=== PATIENT | female | born 1955 ===

== ENCOUNTER 2023-09-23 11:41 | Inpatient (IN) | payer MEDICARE, MEDICAID, SELFPAY ==
--- NOTE | ~2023-09-23 | XR_ITS ---
EXAMINATION: XR LUMBOSACRAL SPINE CLINICAL INFORMATION: Left back pain status post fall. COMPARISON: CT dated 01/25/2019 and 08/12/2018 TECHNIQUE: Three views of the lumbosacral spine. FINDINGS: Superior endplate compression deformity at L1 is new as compared to prior studies with 50 percent loss of vertebral body height, possibly acute. Bones are osteopenic. Moderate right convex lumbar scoliosis is centered at L2. Moderate multilevel degenerative disc disease is characterized by loss of intervertebral disc height with endplate osteophytes. Facet arthropathy is present in the lower lumbar spine. Moderate osteoarthritis in the SI joints. No acute soft tissue findings. Atherosclerotic calcifications are present in the abdominal aorta. XR/XR lumbar spine 2-3V IMPRESSION: 1. Superior endplate compression deformity at L1 with 50 percent loss of vertebral body height is new as compared to 2019 and possibly acute. 2. Moderate multilevel degenerative spondylosis. 3. Moderate right convex lumbar scoliosis. 4. Osteopenia.
--- NOTE | ~2023-09-23 | CT_ITS ---
EXAMINATION: CT ABDOMEN AND PELVIS WITH CONTRAST CLINICAL INFORMATION: Fall. Low back pain, and abdominal tenderness. New G-tube with pus. COMPARISON: Previous ultrasound and CT of the abdomen and pelvis from 2019 TECHNIQUE: Multidetector volumetric images were obtained from the superior aspect of the liver through the pubic symphysis following administration 85 mL of Omnipaque 350 intravenous contrast. Sagittal and coronal reformatted images were obtained on the technologist's workstation. Oral contrast: Yes This CT examination was performed using dose optimization techniques as appropriate, variously including the following: *Automated exposure control *Adjustment of mA and/or kV according to patient size (this includes techniques or standardized protocols for targeted exams where dose is matched to indication/reason for exam; i.e. extremities or head) *Use of iterative reconstruction technique DLP: 347 mGy-cm FINDINGS: LIVER, GALLBLADDER, AND BILIARY TREE: The liver is normal in size, shape, and attenuation. No focal hepatic lesion or biliary ductal dilatation is present. The gallbladder is unremarkable with no evidence of radiopaque gallstones, gallbladder wall thickening, or obvious pericholecystic inflammatory changes. PANCREAS: Unremarkable. SPLEEN: Unremarkable. ADRENAL GLANDS: Unremarkable. KIDNEYS AND URETERS: The kidneys are normal in size, shape, and attenuation. [place] bilateral hydronephrosis and dilatation of the bilateral ureters. This may be secondary to bladder distention. No stone. Right renal cyst. No imaging follow-up recommended. No perinephric stranding. BLADDER: Well-distended. GASTROINTESTINAL TRACT: The small and large bowel are unremarkable. The appendix is unremarkable. G-tube in the stomach satisfactory position. No fluid collection adjacent to the G-tube. There is question of mild circumferential wall thickening of the distal stomach/antrum.. ABDOMINAL WALL: Small left inguinal hernia containing fat. LYMPH NODES: Normal. VASCULAR: Severe atherosclerotic disease. No aneurysm. PELVIC VISCERA: Unremarkable. OSSEOUS STRUCTURES: Acute appearing moderate compression fracture of the L1 vertebral body. Degenerative changes of the thoracic spine and mild scoliosis. Mild degenerative changes at the hip joints. CT/CT abdomen pelvis w IV con IMPRESSION: Moderate recent appearing L1 vertebral body compression fracture. Mild bilateral hydronephrosis and ureteral dilatation. The bladder is well-distended and this may be secondary to bladder distention. Differential would include reflux. G-tube in the stomach in satisfactory position. Question wall thickening of the distal stomach/antrum. Fleischner guidelines were followed.
--- NOTE | ~2023-09-23 | CT_ITS ---
EXAMINATION: CT SOFT TISSUE NECK WITH CONTRAST CLINICAL INFORMATION: Throat cancer. Mass. COMPARISON: None available. TECHNIQUE: Following intravenous administration of 85 mL of Omnipaque 350 contrast, helical imaging was performed in the axial plane with generation of coronal and sagittal reformatted images. This CT examination was performed using dose optimization techniques as appropriate, variously including the following: *Automated exposure control *Adjustment of mA and/or kV according to patient size (this includes techniques or standardized protocols for targeted exams where dose is matched to indication/reason for exam; i.e. extremities or head) *Use of iterative reconstruction technique DLP: 856 mGy-cm FINDINGS: There is a large soft tissue mass with cystic/necrotic components involving multiple fascial spaces. Within the mucosal spaces, tumor is present throughout the left oropharyngeal wall, the left glossotonsillar sulcus, the floor of the mouth extending across the midline to the right side, and along the left lateral tongue. Tumor also infiltrates into the left lateral aspect of the soft palate, the left retromolar trigone, and the left pterygomandibular raphe. Tumor is visible in the left gingivobuccal soft tissues as well. Between the symphyseal portion of the mandible and the angle of the mandible on the left side, there is complete tumoral erosion of the left hemimandible. Within the extra-mucosal soft tissues, tumor infiltrates into the left parapharyngeal fat space, the left parotid space, the left carotid space, the left buccal space, and most significantly fills the left deep submergence vehicle operator space. Multinodular tumor extends to the skin surface in the submental space and the left anterior cervical space. Tumor is present throughout the left submandibular triangle extending to the skin surface as well. Tumor infiltrates into and around the left sternocleidomastoid muscle as well. A large 3 cm area of ulceration is visible along the skin surface at the site of tumor at the level of the left submandibular triangle. There is potential spread of tumor into the left prevertebral soft tissues at the level of the uvula. There is partial thrombosis due to compression versus tumoral infiltration of the left internal jugular vein. The left carotid arterial vasculature is patent, though displaced by tumor. The left styloid process is engulfed by tumor. The left parotid gland is also completely enveloped by tumor. Left-sided cervical adenopathy visible along the internal jugular chain. The laryngeal structures are otherwise normal. Small nodules visible within the thyroid gland. The imaged mediastinum appears normal. Emphysematous changes visible within the lungs. There is linear scarring in the right upper lobe. A 0.5 cm spiculated subpleural nodule anteriorly in the right upper lobe is nonspecific, though further assessed on the patient's dedicated chest CT acquired contemporaneously on the same day. Multilevel cervical spondylosis noted with hypertrophic facet arthropathy and a reversal of the normal cervical lordosis. The paranasal sinuses and mastoid air cells are clear. The imaged portions of the brain demonstrate no acute abnormality. 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 CT/CT soft tissue neck w IV con IMPRESSION: Large soft tissue mass as described involving mucosal surfaces throughout the head and neck and multiple extra-mucosal soft tissue compartments with adenopathy and involvement of the overlying skin surface. Spiculated 0.5 cm subpleural nodule in the right upper lobe with adjacent scarring. Emphysematous changes. Thoracic findings further described on the patient's dedicated chest CT exam acquired contemporaneously on the same day. 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
--- NOTE | ~2023-09-23 | CT_ITS ---
EXAMINATION: CT CHEST WITHOUT CONTRAST CLINICAL INFORMATION: Fall. Back and rib pain. COMPARISON: Previous chest CT from 2019 TECHNIQUE: Multidetector volumetric CT imaging of the chest was done. Axial MIP volume rendering provided. Sagittal and coronal reformatted images were obtained. This CT examination was performed using dose optimization techniques as appropriate, variously including the following: *Automated exposure control *Adjustment of mA and/or kV according to patient size (this includes techniques or standardized protocols for targeted exams where dose is matched to indication/reason for exam; i.e. extremities or head) *Use of iterative reconstruction technique DLP: 181 mGy-cm FINDINGS: LUNGS: There is linear scarring and mild traction bronchiectasis seen in the right upper lobe that is stable. There is mild biapical pleural and parenchymal scarring. There is mild emphysema. Lungs are otherwise clear. MEDIASTINUM: Normal heart size. Severe coronary artery calcification. Aortic valve calcification. Normal caliber thoracic aorta. No pericardial effusion. No enlarged lymph nodes. CORONARY ARTERY CALCIFICATION: Severe PLEURA: There is no pleural effusion. Mild pleural thickening adjacent to the rib fractures. No pneumothorax. AXILLA: No lymphadenopathy. UPPER ABDOMEN: Unremarkable. OSSEOUS STRUCTURES: There are fractures of the right 11th and 12th posterior ribs that appear acute There is a fracture of the left posterior 10th rib that appears old and ununited. There is a nondisplaced fracture of the right L1 transverse process. Compression fracture of the L1 vertebral body. CT/CT chest wo IV con IMPRESSION: Right posterior 11th and 12th and left posterior 10th rib fractures that appear acute. Old ununited left posterior 10th rib fracture. Stable scarring and bronchiectasis in the right upper lobe. Nondisplaced fracture of the right L1 transverse process and L1 compression fracture, acute, described in abdominal and pelvic CT report. Fleischner guidelines were followed.
[2023-09-23 12:04] VITALS: BP 100/60; PULSE 114; RESP 18; TEMP 37.7; O2SAT 97; BMI 20.2
--- NOTE | 2023-09-23 12:05 | ED_ITS ---
HPI - General Adult General Chief complaint: General Medical Stated complaint: Cancer PT, multiple complaints Time Seen by Provider: 09/23/23 13:38 Source: patient, family, RN notes reviewed and old records reviewed Mode of arrival: ambulatory History of Present Illness ED Provider: Sonal Flores PA-C HPI narrative: 68-year-old female with a past medical history of hypercalcemia, throat cancer, HTN, HLD, diabetes, dysphagia, HIV (noncompliant on meds x weeks), presenting to the ED due to anorexia, low back/rib pain s/p mechanical fall a few weeks ago, infected G-tube, and worsening jaw cancer from [place]. Patient states she was recently admitted to hospital in [place] due to inability to tolerate p.o., had G-tube placed at that time, and also sustained mechanical fall during visit onto back. Reports since fall has been having worsening low back pain with movement and urinary incontinence. Daughter states she brought patient from [place] the [place] for [place] care. Patient has not yet started chemotherapy or radiation. Patient has been noncompliant on her HIV medications due to inability to tolerate p.o./since recent ED admission in [place]. Denies known fever, chills, CP/SOB, nausea/vomiting, urinary retention, focal weakness. Related Data Allergies Allergy/AdvReac Type Severity Reaction Status Date / Time No Known Allergies Allergy Verified 09/23/23 12:09 [No Known Allergies*] Review of Systems 2 Review of Systems: Constitutional: + Weight loss, No Fever, No Chills, + Fatigue, No Malaise, + anorexia ENT/Mouth: + worsening jaw cancer, No Ear Pain, No Nasal Congestion,No Hoarseness, No sore throat, No Rhinorrhea, No Swallowing Difficulty Eyes: No Eye Pain, No Swelling, No Redness, No Vision Changes Cardiovascular: No Chest Pain, No SOB, No Edema, No Palpitations Respiratory: No Cough, No Sputum, No Dyspnea Gastrointestinal: No Nausea, No Vomiting, No Diarrhea, No Constipation, + Abdominal pain Genitourinary: No Dysuria, No Urinary Frequency, No Hematuria, + Urinary Incontinence, No retention, No Flank Pain Musculoskeletal: + joint pain, + Myalgias, No Joint Swelling Skin: No Skin Lesions, No rash Neuro: +Generalized Weakness, No Numbness, No Paresthesias, No Loss of Consciousness, No Dizziness\ Yes all other systems are reviewed and are negative Constitutional: Constitutional: Reports as per [facility] Past Medical History Attestation statement: The following information was validated with the patient. Source: old records reviewed Social History Social History Advance Directives: No Advance Directives Information Provided: Yes Do you have a plan to hurt others: No Plan Physical Exam ED Vital Signs: Vital Signs - 24 hr 09/23/23 12:04 09/23/23 16:03 Temperature 99.8 F 98.6 F Pulse Rate 114 H 99 Respiratory Rate 18 18 Blood Pressure 100/60 122/57 L Pulse Oximetry 97 97 Oxygen Delivery Method Room Air Room Air BMI result Body Mass Index 20.2 Const General: no acute distress Nutritional Appearance: malnourished Orientation/consciousness: patient oriented x3 Limitations: no limitations HENMT Other: Please refer to images above. Open wound as depicted with surrounding masses. Mild overlying erythema/warmth. No pus Head: Yes atraumatic Ears: hearing grossly normal bilaterally General nose exam: Normal external nose present Eyes General: appearance normal, both eyes and all related structures EOM: EOMs intact bilaterally Neck Neck: Yes no meningeal signs Chest Other: + bilateral lower posterior rib tenderness to palpation. No flail chest. No crepitus. Chest palpation & inspection: normal inspection of the chest and no crepitus Resp Effort & Inspection: normal respiratory effort and no respiratory distress Auscultation: clear to auscultation bilaterally Cardio Rate: regular rate Heart sounds: S1 normal heart sound present and S2 normal heart sound present GI Other: Please refer to images above. G-tube intact with surrounding pus and erythema. Potter intact to midline area. Inspection: Yes normal to inspection Palpation (GI): Soft to palpation, Tenderness to palpation present (GI) (Diffusely), no guarding and not rigid General: Yes no CVA tenderness Back/Spine/Pelvis Other: No midline cervical/thoracic/lumbar spinous tenderness/step-off or deformity Back: no CVA tenderness Skin Rashes: no rashes Wounds: no wounds Neuro Other: Strength intact throughout. No saddle anesthesia. Sensation intact to light touch. Neurovascular intact distally General: patient oriented x3, tone normal, moves all extremities, no meningeal signs and no focal motor deficits Cranial nerves: Yes CN's II-XII intact bilaterally Cognition (Neuro): normal cognition Gait exam (Neuro): Normal gait present Motor exam (neuro): 5/5 motor strength present throughout Extrem General: Yes normal to inspection Course Course Course Narrative: This is a Rapid Medical Examination (RME) performed by Bob Cueva PA-C in triage. Full HPI, ROS, assessment and treatment plan per primary provider in the Main ED. 68 yo female hx of HIV, jaw cancer s/p resection with g tube placed, here w/ daughter for eval of multiple complaints. she has history of jaw cancer, s/p resection approx 6 months ago. was admitted 2 mo later for FTT. while admitted, fell and hurt her low back. states she is supposed to be having chemo however has not yet started. she was d/c from hospital in [place] 3 days ago and has not eaten since this time as they did not discharge her with instructions on how to use the G-tube. admits to left lumbar pain at present. thin appearing female. NAD. G-tube noted to left abdomen. The area is dressed. Unable to examine in deptch in triage. No midline spinous tenderness or step off deformity. No paraspinal muscle tenderness. Plan: labs, UA, xr ordered -leukocytosis of 34.4. Thrombocytopenia. Hyperglycemia with glucose of 515 without anion gap, beta hydroxybutyrate mildly elevated, sodium 128 > corrected sodium for hyperglycemia is 135 -BUN 21 -lactic acid WNL XR lumbar spine 2-3V IMPRESSION: 1. Superior endplate compression deformity at L1 with 50 percent loss of vertebral body height is new as compared to 2019 and possibly acute. 2. Moderate multilevel degenerative spondylosis. 3. Moderate right convex lumbar scoliosis. 4. Osteopenia. -ESR/CRP elevated. Repeat POC 332 -1630--ED care transferred to [facility] pending remaining labs/viral testing, UA, and imaging. Anticipate admission vs transfer Reevaluation(s) Reevaluation #1: Patient received in sign-out at change of shift pending CT imaging and disposition. I reviewed the patient's case including the patient's imaging. She has extremely extensive tumor infiltration to the left side of the face, jaw, throat, neck. I did discuss this with Oncology, Dr Alejandro. She agrees with admission for IV antibiotics and pain control. She states that there is absolutely no role for surgical intervention at this time. There is no airway involvement, therefore there is no indication for transfer to tertiary facility at this time. Will discuss with the hospitalist. The patient will be seen by Oncology tomorrow Time: 19:01 Medications Administered Discontinued Medications Generic Name Dose Route Start Last Admin Trade Name Freq PRN Reason Stop Dose Admin Lactated Ringer's 1,000 mls @ 999 mls/hr 09/23/23 14:30 09/23/23 16:10 Lr IV 09/23/23 15:30 Infused .Q1H1M CHAYA Infusion Vancomycin HCl 1,000 mg/ 270 mls @ 270 mls/hr 09/23/23 14:26 09/23/23 16:08 Sodium Chloride IV 09/23/23 15:25 Infused ONCE ONE Infusion Piperacillin Sod/Tazobactam 100 mls @ 200 mls/hr 09/23/23 14:26 09/23/23 15:36 Sod 4.5 gm/ Sodium Chloride IV 09/23/23 14:55 Infused ONCE ONE Infusion Sodium Chloride 1,000 mls @ 999 mls/hr 09/23/23 14:30 09/23/23 16:09 Ns IV 09/23/23 15:30 Infused .Q1H1M CHAYA Infusion Iohexol 100 ml 09/23/23 15:48 09/23/23 15:49 Iohexol 350 Mg/Ml 100 Ml Infus..Btl IV 09/23/23 15:49 85 ml ONCE ONE Administration Morphine Sulfate 4 mg 09/23/23 17:26 09/23/23 17:39 Morphine Sulfate 4 Mg/Ml Cartridge IVPUSH 09/23/23 17:27 4 mg ONCE ONE Administration Protocol Ondansetron HCl 4 mg 09/23/23 17:26 09/23/23 17:39 Ondansetron Hcl 4 Mg/2 Ml Vial IVPUSH 09/23/23 17:27 4 mg ONCE ONE Administration Medical Decision Making Medical Decision Making MDM Narrative: 68-year-old female with a past medical history of hypercalcemia, throat cancer, HTN, HLD, diabetes, dysphagia, HIV (noncompliant on meds x weeks), presenting to the ED due to anorexia, low back/rib pain s/p mechanical fall a few weeks ago, infected G-tube, and worsening jaw cancer from [place]. On exam tachycardic, NAD, physical exam as noted above. Please refer to images. Concern for worsening undifferentiated cancer vs metastasis vs metabolic/infectious etiology including infected G-tube site. Concern for fractured ribs/vertebrae. Low suspicion for cauda equina without saddle anesthesia or focal deficits. Plan: EKG, labs, imaging, UA, lactic/blood cultures Low suspicion for severe sepsis at this time Case d/w ED Attending Dr. Thakkar also evaluated patient and is in agreement with plan Please refer to course for remaining clinical decision making, interpretation of labs/imaging results, and discussions with consultants and/or family members. Differential Diagnosis Differential Diagnoses: The differential diagnosis associated with the presentation includes As above Admission/Observation Consideration of admission/observation: Escalation of care including admission/observation considered Lab Data MDM Lab Attestation statement: I reviewed the patient's lab results. 09/23/23 12:18 09/23/23 12:18 Labs: Lab Results 09/23/23 09/23/23 09/23/23 Range/Units 12:18 14:28 14:48 WBC 34.4 H* (4.8-10.8) X10*3/uL RBC 3.59 L (4.20-5.50) X10*6/uL Hgb 11.1 L (12.0-16.0) g/dl Hct 32.2 L (37.0-47.0) % MCV 89.7 (80.0-98.0) fL MCH 30.9 (27.0-33.0) pg MCHC 34.5 (31.0-35.0) g/dl RDW 13.6 (11.0-16.0) % Plt Count 559 H (160-400) X10*3/uL MPV 10.7 (9.4-12.3) fL Immature Gran % (Auto) 1.1 H (0.0-0.4) % Neut % (Auto) 93.1 H (45-73) % Lymph % (Auto) 1.7 L (20-40) % Mcdowell % (Auto) 3.8 (2-11) % Eos % (Auto) 0.1 (0-4) % Baso % (Auto) 0.2 (0-2) % Lymph # (Auto) 0.6 L (1.2-4.9) X10*3/uL Mcdowell # (Auto) 1.3 H (0.1-1.2) X10*3/uL Eos # (Auto) 0.0 (0.0-0.4) X10*3/uL Baso # (Auto) 0.1 (0.0-0.2) X10*3/uL Abs Immat Gran (auto) 0.38 H (0.00-0.03) X10*3/uL Absolute Neuts (auto) 32.1 H (2.0-8.3) x10*3/uL Absolute Nucleated RBC 0.000 (0.0-0.012) X10*3/uL Nucleated RBC % (auto) 0.0 (0.0-0.2) /100WBC Smear Tech's Comments VERIFIED ESR 92 H (0-20) MM/HR VBG pH (7.32-7.43) VBG pCO2 mmHg VBG pO2 mmHg VBG HCO3 (22-26) mmol/L VBG O2 Saturation % VBG Base Excess mmol/L Sodium 128 L (135-145) mmol/L Potassium 3.5 (3.3-5.1) mmol/L Chloride 94 L (96-108) mmol/L Carbon Dioxide 24 (22-29) mmol/L Anion Gap 14 (12-20) BUN 21 H (9-16) mg/dL Creatinine 1.27 (0.5-1.4) mg/dL Estim Creat Clear Calc 24.6 Estimated GFR 42 POC Glucose (60-115) mg/dL Random Glucose 515 H* (60-115) mg/dL Lactic Acid 1.6 (0.5-2.0) mmol/L Calcium 12.1 H (8.4-10.2) mg/dL Magnesium 2.0 (1.6-2.6) mg/dL Total Bilirubin 0.5 (0.0-1.0) mg/dL AST 24 (5-31) U/L ALT 8 (0-31) U/L Alkaline Phosphatase 127 H (39-117) U/L C-Reactive Protein 7.64 H (< or = 0.50) mg/dL Total Protein 8.6 H (6.5-8.0) g/dL Albumin 3.5 (3.5-5.0) g/dL Lipase 65 (8-78) U/L Beta-Hydroxybutyrate 0.68 H (0.02-0.27) mmol/L Influenza Type A (PCR) (Negative) Influenza Type B (PCR) (Negative) RSV RNA Qual (PCR) (Negative) SARS-CoV-2 RNA (RT-PCR) (Negative) 09/23/23 09/23/23 09/23/23 Range/Units 14:49 15:58 17:19 WBC (4.8-10.8) X10*3/uL RBC (4.20-5.50) X10*6/uL Hgb (12.0-16.0) g/dl Hct (37.0-47.0) % MCV (80.0-98.0) fL MCH (27.0-33.0) pg MCHC (31.0-35.0) g/dl RDW (11.0-16.0) % Plt Count (160-400) X10*3/uL MPV (9.4-12.3) fL Immature Gran % (Auto) (0.0-0.4) % Neut % (Auto) (45-73) % Lymph % (Auto) (20-40) % Mcdowell % (Auto) (2-11) % Eos % (Auto) (0-4) % Baso % (Auto) (0-2) % Lymph # (Auto) (1.2-4.9) X10*3/uL Mcdowell # (Auto) (0.1-1.2) X10*3/uL Eos # (Auto) (0.0-0.4) X10*3/uL Baso # (Auto) (0.0-0.2) X10*3/uL Abs Immat Gran (auto) (0.00-0.03) X10*3/uL Absolute Neuts (auto) (2.0-8.3) x10*3/uL Absolute Nucleated RBC (0.0-0.012) X10*3/uL Nucleated RBC % (auto) (0.0-0.2) /100WBC Smear Tech's Comments ESR (0-20) MM/HR VBG pH 7.44 H (7.32-7.43) VBG pCO2 38 mmHg VBG pO2 43 mmHg VBG HCO3 26 (22-26) mmol/L VBG O2 Saturation 74.0 % VBG Base Excess 2.6 mmol/L Sodium (135-145) mmol/L Potassium (3.3-5.1) mmol/L Chloride (96-108) mmol/L Carbon Dioxide (22-29) mmol/L Anion Gap (12-20) BUN (9-16) mg/dL Creatinine (0.5-1.4) mg/dL Estim Creat Clear Calc Estimated GFR POC Glucose 332 H (60-115) mg/dL Random Glucose (60-115) mg/dL Lactic Acid (0.5-2.0) mmol/L Calcium (8.4-10.2) mg/dL Magnesium (1.6-2.6) mg/dL Total Bilirubin (0.0-1.0) mg/dL AST (5-31) U/L ALT (0-31) U/L Alkaline Phosphatase (39-117) U/L C-Reactive Protein (< or = 0.50) mg/dL Total Protein (6.5-8.0) g/dL Albumin (3.5-5.0) g/dL Lipase (8-78) U/L Beta-Hydroxybutyrate (0.02-0.27) mmol/L Influenza Type A (PCR) NEGATIVE (Negative) Influenza Type B (PCR) NEGATIVE (Negative) RSV RNA Qual (PCR) NEGATIVE (Negative) SARS-CoV-2 RNA (RT-PCR) NEGATIVE (Negative) Independent Interpretation I performed an independent interpretation of an: EKG, Plain X-Ray and CT Scan Radiology Impression Discussion of test interpretation with radiology: I have reviewed the radiologist's reading. Independent Historian Clinical information obtained from an independent historian. History obtained from or confirmed by: Other (Daughter) External Record Review External record reviewed: Inpatient record, Office record, Outpatient record, Prior outpatient labs, Prior outpatient radiology, Primary care record and Outside ED record Tests considered The following testing was considered but not selected: As above Prescription Management I considered prescription management with: Pain Medication and Antibiotic Chronic Conditions Patient?s care impacted by: Diabetes and Cancer Social Determinants Patient?s care significantly limited by Social Determinants of Health including: Low income, Problems related to primary support group and Other Social Determinant of Health Critical Care Time Critical Care Time Critical Care Time: Yes Total Critical Care Time: 75 Attestation: I have personally provided critical care time exclusive of time spent on separately billable procedures. Time includes review of lab data, radiology results, discussion with consultants, and monitoring for potential decompensation. Intervention performed as documented. Discharge Plan Discharge Clinical Impression: Facial mass, Closed compression fracture of L1 vertebra, Acute hyperglycemia, Closed rib fracture Patient Disposition: Admitted As Inpatient Print Language: Kyrgyz
[2023-09-23 12:44] LABS: Basophils Absolute Auto 0.1 X10*3/uL (0.0-0.2); Basophils Percent Auto 0.2 % (0-2); Eosinophils Percent Auto 0.1 % (0-4); Hematocrit 32.2 % (37.0-47.0); Hemoglobin 11.1 g/dl (12.0-16.0); Imm Gran Abs Auto 0.38 X10*3/uL (0.00-0.03); Imm Gran Pct Auto 1.1 % (0.0-0.4); Lymphocytes Absolute Auto 0.6 X10*3/uL (1.2-4.9); Lymphocytes Percent Auto 1.7 % (20-40); MANUAL DIFF FLAG SCAN; Mean Corpuscular HGB Conc 34.5 g/dl (31.0-35.0); Mean Corpuscular Hemoglobin 30.9 pg (27.0-33.0); Mean Corpuscular Volume 89.7 fL (80.0-98.0); Mean Platelet Volume 10.7 fL (9.4-12.3); Monocytes Absolute Auto 1.3 X10*3/uL (0.1-1.2); Monocytes Percent Auto 3.8 % (2-11); Neutrophils Absolute Auto 32.1 x10*3/uL (2.0-8.3); Neutrophils Percent Auto 93.1 % (45-73); Platelet Count 559 X10*3/uL (160-400); Red Blood Count 3.59 X10*6/uL (4.20-5.50); Red Cell Distribution Width 13.6 % (11.0-16.0); SCAN SMEAR FLAG 1
[2023-09-23 12:51] LABS: White Blood Count 34.4 X10*3/uL (4.8-10.8)
[2023-09-23 13:04] LABS: Alanine Aminotransferase 8 U/L (0-31); Albumin Level 3.5 g/dL (3.5-5.0); Alkaline Phosphatase 127 U/L (39-117); Anion Gap 14 (12-20); Aspartate Amino Transferase 24 U/L (5-31); Bilirubin Total 0.5 mg/dL (0.0-1.0); Blood Urea Nitrogen 21 mg/dL (9-16); Calcium 12.1 mg/dL (8.4-10.2); Carbon Dioxide 24 mmol/L (22-29); Chloride 94 mmol/L (96-108); Creatinine Clr Calc Pharmacy 24.6; Estimated Glomerular Filt Rate 42; Glucose Random 515 mg/dL (60-115); Lipase 65 U/L (8-78); Potassium 3.5 mmol/L (3.3-5.1); Sodium 128 mmol/L (135-145); Total Protein 8.6 g/dL (6.5-8.0)
[2023-09-23 13:13] LABS: SLIDE REVIEW VERIFIED
[2023-09-23 14:20] LABS: Beta-Hydroxybutyrate 0.68 mmol/L (0.02-0.27)
[2023-09-23 14:49] LABS: Lactic Acid 1.6 mmol/L (0.5-2.0)
--- NOTE | 2023-09-23 14:54 | ECG_ITS ---
Test Reason : tachycardia Blood Pressure : / mmHG Vent. Rate : 092 BPM Atrial Rate : 092 BPM P-R Int : 146 ms QRS Dur : 074 ms QT Int : 350 ms P-R-T Axes : 053 009 023 degrees QTc Int : 432 ms Normal sinus rhythm Nonspecific ST abnormality Abnormal ECG When compared to the previous EKG of No significant changes seen Referred By: Sonal Flores Electronically Signed By:JOHNSNO LOMELI MD
[2023-09-23 14:56] LABS: Venous Blood Gas Refer to POC result
[2023-09-23 14:56] LABS: VBG Base Excess 2.6 mmol/L; VBG HCO3 26 mmol/L (22-26); VBG pCO2 38 mmHg; VBG pH 7.44 (7.32-7.43); VBG pO2 43 mmHg
[2023-09-23 15:06] LABS: C Reactive Protein 7.64 mg/dL (< or = 0.50)
[2023-09-23] MEDS: Piperacillin Sodium/Tazobactam 4.5 GM in 0.9 % Sodium Chloride 100 ML IV (15:06)
[2023-09-23] MEDS: vancomycin HCL 1,000 MG in 0.9 % Sodium Chloride 250 ML 270 MG IV (15:08)
[2023-09-23] MEDS: 0.9 % Sodium Chloride 1,000 ML 999 ML IV (15:08)
[2023-09-23] MEDS: Lactated Ringers 1,000 ML 999 ML IV (15:09)
--- NOTE | 2023-09-23 15:17 | PC.NURSE ---
20gIV placed in the right as well as in the left forearm. patent/intact. labs obtained/sent to lab. IVF/abx administered per provider order. pt waiting to go to CT at this time. plan of care ongoing.
--- NOTE | 2023-09-23 15:25 | PC.NURSE ---
pt to CT at this time.
[2023-09-23 15:42] LABS: Erythrocyte Sedimentation Rate 92 MM/HR (0-20)
[2023-09-23] MEDS: iohexoL 350 MG/ML 100 ML INFUS..BTL IV (15:49)
[2023-09-23 16:02] LABS: Glucose, Whole Blood 332 mg/dL (60-115)
[2023-09-23 16:03] VITALS: BP 122/57; PULSE 99; RESP 18; TEMP 37; O2SAT 97
[2023-09-23] MEDS: Morphine Sulfate 4 MG/ML CARTRIDGE IVPUSH (17:39)
[2023-09-23] MEDS: ondansetron HCL 4 MG/2 ML VIAL IVPUSH (17:39)
--- NOTE | 2023-09-23 17:44 | PC.NURSE ---
pt c/o 1010 pain in left side of face as well as lower back. provider notified/aware. medication administered per provider order. effectiveness pending.
[2023-09-23 18:23] LABS: Influenza A PCR NEGATIVE (Negative); Influenza B PCR NEGATIVE (Negative); Resp Syncy Virus RNA Qual PCR NEGATIVE (Negative); SARS COV2 PCR INHOUSE NEGATIVE (Negative)
--- NOTE | 2023-09-23 19:16 | P.HPHOSP_ITS ---
History of Present Illness Date of Service: 09/23/23 Attending physician on admission: Rudi Arambula Chief Complaint: anorexia, back pain 68-year-old female with a past medical history of hypercalcemia, throat cancer, HTN, HLD, diabetes, dysphagia, HIV (noncompliant on meds x weeks), presenting to the ED due to anorexia, low back/rib pain s/p mechanical fall a few weeks ago, infected G-tube, and worsening jaw cancer from [place]. Patient states she was recently admitted to hospital in [place] due to inability to tolerate p.o., had G-tube placed at that time, and also sustained mechanical fall during visit onto back. Reports since fall has been having worsening low back pain with movement and urinary incontinence. Daughter states she brought patient [place]. THe patient and her daughter report she underwent resection of the gums and left jaw in November 2022 and was seen by oncology. Reports biopsy in january was negative for malignancy. She then developed lesions on the left cheek and again underwent excision. She was then told she has cancer of the ?jaw and that there was no chemo or radiation treatment available for her. She has developed progressive dysphagia and anorexia and was recently hospitalized in [facility] in the last few weeks and had g tube placed. Daughter states she was on glucerna but does not have any additional information about her tube feeds. She has been tolerating pureed diet and thin liquids but still does not take in much PO. She has also noted some purulent drainage from the site of the g tube insertion. She denies fevers, chills, abd pain, nausea, vomiting, ongoing dysphagia, cough, dizziness, sob, chest pain. She is complaining of back pain. Of note, while in the hospital it is reported the patient was put in charge of managing her home meds and due to the size of her HIV meds has not taken these in days vs weeks but is unsure. She did live in [place] 3 years ago and had been following with [facility] for infectious disease. On arrival, tachycardic to 114, vitals otherwise stable. She has a significant leukocytosis of 34.4 with left shift. She has a mild normocytic anemia with h/h 11.1/32.2%, plt 559. Creat 1.27, bun 21, sodium 128, chloride 94, calcium 12.1. Initial glucose 515, improved to 332 on admission. CRP 7.64, ESR 92. VBG ph 7.44, pco2 38, bicarb 26. Lumbar spine x-ray shows superior endplate compression deformity at L1 with 50% loss of vertebral body height as well as multilevel degenerative changes and complex lumbar scoliosis as well as osteopenia. Shows right posterior 11th and 12th and left posterior 10th rib fractures, possibly acute versus subacute with stable scarring and bronchiectasis in the right upper lobe. CT abdomen/pelvis shows again the L1 vertebral body compression fracture as well as mild bilateral hydronephrosis and ureteral dilatation possibly related to bladder distention. G-tube in the stomach is in satisfactory position. CT soft tissue neck shows large soft tissue mass involving mucosal surfaces throughout the head and neck and multiple extra mucosal soft tissue compartments with adenopathy and involvement of the overlying skin surface. 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 In the ED, treated with IV LR, 4 mg morphine, IV NS, Zosyn, ondansetron, and vancomycin. Review of Systems 2 Review of Systems: Yes all other systems are reviewed and are negative [facility] Medical History Hypercalcemia Dysphagia HLD (hyperlipidemia) HTN (hypertension) HIV (human immunodeficiency virus infection) Type 2 diabetes mellitus Cancer of head and neck Social History Patient Tobacco Use Status: Former Tobacco user Smoked in Last 30 Days: No Use of substances other than those prescribed or required for medical reasons: No Advance Directives: No Advance Directives Information Provided: Yes Do you have a plan to hurt others: No Plan Nutrition Risks: Difficulty chewing and Difficulty swallowing Meds Allergies Allergy/AdvReac Type Severity Reaction Status Date / Time No Known Allergies Allergy Verified 09/23/23 12:09 [No Known Allergies*] Home Medications ?Medication ?Instructions ?Recorded ?Confirmed ?Last Taken ?Type No Known Home Meds 09/23/23 09/23/23 Unknown History Physical Exam 2 Vital Signs and Narrative: Vital Signs: Last Vital Signs Temp 98.6 F 09/23/23 16:03 Pulse 99 09/23/23 16:03 Resp 18 09/23/23 16:03 BP 122/57 L 09/23/23 16:03 Pulse Ox 97 09/23/23 16:03 O2 Del Method Room Air 09/23/23 16:03 BMI result Body Mass Index 20.2 Constitutional - Awake and Alert, No apparent distress Eyes - PERRLA, EOMI Cardiovascular - S1S2, RRR, No edema Respiratory - Normal lung expansion, Normal respiratory effort, No respiratory distress, CTA bilaterally Gastrointestinal - NT / ND; +BS; No rebound or guarding. G tube in place with surrounding purulent/black drainage and erythema. [place] intact to midline Extremities - no calf tenderness bilaterally, no swelling Musculoskeletal - Normal inspection, normal ROM Skin - Warm/Dry. Extensive invasive tumor involving the left face/neck with ulceration and overlying erythema/slough Neurological - Alert & oriented x3 Psychological - Appropriate affect Results Labs 09/23/23 12:18 09/23/23 12:18 Labs: Laboratory Results - last 24 hr 09/23/23 09/23/23 09/23/23 12:18 14:28 14:48 MCV 89.7 MCH 30.9 MCHC 34.5 RDW 13.6 Plt Count 559 H MPV 10.7 Immature Gran % (Auto) 1.1 H Neut % (Auto) 93.1 H Lymph % (Auto) 1.7 L [place] % (Auto) 3.8 Eos % (Auto) 0.1 Baso % (Auto) 0.2 Lymph # (Auto) 0.6 L [place] # (Auto) 1.3 H Eos # (Auto) 0.0 Baso # (Auto) 0.1 Abs Immat Gran (auto) 0.38 H Absolute Neuts (auto) 32.1 H Absolute Nucleated RBC 0.000 Nucleated RBC % (auto) 0.0 Smear Tech's Comments VERIFIED ESR 92 H VBG pH VBG pCO2 VBG pO2 VBG HCO3 VBG O2 Saturation VBG Base Excess Anion Gap 14 Estim Creat Clear Calc 24.6 Estimated GFR 42 POC Glucose Random Glucose 515 H* Lactic Acid 1.6 Calcium 12.1 H Magnesium 2.0 Total Bilirubin 0.5 AST 24 ALT 8 Alkaline Phosphatase 127 H C-Reactive Protein 7.64 H Total Protein 8.6 H Albumin 3.5 Lipase 65 Beta-Hydroxybutyrate 0.68 H Influenza Type A (PCR) Influenza Type B (PCR) RSV RNA Qual (PCR) SARS-CoV-2 RNA (RT-PCR) 09/23/23 09/23/23 09/23/23 14:49 15:58 17:19 MCV MCH MCHC RDW Plt Count MPV Immature Gran % (Auto) Neut % (Auto) Lymph % (Auto) [place] % (Auto) Eos % (Auto) Baso % (Auto) Lymph # (Auto) [place] # (Auto) Eos # (Auto) Baso # (Auto) Abs Immat Gran (auto) Absolute Neuts (auto) Absolute Nucleated RBC Nucleated RBC % (auto) Smear Tech's Comments ESR VBG pH 7.44 H VBG pCO2 38 VBG pO2 43 VBG HCO3 26 VBG O2 Saturation 74.0 VBG Base Excess 2.6 Anion Gap Estim Creat Clear Calc Estimated GFR POC Glucose 332 H Random Glucose Lactic Acid Calcium Magnesium Total Bilirubin AST ALT Alkaline Phosphatase C-Reactive Protein Total Protein Albumin Lipase Beta-Hydroxybutyrate Influenza Type A (PCR) NEGATIVE Influenza Type B (PCR) NEGATIVE RSV RNA Qual (PCR) NEGATIVE SARS-CoV-2 RNA (RT-PCR) NEGATIVE Imaging Radiologist's Impressions: Impressions Lumbar Spine X-Ray 09/23/23 13:18 IMPRESSION: 1. Superior endplate compression deformity at L1 with 50 percent loss of vertebral body height is new as compared to 2019 and possibly acute. 2. Moderate multilevel degenerative spondylosis. 3. Moderate right convex lumbar scoliosis. 4. Osteopenia. Chest CT 09/23/23 16:03 IMPRESSION: Right posterior 11th and 12th and left posterior 10th rib fractures that appear acute. Old ununited left posterior 10th rib fracture. Stable scarring and bronchiectasis in the right upper lobe. Nondisplaced fracture of the right L1 transverse process and L1 compression fracture, acute, described in abdominal and pelvic CT report. Fleischner guidelines were followed. Soft Tissue Neck CT 09/23/23 16:05 IMPRESSION: Large soft tissue mass as described involving mucosal surfaces throughout the head and neck and multiple extra-mucosal soft tissue compartments with adenopathy and involvement of the overlying skin surface. Spiculated 0.5 cm subpleural nodule in the right upper lobe with adjacent scarring. Emphysematous changes. Thoracic findings further described on the patient's dedicated chest CT exam acquired contemporaneously on the same day. 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 Abdomen/Pelvis CT 09/23/23 16:13 IMPRESSION: Moderate recent appearing L1 vertebral body compression fracture. Mild bilateral hydronephrosis and ureteral dilatation. The bladder is well-distended and this may be secondary to bladder distention. Differential would include reflux. G-tube in the stomach in satisfactory position. Question wall thickening of the distal stomach/antrum. Fleischner guidelines were followed. Assessment and Plan (1) Closed rib fracture: Status: Acute (2) Facial mass: Status: Acute (3) Closed compression fracture of L1 vertebra: Status: Acute (4) Acute hyperglycemia: Status: Acute Plan 68-year-old female with a past medical history of hypercalcemia, throat cancer, HTN, HLD, diabetes, dysphagia, HIV (noncompliant on meds x weeks) admitted for futher management of extensive invasive facial/neck tumor with infection and infected g tube site with cellulitis and sepsis. #Infected g tube site with cellulitis and sepsis -leukocytosis 34.4, tachycardic. No lactic acidosis or end-organ damage. No severe sepsis -IV vancomycin and Zosyn (initiated 09/22) -G-tube in correct place per CT abdomen/pelvis -general surgery consult -nutrition consult for tube feeds. Does tolerate. Diet with thin liquids but has poor appetite -follow CBC, cultures # extensive invasive facial/neck tumor with infection r/t unspecified cancer -CT soft tissue neck shows large soft tissue masses involving mucosal surfaces throughout the head and neck and multiple extra mucosal soft tissue compartments with adenopathy and involvement of the overlying skin surface -IV vancomycin and Zosyn as above -oncology consult -not amenable to surgical resection -follow CBC, cultures -did discuss with patient and her daughter that this is likely not curative and are considering hospice options and palliative care. To be discussed further with Oncology # HIV -has been noncompliant with anti-retroviral therapy for unspecified period of time-days versus weeks -infectious disease consult -CD4 count and viral load pending -resume antiviral therapy pending med rec # chronic hypercalcemia -likely related to dehydration as well as malignancy -given IVF in the ED -oncology consult -follow electrolyte levels # acute/subacute rib fractures/L1 compression fracture s/p mechanical fall -pain management p.r.n. -PT eval # insulin-dependent type 2 diabetes with hyperglycemia -glucose on arrival 515, improved to 332 -initiate 8 units of Lantus nightly -POC glucose, diabetic diet -Humalog on sliding scale #HTN -does not appear to be on home medications at this time, monitor bp #HLD -statin dvt prophylaxis- heparin full code per patient Patient requires inpatient stay at least 2 midnights for management of cellulitis of G-tube site and infected invasive tumor of head/neck requiring broad-spectrum IV antibiotics and expert consultation and in patient with HIV who has been noncompliant with anti-retroviral therapy and is immunocompromised Quality Stroke Does the patient have a stroke diagnosis?: No VTE Prior VTE?: No VTE Risk Level:: Medical - moderate - high VTE Device Contraindication: Treatment Not Indicated VTE Drug Contraindication: N/A - Med Ordered
[2023-09-23 19:37] VITALS: BP 150/69; PULSE 94; RESP 16; TEMP 37.1; O2SAT 99
--- NOTE | 2023-09-23 20:13 | MHC.EDTECH ---
patient cleaned dry and repositioned.
[2023-09-23 20:24] VITALS: BP 140/77; PULSE 109; RESP 15; TEMP 37.1; O2SAT 96
--- NOTE | 2023-09-23 20:30 | PHA.MEDREC ---
Addendum entered by Sivan Brown 09/23/23 21:11: Called and talked to daughter on the phone to confirm medications. Daughter could not remember the medications her mom took due to her mom having old bottles from [place] and non of the up to date meds. She states as of January of 2023 herteraunt who her mom was staying within [place] told the daughter that her mom stopped started taking her medication correctly due to the difficulties of swallow pills after. The daughter states she is suppose to be on Biktarvy but her mom has not taken that correctly in a whole and does not remember the last time time she took it. The daughter also states her mom was suppose to be on insulin but does not know which insulin she is taking since that was not brought over when her mom moved here. Original Note: Pharmacy Consult ? Medication Reconciliation Pharmacy has completed the medication reconciliation. Patient states they are not taking any at home medications at the moment.
[2023-09-23] MEDS: Piperacillin Sodium/Tazobactam 2.25 GM in 0.9 % Sodium Chloride 50 ML IV (21:02)
[2023-09-23] MEDS: Heparin Sodium,Porcine 5,000 UNIT/ML VIAL 5000 UNIT SUBCUT (21:02)
--- NOTE | 2023-09-23 21:02 | PM.CNGS ---
History of Present Illness Consult details Consult date: 09/23/23 Narrative: [address] [address] Internal Med History&Physical Signed Patient: Sharlene Rviera MR#: [id number] : 1955 Acct:[id number] Age/Sex: 68 / F History of Present Illness 68-year-old female with a past medical history of hypercalcemia, throat cancer, HTN, HLD, diabetes, dysphagia, HIV (noncompliant on meds x weeks), presenting to the ED due to anorexia, low back/rib pain s/p mechanical fall a few weeks ago, infected G-tube, and worsening jaw cancer from [place]. Patient states she was recently admitted to hospital in [place] due to inability to tolerate p.o., had G-tube placed at that time, and also sustained mechanical fall during visit onto back. 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 Here to try to get further cancer care - says she is supposed to see someone to get radiation. Has been using gauze over the facial/jaw open wound PMFSH Past Medical History Medical History Hypercalcemia Dysphagia HLD (hyperlipidemia) HTN (hypertension) HIV (human immunodeficiency virus infection) Type 2 diabetes mellitus Cancer of head and neck Social History Social History Patient Tobacco Use Status: Former Tobacco user Smoked in Last 30 Days: No Use of substances other than those prescribed or required for medical reasons: No Advance Directives: No Advance Directives Information Provided: Yes Do you have a plan to hurt others: No Plan Nutrition Risks: Difficulty chewing and Difficulty swallowing Meds Allergies Allergy/AdvReac Type Severity Reaction Status Date / Time No Known Allergies Allergy Verified 09/23/23 12:09 [No Known Allergies*] Active Medications: Current Medications Acetaminophen (Acetaminophen 325 Mg Tablet) 650 mg G-TUBE Q6H PRN PRN Reason: Pain, Mild (Pain Scale 1-3) Glucose (Glucose Gel 15 Gm Gel..Gram.) 15 gm PO Q15M PRN; Protocol PRN Reason: per Hypoglycemia Standing Ord. Heparin Sodium (Porcine) (Heparin Sodium,Porcine 5,000 Unit/Ml Vial) 5,000 unit SUBCUT Q12H [facility] Piperacillin Sod/Tazobactam (Sod 2.25 gm/ Sodium Chloride) 50 mls @ 100 mls/hr IV Q6H [facility] Dextrose (D10) 250 mls @ 750 mls/hr IV Q15M PRN; Protocol PRN Reason: per Hypoglycemia Standing Ord. Vancomycin HCl 750 mg/ Sodium (Chloride) 265 mls @ 265 mls/hr IV Q24H [facility] Insulin Glargine (Insulin Glargine,Hum.Rec.Anlog 100 Unit/Ml 10 Ml Vial) 8 unit SUBCUT BEDTIME [place]AYA Insulin Human Lispro (Insulin Lispro 100 Unit/Ml 3 Ml Vial) 0 unit SUBCUT QIDACHS [facility]; Protocol Magnesium Hydroxide (Milk Of Magnesia 30 Ml Oral.Susp) 30 ml G-TUBE DAILY PRN PRN Reason: Constipation Morphine Sulfate (Morphine Sulfate 2 Mg/Ml Cartridge) 2 mg IVPUSH Q4H PRN; Protocol PRN Reason: Pain, Severe (Pain Scale 7-10) Ondansetron HCl (Ondansetron Hcl 4 Mg/2 Ml Vial) 4 mg IVPUSH Q8H PRN PRN Reason: Nausea and Vomiting Oxycodone HCl (Oxycodone Hcl Immed Release 5 Mg Tablet) 5 mg PO Q6H PRN PRN Reason: Pain, Moderate(Pain Scale 4-6) Pharmacy Consult (Consult Rx Vancomycin Dosing) 1 each MISCELLANE DAILY PRN PRN Reason: Consult order Sodium Chloride (0.9 % Sodium Chloride Flush 3 Ml Syringe) 3 ml IVFLUSH QSHIFT [facility] Sodium Hypochlorite (Sodium Hypochlorite 0.125% 473 Ml Solution) 1 appl TOPICAL DAILY [facility] Home Medications ?Medication ?Instructions ?Recorded ?Confirmed ?Last Taken ?Type atorvastatin 40 mg tablet 40 mg PO DAILY 09/23/23 09/23/23 Unknown History bictegravir 50 mg-emtricitabine 1 tab PO DAILY 09/23/23 09/23/23 Unknown History 200 mg-tenofovir alafenam 25 mg tablet (Biktarvy) empagliflozin 25 mg-linagliptin 5 1 tab PO QAM 09/23/23 09/23/23 Unknown History mg tablet (Glyxambi) fenofibrate 160 mg tablet 160 mg PO DAILY 09/23/23 09/23/23 Unknown History losartan 100 mg tablet 100 mg PO DAILY 09/23/23 09/23/23 Unknown History omeprazole 40 mg capsule,delayed 40 mg PO DAILY 09/23/23 09/23/23 Unknown History release Physical Exam Vital Signs: Vital Signs: Last Vital Signs Temp 98.8 F 09/23/23 20:24 Pulse 109 H 09/23/23 20:24 Resp 15 09/23/23 20:24 BP 140/77 H 09/23/23 20:24 Pulse Ox 96 09/23/23 20:24 O2 Del Method Room Air 09/23/23 20:24 BMI result Body Mass Index 20.2 Const: General: cooperative HEENT: Other: large fungating and ulcerative mass on left jaw and side of face open area with raw tissue see pic GI: Other: abdomen soft nontender - gtube site once cleaned up looks fine Results Labs 09/23/23 12:18 09/23/23 12:18 Labs: Abnormal lab results 09/23/23 09/23/23 09/23/23 Range/Units 12:18 14:48 14:49 WBC 34.4 H* (4.8-10.8) X10*3/uL RBC 3.59 L (4.20-5.50) X10*6/uL Hgb 11.1 L (12.0-16.0) g/dl Hct 32.2 L (37.0-47.0) % Plt Count 559 H (160-400) X10*3/uL Immature Gran % (Auto) 1.1 H (0.0-0.4) % Neut % (Auto) 93.1 H (45-73) % Lymph % (Auto) 1.7 L (20-40) % Lymph # (Auto) 0.6 L (1.2-4.9) X10*3/uL [place] # (Auto) 1.3 H (0.1-1.2) X10*3/uL Abs Immat Gran (auto) 0.38 H (0.00-0.03) X10*3/uL Absolute Neuts (auto) 32.1 H (2.0-8.3) x10*3/uL ESR 92 H (0-20) MM/HR VBG pH 7.44 H (7.32-7.43) Sodium 128 L (135-145) mmol/L Chloride 94 L (96-108) mmol/L BUN 21 H (9-16) mg/dL POC Glucose (60-115) mg/dL Random Glucose 515 H* (60-115) mg/dL Calcium 12.1 H (8.4-10.2) mg/dL Alkaline Phosphatase 127 H (39-117) U/L C-Reactive Protein 7.64 H (< or = 0.50) mg/dL Total Protein 8.6 H (6.5-8.0) g/dL Beta-Hydroxybutyrate 0.68 H (0.02-0.27) mmol/L 09/23/23 Range/Units 15:58 WBC (4.8-10.8) X10*3/uL RBC (4.20-5.50) X10*6/uL Hgb (12.0-16.0) g/dl Hct (37.0-47.0) % Plt Count (160-400) X10*3/uL Immature Gran % (Auto) (0.0-0.4) % Neut % (Auto) (45-73) % Lymph % (Auto) (20-40) % Lymph # (Auto) (1.2-4.9) X10*3/uL [place] # (Auto) (0.1-1.2) X10*3/uL Abs Immat Gran (auto) (0.00-0.03) X10*3/uL Absolute Neuts (auto) (2.0-8.3) x10*3/uL ESR (0-20) MM/HR VBG pH (7.32-7.43) Sodium (135-145) mmol/L Chloride (96-108) mmol/L BUN (9-16) mg/dL POC Glucose 332 H (60-115) mg/dL Random Glucose (60-115) mg/dL Calcium (8.4-10.2) mg/dL Alkaline Phosphatase (39-117) U/L C-Reactive Protein (< or = 0.50) mg/dL Total Protein (6.5-8.0) g/dL Beta-Hydroxybutyrate (0.02-0.27) mmol/L Short CBC 09/23/23 Range/Units 12:18 WBC 34.4 H* (4.8-10.8) X10*3/uL Hgb 11.1 L (12.0-16.0) g/dl Hct 32.2 L (37.0-47.0) % Plt Count 559 H (160-400) X10*3/uL BMP 09/23/23 12:18 Sodium 128 L Potassium 3.5 Chloride 94 L Carbon Dioxide 24 BUN 21 H Creatinine 1.27 Calcium 12.1 H Liver Function 09/23/23 Range/Units 12:18 Total Bilirubin 0.5 (0.0-1.0) mg/dL AST 24 (5-31) U/L ALT 8 (0-31) U/L Alkaline Phosphatase 127 H (39-117) U/L Albumin 3.5 (3.5-5.0) g/dL All other labs normal. Imaging Abdomen CT scan report/results: report reviewed and image reviewed Assessment and Plan (1) Facial mass: Status: Acute Plan very unfortunate 68 yo female with head and neck cancer with metastatic disease and large fungating/ulcerative mass. increasing dysphagia so now iwht gtube about 2-3 weeks placed in ID to allow for supplemental feeds. Pt s/p fall and back pain and just poor nutrition gtube not infected- normal drainage noted - clean daily and gtube feeds as per nutrition facial mass - clean with dakins solution and wet to dry dressings in ulcerated crater to be changed daily. pt needs radiation for palliative care of wound if swallowing ok then po as tolerated with supplemental gtube feeds Procedures Date of Service Date of Service: 09/23/23
[2023-09-23 21:11] LABS: Creatinine Urine 7.63 mg/dL
[2023-09-23 21:13] LABS: Glucose, Whole Blood 258 mg/dL (60-115)
[2023-09-23] MEDS: Morphine Sulfate 2 MG/ML CARTRIDGE IVPUSH (21:13)
[2023-09-23 21:14] LABS: Osmolality Urine 192 mosm/kg (373-1093)
[2023-09-23] MEDS: Insulin Glargine,Hum.rec.anlog 100 UNIT/ML 10 ML VIAL 8 UNIT SUBCUT (21:14)
[2023-09-23] MEDS: Insulin Lispro 100 UNIT/ML 3 ML VIAL SUBCUT (21:14)
--- NOTE | 2023-09-23 21:40 | PHA.PROG ---
Admission Date/Time: September 23, 2023 20:33 Indication: Skin Weight in k.823 kg Serum Creatinine - Last 168 Hours 09/23/23 12:18 Creatinine 1.27 Estimated CrCl and GFR - Last 168 Hours 09/23/23 12:18 Estim Creat Clear Calc 24.6 Estimated GFR 42 Vancomycin Loading Dose: 1,000 mg Current Vancomycin Dosing Regimen: 750 mg Q24H Vancomycin Monitoring using AUC goal of 400 - 600 range with trough as surrogate marker: 503 mg/L, & predicted trough: 15.8 mg/L Date and Time for next Vancomycin Level to be drawn: 09/24 @ 1300 Pharmacist Comments on Vancomycin Plan: Vancomycin dosing will take advantage of [employer] as a clinical decision support tool that uses Bayesian modeling to calculate individual patient's pharmacokinetic parameters and forecast the patient's drug concentration time course with the target goal AUC 24 range of 400 - 600 mg/L/hr.
[2023-09-23 23:47] VITALS: BP 132/58; PULSE 107; RESP 16; TEMP 36.4; O2SAT 94
[2023-09-24] MEDS: 0.9 % Sodium Chloride Flush 3 ML SYRINGE IVFLUSH ×2 (00:10→07:43)
[2023-09-24] MEDS: Piperacillin Sodium/Tazobactam 2.25 GM in 0.9 % Sodium Chloride 50 ML IV ×3 (02:09→14:40)
[2023-09-24] MEDS: oxyCODONE HCl Immed Release 5 MG TABLET PO (05:03)
[2023-09-24] MEDS: Omeprazole 40 MG CAPSULE.DR PO (06:05)
[2023-09-24] MEDS: Morphine Sulfate 2 MG/ML CARTRIDGE IVPUSH (06:06)
[2023-09-24 06:30] LABS: Basophils Absolute Auto 0.1 X10*3/uL (0.0-0.2); Basophils Percent Auto 0.2 % (0-2); Eosinophils Absolute Auto 0.1 X10*3/uL (0.0-0.4); Eosinophils Percent Auto 0.2 % (0-4); Hematocrit 29.8 % (37.0-47.0); Hemoglobin 10.3 g/dl (12.0-16.0); Imm Gran Abs Auto 0.52 X10*3/uL (0.00-0.03); Imm Gran Pct Auto 1.5 % (0.0-0.4); Lymphocytes Absolute Auto 0.6 X10*3/uL (1.2-4.9); Lymphocytes Percent Auto 1.6 % (20-40); MANUAL DIFF FLAG SCAN; Mean Corpuscular HGB Conc 34.6 g/dl (31.0-35.0); Mean Corpuscular Hemoglobin 31.7 pg (27.0-33.0); Mean Corpuscular Volume 91.7 fL (80.0-98.0); Mean Platelet Volume 10.9 fL (9.4-12.3); Monocytes Absolute Auto 1.7 X10*3/uL (0.1-1.2); Monocytes Percent Auto 4.9 % (2-11); Neutrophils Absolute Auto 31.6 x10*3/uL (2.0-8.3); Neutrophils Percent Auto 91.6 % (45-73); Platelet Count 456 X10*3/uL (160-400); Red Blood Count 3.25 X10*6/uL (4.20-5.50); Red Cell Distribution Width 13.9 % (11.0-16.0); SCAN SMEAR FLAG 1
[2023-09-24 06:35] LABS: White Blood Count 34.5 X10*3/uL (4.8-10.8)
[2023-09-24 07:18] VITALS: BP 109/56; PULSE 83; RESP 18; TEMP 36; O2SAT 93
[2023-09-24 07:25] LABS: Glucose, Whole Blood 161 mg/dL (60-115)
[2023-09-24 07:37] LABS: Anion Gap 14 (12-20); Blood Urea Nitrogen 12 mg/dL (9-16); Carbon Dioxide 25 mmol/L (22-29); Chloride 105 mmol/L (96-108); Estimated Glomerular Filt Rate > 60; Glucose Random 111 mg/dL (60-115); Potassium 2.9 mmol/L (3.3-5.1); Sodium 141 mmol/L (135-145)
[2023-09-24] MEDS: Fenofibrate 160 MG TABLET PO (07:42)
[2023-09-24] MEDS: Losartan Potassium 50 MG TABLET 100 MG PO (07:42)
[2023-09-24] MEDS: Atorvastatin Calcium 40 MG TABLET PO (07:42)
[2023-09-24] MEDS: Bictegrav/Emtricit/Tenofov Ala TABLET 1 TAB PO (07:42)
[2023-09-24] MEDS: Heparin Sodium,Porcine 5,000 UNIT/ML VIAL 5000 UNIT SUBCUT ×2 (07:42→19:38)
[2023-09-24 07:48] LABS: SLIDE REVIEW VERIFIED
[2023-09-24] MEDS: Insulin Lispro 100 UNIT/ML 3 ML VIAL SUBCUT ×4 (07:56→19:42)
[2023-09-24] MEDS: Potassium Chloride/H20 10 MEQ/100 ML PIGGYBACK 100 MEQ IV ×2 (08:29→09:35)
--- NOTE | 2023-09-24 08:57 | HO.PM.IMPN ---
Subjective Subjective Date of Service: 09/24/23 Review of Systems Follow up Sepsis, Gtube infection, facial/jaw carcinoma having generalized body pain Physical Exam Vital Signs: Vital Signs: Last Vital Signs Temp 96.8 F 09/24/23 07:18 Pulse 83 09/24/23 07:18 Resp 18 09/24/23 07:18 BP 109/56 L 09/24/23 07:18 Pulse Ox 93 09/24/23 07:18 O2 Del Method Room Air 09/24/23 07:18 BMI result Body Mass Index 20.2 Appearing in no acute distress lung sounds are clear to auscultation heart regular rate rhythm, clear S1, S2 positive bowel sounds, abdomen is soft, nontender neuro patient is alert x3, no focal deficits Objective Data Active Medications Acetaminophen (Acetaminophen 325 Mg Tablet) 650 mg G-TUBE Q6H PRN PRN Reason: Pain, Mild (Pain Scale 1-3) Atorvastatin Calcium (Atorvastatin Calcium 40 Mg Tablet) 40 mg PO DAILY [facility] Last Admin: 09/24/23 07:42 Dose: 40 mg Documented By: ANDREI Bictegravir/Emtricitabine/Tenofovir (Bictegrav/Emtricit/Tenofov Ala Tablet) 1 tab PO DAILY [facility] Last Admin: 09/24/23 07:42 Dose: 1 tab Documented By: ANDREI Fenofibrate (Fenofibrate 160 Mg Tablet) 160 mg PO DAILY [facility] Last Admin: 09/24/23 07:42 Dose: 160 mg Documented By: ANDREI Glucose (Glucose Gel 15 Gm Gel..Gram.) 15 gm PO Q15M PRN; Protocol PRN Reason: per Hypoglycemia Standing Ord. Heparin Sodium (Porcine) (Heparin Sodium,Porcine 5,000 Unit/Ml Vial) 5,000 unit SUBCUT Q12H [facility] Last Admin: 09/24/23 07:42 Dose: 5,000 unit Documented By: ANDREI Piperacillin Sod/Tazobactam (Sod 2.25 gm/ Sodium Chloride) 50 mls @ 100 mls/hr IV Q6H [facility] Last Infusion: 09/24/23 08:38 Dose: Infused Documented By: ANDREI Dextrose (D10) 250 mls @ 750 mls/hr IV Q15M PRN; Protocol PRN Reason: per Hypoglycemia Standing Ord. Vancomycin HCl 750 mg/ Sodium (Chloride) 265 mls @ 265 mls/hr IV Q24H [facility] Potassium Chloride (Potassium Chloride/H20) 10 meq in 100 mls @ 100 mls/hr IV Q1H [facility] Stop: 09/24/23 09:59 Last Admin: 09/24/23 08:29 Dose: 100 mls/hr Documented By: ANDREI Potassium Chloride/Sodium Chloride (Kcl 20 Meq In 0.9 % Sodium Chl) 20 meq in 1,000 mls @ 100 mls/hr IVCONT .Q10H [facility] Insulin Glargine (Insulin Glargine,Hum.Rec.Anlog 100 Unit/Ml 10 Ml Vial) 8 unit SUBCUT BEDTIME [facility] Last Admin: 09/23/23 21:14 Dose: 8 unit Documented By: GENIA Insulin Human Lispro (Insulin Lispro 100 Unit/Ml 3 Ml Vial) 0 unit SUBCUT QIDACHS [facility]; Protocol Last Admin: 09/24/23 07:56 Dose: 2 unit Documented By: ANDREI Losartan Potassium (Losartan Potassium 50 Mg Tablet) 100 mg PO DAILY [facility]; Protocol Last Admin: 09/24/23 07:42 Dose: 100 mg Documented By: ANDREI Magnesium Hydroxide (Milk Of Magnesia 30 Ml Oral.Susp) 30 ml G-TUBE DAILY PRN PRN Reason: Constipation Morphine Sulfate (Morphine Sulfate 2 Mg/Ml Cartridge) 2 mg IVPUSH Q4H PRN; Protocol PRN Reason: Pain, Severe (Pain Scale 7-10) Last Admin: 09/24/23 06:06 Dose: 2 mg Documented By: FLORENCE Omeprazole (Omeprazole 40 Mg Capsule.Dr) 40 mg PO DAILY@0630 [facility] Last Admin: 09/24/23 06:05 Dose: 40 mg Documented By: FLORENCE Ondansetron HCl (Ondansetron Hcl 4 Mg/2 Ml Vial) 4 mg IVPUSH Q8H PRN PRN Reason: Nausea and Vomiting Oxycodone HCl (Oxycodone Hcl Immed Release 5 Mg Tablet) 5 mg PO Q6H PRN PRN Reason: Pain, Moderate(Pain Scale 4-6) Last Admin: 09/24/23 05:03 Dose: 5 mg Documented By: FLORENCE Pharmacy Consult (Consult Rx Vancomycin Dosing) 1 each MISCELLANE DAILY PRN PRN Reason: Consult order Sodium Chloride (0.9 % Sodium Chloride Flush 3 Ml Syringe) 3 ml IVFLUSH QSHIFT [facility] Last Admin: 09/24/23 07:43 Dose: 3 ml Documented By: ANDREI Sodium Hypochlorite (Sodium Hypochlorite 0.125% 473 Ml Solution) 1 appl TOPICAL DAILY [facility] Labs 09/24/23 05:26 09/24/23 05:26 Labs: Laboratory Results - last 24 hr 09/23/23 09/23/23 09/23/23 12:18 14:28 14:48 MCV 89.7 MCH 30.9 MCHC 34.5 RDW 13.6 Plt Count 559 H MPV 10.7 Immature Gran % (Auto) 1.1 H Neut % (Auto) 93.1 H Lymph % (Auto) 1.7 L [place] % (Auto) 3.8 Eos % (Auto) 0.1 Baso % (Auto) 0.2 Lymph # (Auto) 0.6 L [place] # (Auto) 1.3 H Eos # (Auto) 0.0 Baso # (Auto) 0.1 Abs Immat Gran (auto) 0.38 H Absolute Neuts (auto) 32.1 H Absolute Nucleated RBC 0.000 Nucleated RBC % (auto) 0.0 Smear Tech's Comments VERIFIED ESR 92 H VBG pH VBG pCO2 VBG pO2 VBG HCO3 VBG O2 Saturation VBG Base Excess Anion Gap 14 Estim Creat Clear Calc 24.6 Estimated GFR 42 POC Glucose Random Glucose 515 H* Lactic Acid 1.6 Calcium 12.1 H Magnesium 2.0 Total Bilirubin 0.5 AST 24 ALT 8 Alkaline Phosphatase 127 H C-Reactive Protein 7.64 H Total Protein 8.6 H Albumin 3.5 Lipase 65 Beta-Hydroxybutyrate 0.68 H Urine Osmolality Ur Random Sodium Urine Creatinine Influenza Type A (PCR) Influenza Type B (PCR) RSV RNA Qual (PCR) SARS-CoV-2 RNA (RT-PCR) 09/23/23 09/23/23 09/23/23 14:49 15:58 17:19 MCV MCH MCHC RDW Plt Count MPV Immature Gran % (Auto) Neut % (Auto) Lymph % (Auto) [place] % (Auto) Eos % (Auto) Baso % (Auto) Lymph # (Auto) [place] # (Auto) Eos # (Auto) Baso # (Auto) Abs Immat Gran (auto) Absolute Neuts (auto) Absolute Nucleated RBC Nucleated RBC % (auto) Smear Tech's Comments ESR VBG pH 7.44 H VBG pCO2 38 VBG pO2 43 VBG HCO3 26 VBG O2 Saturation 74.0 VBG Base Excess 2.6 Anion Gap Estim Creat Clear Calc Estimated GFR POC Glucose 332 H Random Glucose Lactic Acid Calcium Magnesium Total Bilirubin AST ALT Alkaline Phosphatase C-Reactive Protein Total Protein Albumin Lipase Beta-Hydroxybutyrate Urine Osmolality Ur Random Sodium Urine Creatinine Influenza Type A (PCR) NEGATIVE Influenza Type B (PCR) NEGATIVE RSV RNA Qual (PCR) NEGATIVE SARS-CoV-2 RNA (RT-PCR) NEGATIVE 09/23/23 09/23/23 09/24/23 20:43 21:09 05:26 MCV 91.7 MCH 31.7 MCHC 34.6 RDW 13.9 Plt Count 456 H MPV 10.9 Immature Gran % (Auto) 1.5 H Neut % (Auto) 91.6 H Lymph % (Auto) 1.6 L [place] % (Auto) 4.9 Eos % (Auto) 0.2 Baso % (Auto) 0.2 Lymph # (Auto) 0.6 L [place] # (Auto) 1.7 H Eos # (Auto) 0.1 Baso # (Auto) 0.1 Abs Immat Gran (auto) 0.52 H Absolute Neuts (auto) 31.6 H Absolute Nucleated RBC 0.000 Nucleated RBC % (auto) 0.0 Smear Tech's Comments VERIFIED ESR VBG pH VBG pCO2 VBG pO2 VBG HCO3 VBG O2 Saturation VBG Base Excess Anion Gap 14 Estim Creat Clear Calc 34.0 Estimated GFR > 60 POC Glucose 258 H Random Glucose 111 Lactic Acid Calcium 11.0 H D Magnesium Total Bilirubin AST ALT Alkaline Phosphatase C-Reactive Protein Total Protein Albumin Lipase Beta-Hydroxybutyrate Urine Osmolality 192 L Ur Random Sodium 46.0 Urine Creatinine 7.63 Influenza Type A (PCR) Influenza Type B (PCR) RSV RNA Qual (PCR) SARS-CoV-2 RNA (RT-PCR) 09/24/23 07:21 MCV MCH MCHC RDW Plt Count MPV Immature Gran % (Auto) Neut % (Auto) Lymph % (Auto) [place] % (Auto) Eos % (Auto) Baso % (Auto) Lymph # (Auto) [place] # (Auto) Eos # (Auto) Baso # (Auto) Abs Immat Gran (auto) Absolute Neuts (auto) Absolute Nucleated RBC Nucleated RBC % (auto) Smear Tech's Comments ESR VBG pH VBG pCO2 VBG pO2 VBG HCO3 VBG O2 Saturation VBG Base Excess Anion Gap Estim Creat Clear Calc Estimated GFR POC Glucose 161 H Random Glucose Lactic Acid Calcium Magnesium Total Bilirubin AST ALT Alkaline Phosphatase C-Reactive Protein Total Protein Albumin Lipase Beta-Hydroxybutyrate Urine Osmolality Ur Random Sodium Urine Creatinine Influenza Type A (PCR) Influenza Type B (PCR) RSV RNA Qual (PCR) SARS-CoV-2 RNA (RT-PCR) Assessment and Plan (1) Complication of feeding tube: Status: Acute Plan 68-year-old female with a past medical history of hypercalcemia, throat cancer, HTN, HLD, diabetes, dysphagia, HIV (noncompliant on meds x weeks) admitted for futher management of extensive invasive facial/neck tumor with infection and infected g tube site with cellulitis and sepsis. Infected g tube site with cellulitis and sepsis leukocytosis 34.4, tachycardia. No lactic acidosis or end-organ damage. No severe sepsis IV vancomycin and Zosyn (initiated 09/22) G-tube in correct place per CT abdomen/pelvis general surgery consult for gtube replacement nutrition consult for tube feeds> glucerna 55ml/hr, free water 120Q8h , able to take some po pureed. 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 To be discussed further with Oncology HIV has not taken anti-retroviral therapy for unspecified period of time-days versus weeks infectious disease consult for alternate HIV medication (IV, liquid) CD4 count and viral load pending resume antiviral therapy chronic hypercalcemia likely related to dehydration as well as malignancy acute/subacute rib fractures/L1 compression fracture s/p mechanical fall pain management p.r.n. PT eval DM2 with hyperglycemia Lantus at bedtime ss HTN stable BP not on home bp meds HLD statin Moderate malnutrition. BMI 20.2 Gtube feeds and pureed diet dvt prophylaxis- heparin Attending Dr. Mlapah full code per patient Patient requires inpatient stay at least 2 midnights for management of cellulitis of G-tube site and infected invasive tumor of head/neck requiring broad-spectrum IV antibiotics and expert consultation and in patient with HIV who has been noncompliant with anti-retroviral therapy and is immunocompromised Quality Stroke Does the patient have a stroke diagnosis?: No VTE Prior VTE?: No VTE Risk Level:: Medical - moderate - high VTE Device Contraindication: Treatment Not Indicated VTE Drug Contraindication: N/A - Med Ordered
--- NOTE | 2023-09-24 09:33 | PM.PNGS ---
Subjective Subjective Date of Service: 09/24/23 Interval history: Status post open gastric feeding tube placement and [place] proximally 2 weeks ago. Advanced head and neck cancer Physical Exam Vital Signs: Vital Signs: Last Vital Signs Temp 96.8 F 09/24/23 07:18 Pulse 83 09/24/23 07:18 Resp 18 09/24/23 07:18 BP 109/56 L 09/24/23 07:18 Pulse Ox 93 09/24/23 07:18 O2 Del Method Room Air 09/24/23 07:18 BMI result Body Mass Index 20.2 GI: Other: Abdomen is soft. Midline incision well healed peeled johnna uneventfully removed. G-tube site demonstrates some mild erythema but no evidence of any fluctuance or abscess or gross purulence. Objective Data Active Medications Acetaminophen (Acetaminophen 325 Mg Tablet) 650 mg G-TUBE Q6H PRN PRN Reason: Pain, Mild (Pain Scale 1-3) Atorvastatin Calcium (Atorvastatin Calcium 40 Mg Tablet) 40 mg PO DAILY [facility] Last Admin: 09/24/23 07:42 Dose: 40 mg Documented By: ANDREI Bictegravir/Emtricitabine/Tenofovir (Bictegrav/Emtricit/Tenofov Ala Tablet) 1 tab PO DAILY [facility] Last Admin: 09/24/23 07:42 Dose: 1 tab Documented By: ANDREI Fenofibrate (Fenofibrate 160 Mg Tablet) 160 mg PO DAILY [facility] Last Admin: 09/24/23 07:42 Dose: 160 mg Documented By: ANDREI Glucose (Glucose Gel 15 Gm Gel..Gram.) 15 gm PO Q15M PRN; Protocol PRN Reason: per Hypoglycemia Standing Ord. Heparin Sodium (Porcine) (Heparin Sodium,Porcine 5,000 Unit/Ml Vial) 5,000 unit SUBCUT Q12H [facility] Last Admin: 09/24/23 07:42 Dose: 5,000 unit Documented By: ANDREI Hydromorphone HCl (Hydromorphone Hcl 0.5 Mg/0.5 Ml Syringe) 0.5 mg IVPUSH Q3H PRN; Protocol PRN Reason: Pain, Severe (Pain Scale 7-10) Piperacillin Sod/Tazobactam (Sod 2.25 gm/ Sodium Chloride) 50 mls @ 100 mls/hr IV Q6H [facility] Last Infusion: 09/24/23 08:38 Dose: Infused Documented By: ANDREI Dextrose (D10) 250 mls @ 750 mls/hr IV Q15M PRN; Protocol PRN Reason: per Hypoglycemia Standing Ord. Vancomycin HCl 750 mg/ Sodium (Chloride) 265 mls @ 265 mls/hr IV Q24H [facility] Potassium Chloride (Potassium Chloride/H20) 10 meq in 100 mls @ 100 mls/hr IV Q1H [facility] Stop: 09/24/23 09:59 Last Infusion: 09/24/23 09:33 Dose: Infused Documented By: ANDREI Potassium Chloride/Sodium Chloride (Kcl 20 Meq In 0.9 % Sodium Chl) 20 meq in 1,000 mls @ 100 mls/hr IVCONT .Q10H [facility] Insulin Glargine (Insulin Glargine,Hum.Rec.Anlog 100 Unit/Ml 10 Ml Vial) 8 unit SUBCUT BEDTIME [facility] Last Admin: 09/23/23 21:14 Dose: 8 unit Documented By: GENIA Insulin Human Lispro (Insulin Lispro 100 Unit/Ml 3 Ml Vial) 0 unit SUBCUT QIDACHS [facility]; Protocol Last Admin: 09/24/23 07:56 Dose: 2 unit Documented By: ANDREI Losartan Potassium (Losartan Potassium 50 Mg Tablet) 100 mg PO DAILY [facility]; Protocol Last Admin: 09/24/23 07:42 Dose: 100 mg Documented By: ANDREI Magnesium Hydroxide (Milk Of Magnesia 30 Ml Oral.Susp) 30 ml G-TUBE DAILY PRN PRN Reason: Constipation Omeprazole (Omeprazole 40 Mg Capsule.Dr) 40 mg PO DAILY@0630 [facility] Last Admin: 09/24/23 06:05 Dose: 40 mg Documented By: FLORENCE Ondansetron HCl (Ondansetron Hcl 4 Mg/2 Ml Vial) 4 mg IVPUSH Q8H PRN PRN Reason: Nausea and Vomiting Oxycodone HCl (Oxycodone Hcl Immed Release 5 Mg Tablet) 5 mg PO Q6H PRN PRN Reason: Pain, Moderate(Pain Scale 4-6) Last Admin: 09/24/23 05:03 Dose: 5 mg Documented By: FLORENCE Pharmacy Consult (Consult Rx Vancomycin Dosing) 1 each MISCELLANE DAILY PRN PRN Reason: Consult order Sodium Chloride (0.9 % Sodium Chloride Flush 3 Ml Syringe) 3 ml IVFLUSH QSHIFT [facility] Last Admin: 09/24/23 07:43 Dose: 3 ml Documented By: ANDREI Sodium Hypochlorite (Sodium Hypochlorite 0.125% 473 Ml Solution) 1 appl TOPICAL DAILY [facility] Labs 09/24/23 05:26 09/24/23 05:26 Labs: Laboratory Results - last 24 hr 09/23/23 09/23/23 09/23/23 12:18 14:28 14:48 MCV 89.7 MCH 30.9 MCHC 34.5 RDW 13.6 Plt Count 559 H MPV 10.7 Immature Gran % (Auto) 1.1 H Neut % (Auto) 93.1 H Lymph % (Auto) 1.7 L [place] % (Auto) 3.8 Eos % (Auto) 0.1 Baso % (Auto) 0.2 Lymph # (Auto) 0.6 L [place] # (Auto) 1.3 H Eos # (Auto) 0.0 Baso # (Auto) 0.1 Abs Immat Gran (auto) 0.38 H Absolute Neuts (auto) 32.1 H Absolute Nucleated RBC 0.000 Nucleated RBC % (auto) 0.0 Smear Tech's Comments VERIFIED ESR 92 H VBG pH VBG pCO2 VBG pO2 VBG HCO3 VBG O2 Saturation VBG Base Excess Anion Gap 14 Estim Creat Clear Calc 24.6 Estimated GFR 42 POC Glucose Random Glucose 515 H* Lactic Acid 1.6 Calcium 12.1 H Magnesium 2.0 Total Bilirubin 0.5 AST 24 ALT 8 Alkaline Phosphatase 127 H C-Reactive Protein 7.64 H Total Protein 8.6 H Albumin 3.5 Lipase 65 Beta-Hydroxybutyrate 0.68 H Urine Osmolality Ur Random Sodium Urine Creatinine Influenza Type A (PCR) Influenza Type B (PCR) RSV RNA Qual (PCR) SARS-CoV-2 RNA (RT-PCR) 09/23/23 09/23/23 09/23/23 14:49 15:58 17:19 MCV MCH MCHC RDW Plt Count MPV Immature Gran % (Auto) Neut % (Auto) Lymph % (Auto) [place] % (Auto) Eos % (Auto) Baso % (Auto) Lymph # (Auto) [place] # (Auto) Eos # (Auto) Baso # (Auto) Abs Immat Gran (auto) Absolute Neuts (auto) Absolute Nucleated RBC Nucleated RBC % (auto) Smear Tech's Comments ESR VBG pH 7.44 H VBG pCO2 38 VBG pO2 43 VBG HCO3 26 VBG O2 Saturation 74.0 VBG Base Excess 2.6 Anion Gap Estim Creat Clear Calc Estimated GFR POC Glucose 332 H Random Glucose Lactic Acid Calcium Magnesium Total Bilirubin AST ALT Alkaline Phosphatase C-Reactive Protein Total Protein Albumin Lipase Beta-Hydroxybutyrate Urine Osmolality Ur Random Sodium Urine Creatinine Influenza Type A (PCR) NEGATIVE Influenza Type B (PCR) NEGATIVE RSV RNA Qual (PCR) NEGATIVE SARS-CoV-2 RNA (RT-PCR) NEGATIVE 09/23/23 09/23/23 09/24/23 20:43 21:09 05:26 MCV 91.7 MCH 31.7 MCHC 34.6 RDW 13.9 Plt Count 456 H MPV 10.9 Immature Gran % (Auto) 1.5 H Neut % (Auto) 91.6 H Lymph % (Auto) 1.6 L [place] % (Auto) 4.9 Eos % (Auto) 0.2 Baso % (Auto) 0.2 Lymph # (Auto) 0.6 L [place] # (Auto) 1.7 H Eos # (Auto) 0.1 Baso # (Auto) 0.1 Abs Immat Gran (auto) 0.52 H Absolute Neuts (auto) 31.6 H Absolute Nucleated RBC 0.000 Nucleated RBC % (auto) 0.0 Smear Tech's Comments VERIFIED ESR VBG pH VBG pCO2 VBG pO2 VBG HCO3 VBG O2 Saturation VBG Base Excess Anion Gap 14 Estim Creat Clear Calc 34.0 Estimated GFR > 60 POC Glucose 258 H Random Glucose 111 Lactic Acid Calcium 11.0 H D Magnesium Total Bilirubin AST ALT Alkaline Phosphatase C-Reactive Protein Total Protein Albumin Lipase Beta-Hydroxybutyrate Urine Osmolality 192 L Ur Random Sodium 46.0 Urine Creatinine 7.63 Influenza Type A (PCR) Influenza Type B (PCR) RSV RNA Qual (PCR) SARS-CoV-2 RNA (RT-PCR) 09/24/23 07:21 MCV MCH MCHC RDW Plt Count MPV Immature Gran % (Auto) Neut % (Auto) Lymph % (Auto) [place] % (Auto) Eos % (Auto) Baso % (Auto) Lymph # (Auto) [place] # (Auto) Eos # (Auto) Baso # (Auto) Abs Immat Gran (auto) Absolute Neuts (auto) Absolute Nucleated RBC Nucleated RBC % (auto) Smear Tech's Comments ESR VBG pH VBG pCO2 VBG pO2 VBG HCO3 VBG O2 Saturation VBG Base Excess Anion Gap Estim Creat Clear Calc Estimated GFR POC Glucose 161 H Random Glucose Lactic Acid Calcium Magnesium Total Bilirubin AST ALT Alkaline Phosphatase C-Reactive Protein Total Protein Albumin Lipase Beta-Hydroxybutyrate Urine Osmolality Ur Random Sodium Urine Creatinine Influenza Type A (PCR) Influenza Type B (PCR) RSV RNA Qual (PCR) SARS-CoV-2 RNA (RT-PCR) Procedures Date of Service Date of Service: 09/24/23 Progress Note: A&P Assessment and plan (1) Complication of feeding tube: Status: Acute Plan Conservative therapy at G-tube site for now including local wound care and IV antibiotics. To follow Time Spent With Patient Time: Total time managing care of this patient today ____ minutes. Quality Stroke Does the patient have a stroke diagnosis?: No VTE Prior VTE?: No VTE Risk Level:: Medical - moderate - high VTE Device Contraindication: Treatment Not Indicated VTE Drug Contraindication: N/A - Med Ordered
[2023-09-24 10:41] VITALS: BMI 20.2
[2023-09-24 11:10] LABS: Glucose, Whole Blood 162 mg/dL (60-115)
[2023-09-24] MEDS: KCl 20 mEq in 0.9 % Sodium ChL 20 MEQ/1,000 ML IV.SOLN 100 MEQ IVCONT ×2 (11:23→21:42)
--- NOTE | 2023-09-24 11:36 | P.CNHO_ITS ---
Subjective - Subjective Chief complaint: Enlarging necrotic left mandibular mass Patient: new to practice Consult date: 09/24/23 Primary Care Provider: Unknown Physician HPI - Consult Narrative Reason for consult: Head and neck cancer Narrative: Sharlene Alanis is a 68 year old female who was diagnosed with left mandibular/head and neck cancer in [place] in January 2024. Patient moved to [place] 2 days ago, her daughter brought her to the emergency department yesterday since she noticed pus coming out of G-tube site. Leading to the patient, she 1st noticed ulcer over the gum of her left mandible around November 2023. She saw a dentist, this kept enlarging and finally in January she underwent biopsy. She was told that this was cancer. She had surgery in February. Subsequently she developed mass that continued to grow involve a large part of her left lower face. She says she had another surgery about 2 weeks ago. After the 2nd surgery she had difficulty coming out of anesthesia, she needed 2 units blood transfusion. She states that she never received any chemotherapy or radiation treatment in [place]. She has longstanding HIV, she has been unable to take her anti- retroviral therapy because of difficulty swallowing in the last 2 weeks. Patient has discomfort from the tumor, she reports loss of appetite and weight loss. She had a feeding tube/G-tube placed 2 weeks ago. She is now going to live with her daughter in [place]. She is inquiring about treatment of her cancer. She is an ex-smoker. She does not consume alcohol. Review of Systems - Constitutional Reports as per HPI, Reports lack of energy, Reports malaise, Reports poor appetite, Reports weakness, Reports weight loss - ENT Reports dental pain, Reports dysphagia, Reports dry mouth, Reports otalgia, Reports mouth pain, Reports neck mass Oncology Screenings - ECOG Performance Status ECOG Performance Status: 2 [facility] Medical History: Medical History (Last Updated 09/24/23 @ 16:29 by Luz Covarrubias MD) Cancer of head and neck Dysphagia HIV (human immunodeficiency virus infection) HLD (hyperlipidemia) HTN (hypertension) Hypercalcemia Leukocytosis Type 2 diabetes mellitus Social History: Social History (Last Reviewed 09/24/23 @ 16:25 by Luz Covarrubias MD) Living Situation History: Household Members: None Housing: Apartment Do you presently have visiting nurse or other home services: No Tobacco History: Patient Tobacco Use Status: Former Tobacco user Occupation Assessmet: service: No Home Medications and Allergies Current Medications: Current Medications Acetaminophen (Acetaminophen 325 Mg Tablet) 650 mg G-TUBE Q6H PRN PRN Reason: Pain, Mild (Pain Scale 1-3) Atorvastatin Calcium (Atorvastatin Calcium 40 Mg Tablet) 40 mg PO DAILY [facility] Last Admin: 09/24/23 07:42 Dose: 40 mg Bictegravir/Emtricitabine/Tenofovir (Bictegrav/Emtricit/Tenofov Ala Tablet) 1 tab PO DAILY [facility] Last Admin: 09/24/23 07:42 Dose: 1 tab Fenofibrate (Fenofibrate 160 Mg Tablet) 160 mg PO DAILY [facility] Last Admin: 09/24/23 07:42 Dose: 160 mg Glucose (Glucose Gel 15 Gm Gel..Gram.) 15 gm PO Q15M PRN; Protocol PRN Reason: per Hypoglycemia Standing Ord. Heparin Sodium (Porcine) (Heparin Sodium,Porcine 5,000 Unit/Ml Vial) 5,000 unit SUBCUT Q12H [facility] Last Admin: 09/24/23 07:42 Dose: 5,000 unit Hydromorphone HCl (Hydromorphone Hcl 0.5 Mg/0.5 Ml Syringe) 0.5 mg IVPUSH Q3H PRN; Protocol PRN Reason: Pain, Severe (Pain Scale 7-10) Piperacillin Sod/Tazobactam (Sod 2.25 gm/ Sodium Chloride) 50 mls @ 100 mls/hr IV Q6H [facility] Last Infusion: 09/24/23 08:38 Dose: Infused Dextrose (D10) 250 mls @ 750 mls/hr IV Q15M PRN; Protocol PRN Reason: per Hypoglycemia Standing Ord. Vancomycin HCl 750 mg/ Sodium (Chloride) 265 mls @ 265 mls/hr IV Q24H [facility] Potassium Chloride/Sodium Chloride (Kcl 20 Meq In 0.9 % Sodium Chl) 20 meq in 1,000 mls @ 100 mls/hr IVCONT .Q10H [facility] Last Admin: 09/24/23 11:23 Dose: 100 mls/hr Insulin Glargine (Insulin Glargine,Hum.Rec.Anlog 100 Unit/Ml 10 Ml Vial) 8 unit SUBCUT BEDTIME [facility] Last Admin: 09/23/23 21:14 Dose: 8 unit Insulin Human Lispro (Insulin Lispro 100 Unit/Ml 3 Ml Vial) 0 unit SUBCUT QIDACHS [facility]; Protocol Last Admin: 09/24/23 07:56 Dose: 2 unit Losartan Potassium (Losartan Potassium 50 Mg Tablet) 100 mg PO DAILY [facility]; Protocol Last Admin: 09/24/23 07:42 Dose: 100 mg Magnesium Hydroxide (Milk Of Magnesia 30 Ml Oral.Susp) 30 ml G-TUBE DAILY PRN PRN Reason: Constipation Omeprazole (Omeprazole 40 Mg Capsule.Dr) 40 mg PO DAILY@0630 [facility] Last Admin: 09/24/23 06:05 Dose: 40 mg Ondansetron HCl (Ondansetron Hcl 4 Mg/2 Ml Vial) 4 mg IVPUSH Q8H PRN PRN Reason: Nausea and Vomiting Oxycodone HCl (Oxycodone Hcl Immed Release 5 Mg Tablet) 5 mg PO Q6H PRN PRN Reason: Pain, Moderate(Pain Scale 4-6) Last Admin: 09/24/23 05:03 Dose: 5 mg Pharmacy Consult (Consult Rx Vancomycin Dosing) 1 each MISCELLANE DAILY PRN PRN Reason: Consult order Sodium Chloride (0.9 % Sodium Chloride Flush 3 Ml Syringe) 3 ml IVFLUSH QSHIFT [facility] Last Admin: 09/24/23 07:43 Dose: 3 ml Sodium Hypochlorite (Sodium Hypochlorite 0.125% 473 Ml Solution) 1 appl TOPICAL DAILY [facility] Home Medications ?Medication ?Instructions ?Recorded ?Confirmed ?Type atorvastatin 40 mg tablet 40 mg PO DAILY 09/23/23 09/23/23 History bictegravir 50 mg-emtricitabine 1 tab PO DAILY 09/23/23 09/23/23 History 200 mg-tenofovir alafenam 25 mg tablet (Biktarvy) empagliflozin 25 mg-linagliptin 5 1 tab PO QAM 09/23/23 09/23/23 History mg tablet (Glyxambi) fenofibrate 160 mg tablet 160 mg PO DAILY 09/23/23 09/23/23 History insulin glargine 100 unit/mL 8 unit subcut BEDTIME 09/23/23 09/23/23 History subcutaneous solution (Lantus U-100 Insulin) losartan 100 mg tablet 100 mg PO DAILY 09/23/23 09/23/23 History omeprazole 40 mg capsule,delayed 40 mg PO DAILY 09/23/23 09/23/23 History release Allergies Allergy/AdvReac Type Severity Reaction Status Date / Time No Known Allergies Allergy Verified 09/23/23 12:09 [No Known Allergies*] Physical Exam Vital signs: Vital Signs Temp 96.8 F 09/24/23 07:18 Pulse 83 09/24/23 07:18 Resp 18 09/24/23 07:18 BP 109/56 L 09/24/23 07:18 Pulse Ox 93 09/24/23 07:18 O2 Del Method Room Air 09/24/23 07:18 Intake & Output 09/23/23 09/24/23 09/24/23 18:59 06:59 18:59 Intake Total 2370 / 2470 100 / 2470 250 / 250 Output Total 0 / 0 Balance 2370 / 2470 100 / 2470 250 / 250 Urine Output (Average ml/kg/hr) 0.00 0.00 Intake: Intake, IV Amount 2370 / 2470 100 / 2470 250 / 250 0.9 % Sodium Chloride 1,000 ml 1000 / 1000 @ 999 mls/hr IV .Q1H1M [facility] Rx#: [id number] Lactated Ringers 1,000 ml @ 999 1000 / 1000 mls/hr IV .Q1H1M [facility] Rx#: [id number] Piperacillin Sodium/Tazobactam 100 / 100 50 / 50 2.25 gm In 0.9 % Sodium Chloride 50 ml @ 100 mls/hr IV Q6H [facility] Rx#:[id number] Piperacillin Sodium/Tazobactam 100 / 100 4.5 gm In 0.9 % Sodium Chloride 100 ml @ 200 mls/hr IV ONCE ONE Rx#:[id number] Potassium Chloride/H20 10 meq 200 / 200 In 100 ml @ 100 mls/hr IV Q1H [facility] Rx#:[id number] vancomycin HCL 1,000 mg In 0.9 270 / 270 % Sodium Chloride 250 ml @ 270 mls/hr IV ONCE ONE Rx#: [id number] Output: Output, Urine Amount 0 / 0 Other: NPO Yes Number of Bowel Movements 0 Last Bowel Movement 09/20/23 Weight 40.823 kg 40.823 kg Weight 40.823 kg - Constitutional Present: mild distress, thin - Routine HEENT Exam Head: Present: facial swelling Eye: Present: EOMI Comments: She has large tumor involving most of the lower part of her left face extending into the neck area - Routine Neck Exam Present: swelling - Routine Respiratory Exam Present: CTAB - Routine Cardiovascular Exam Cardiovascular: Present: S1, S2 Hem/Onc Consult Result - Labs CBC & Chem 7: 09/24/23 05:26 09/26/23 05:50 Labs: Short CBC 09/23/23 09/24/23 Range/Units 12:18 05:26 WBC 34.4 H* 34.5 H* (4.8-10.8) X10*3/uL Hgb 11.1 L 10.3 L (12.0-16.0) g/dl Hct 32.2 L 29.8 L (37.0-47.0) % Plt Count 559 H 456 H (160-400) X10*3/uL BMP 09/23/23 09/24/23 12:18 05:26 Sodium 128 L 141 Potassium 3.5 2.9 L* Chloride 94 L 105 Carbon Dioxide 24 25 BUN 21 H 12 Creatinine 1.27 0.92 Calcium 12.1 H 11.0 H D Liver Function 09/23/23 Range/Units 12:18 Total Bilirubin 0.5 (0.0-1.0) mg/dL AST 24 (5-31) U/L ALT 8 (0-31) U/L Alkaline Phosphatase 127 H (39-117) U/L Albumin 3.5 (3.5-5.0) g/dL Assessment and Plan Patient Active problem list reviewed?: Yes (1) Squamous cell carcinoma of mouth Status: Acute Assessment and plan: 1. 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 Review of few records from [place] revealed that she had a biopsy on 02/11/2023 of left mandible bone segment with superior gum tumor biopsy: Squamous cell carcinoma, moderately differentiated invading into the skeletal muscle with the tumor lytic thickness of at least 6 mm, measuring 3 cm in greatest dimension. Bone invasion not identified. She was staged as AJCC pT2 pNX. According to patient and her daughter, she underwent local resection but no radiation or systemic therapy. She had regrowth of the tumor, CT neck performed 06/03/2023 at [facility] revealed postsurgical changes in the left mandible. There was evidence of surgical removal of left side of mandible from left anterior mandible into the mandibular angle which still remains and the coronoid process is still present. Large enhancing multilobulated mass measuring 3.4 x 1.8 x 4.8 cm suspicious for malignancy in the left mandibular area. Contains multiple areas of necrosis involving the left masseter muscle. Mass is abutting left mandibular gland and invading left submandibular gland. Apparently she had a reexcision a few weeks ago in [place]. She has had a feeding tube placed she is having difficulty eating food although she is still able to swallow pills. Imaging with CT neck, chest, abdomen and pelvis at [facility] 09/23/2023 reveals large soft tissue mass with cystic/necrotic components involving multiple facial complaints. Tumor is present throughout the left oropharyngeal wall, left glossotonsillar sulcus, floor of mouth extending across midline, involvement of left lateral tongue. Tumor infiltrates into left lateral aspect of soft palate, left retromolar trigone and pterygomandibular raphe. Multinodular tumor extends into skin surface in the submental space and left anterior cervical space. Tumor infiltrates into and around the left sternocleidomastoid muscle as well. Potential spread of tumor into left prevertebral soft tissue at the level of the Uvula. Partial thrombosis due to compression versus tumoral infiltration of left internal jugular vein. The left styloid process is engulfed by tumor as his left parotid gland. Imaged mediastinum appears normal. CT chest/abdomen and pelvis showed evidence of metastatic disease. Patient is now here, living with her daughter. Patient and daughter are now seeking oncology care here. Typically, for such advanced oropharyngeal cancers, current chemoradiation therapy or induction chemotherapy is administered in- patient setting. This is outside scope of [facility]. Patient will need referral to [facility], she will need Radiation Oncology consultation as well. This was explained to patient and her daughter. I thank you for this referral. - Time Spent With Patient Time Spent with Patient (in minutes): 45
[2023-09-24] MEDS: Sodium Hypochlorite 0.125% 473 ML SOLUTION 1 APPL TOPICAL (11:50)
[2023-09-24 12:44] VITALS: O2SAT 96
[2023-09-24] MEDS: HYDROmorphone HCl 0.5 MG/0.5 ML SYRINGE IVPUSH ×2 (12:45→19:46)
--- NOTE | 2023-09-24 12:54 | MHC.CLN ---
NUTRITION DIET=REGULAR, PUREE CONSISTENCY. LIBERALIZED FROM DIABETIC DIET TO PROMOTE PO INTAKE. RECEIVED G-TUBE APPROX 2 WEEKS AGO. WHEN ABLE, RECOMMEND G-TUBE FEEDING MAX GOAL RATE GLUCERNA AT 55 ML PER HOUR, FREE WATER FLUSHES 120 ML Q 8 HOURS. PROVIDES 1320 KCALS (32.4 KCALS/KG), 55 G PROTEIN (1.35 G/KG), 1469 ML FREE WATER FROM FORMULA AND FLUSH (36 ML/KG). START RATE 20 ML PER HOUR, INCREASE 10 ML EVERY 4 HOURS TO MAX RATE OF 55 ML PER HOUR. CHECK RESIDUALS EVERY 4 HOURS, HOLD FOR 2 HOURS IF >250 ML. QUALIFIES MODERATELY MALNOURISHED IN THE CONTEXT OF CHRONIC ILLNESS. FOLLOW FOR PO INTAKE, TUBE FEED TOLERANCE, AND LABS. SEE CLINICAL NUTRITION ASSESSMENT 09/24/23.
[2023-09-24 14:52] VITALS: BP 120/57; PULSE 86; RESP 16; TEMP 36.3; O2SAT 95
--- NOTE | 2023-09-24 14:59 | MHC.CM.PN ---
IMM 09/24/23, EMR REVIEWED PT W/EXTENSIVE THROAT CA, RIB FX/COMPRESSION FX, PER PT SHE ARRIVED FROM [place] A FEW DAYS AGO, PT HAS BEEN IN [place] FOR 3-4 YRS, AND RECEIVED FX'S AFTER FALLING AT HOSPITAL IN [place] WHO TOLD PT THERE WAS NOTHING MORE THEY COULD DO FOR HER CA, PT HAS A CANE/WALKER AT [facility], NO SERVICES AND NO PCP, PT WAS A PT OF MADELIN VARNER AT [facility] BEFORE SHE MOVED BACK TO [place]. PT EDUCATED ON AND COMPLETED A HCP NAMING HER STR [facility] A BRASWELLENDEZ [phone] HER H[facility] W/NO ALTERNATE CHOSEN, COPY UPLOADED TO [facility] AND PLACED IN CHART, LUIS A AT BEDSIDE AND WAS GIVEN PT'S COPIES. PT'S DTR LU[facility] A REPORTS CONCERN ABOUT BEING ABLE TO CARE FOR PT AND HAVE PT LIVE W/HER SHE IS ON HOUSING, HOWEVER PT DOES NOT HAVE MH FOR [facility] CARE AND PT WILL NOT BE ABLE TO GO TO STR IF RECEIVING CA TX EVEN IF PALLIATIVE RADIATION. REFERRAL TO FS TO DETERMINE IF PT'S MH CAN BE REINSTATED.
[2023-09-24] MEDS: vancomycin HCL 750 MG in 0.9 % Sodium Chloride 250 ML 265 MG IV (15:20)
[2023-09-24 16:10] LABS: Glucose, Whole Blood 176 mg/dL (60-115)
--- NOTE | 2023-09-24 16:11 | W.PM.IDCN ---
History of Present Illness Data of Consult Service Date: 09/24/23 Requesting physician: Kelly Worthington Primary Care Provider: Unknown Physician HPI Reason for consult: leukocytosis,HIV She presents with weakness and inability to take po. There also was concern over Gtube infection ?cellulitis but area looks dark only. She has growing malignancy left jaw and has not received radiation or chemotherapy or cancer care. She has seen [facility] in the past. She has lived in [place] most recently. She has low back pain as well. Review of Systems Review of Systems: Yes all other systems are reviewed and are negative ENT: Reports neck mass PMFSH Past Medical History Medical History (Updated 09/24/23 @ 16:29 by Luz Covarrubias MD) Leukocytosis Hypercalcemia Dysphagia HLD (hyperlipidemia) HTN (hypertension) HIV (human immunodeficiency virus infection) Type 2 diabetes mellitus Cancer of head and neck Family History Family history: reviewed and not pertinent Social History Social History Household Members: None Housing: Apartment Do you presently have visiting nurse or other home services: No Patient Tobacco Use Status: Former Tobacco user service: No Meds Allergies Allergy/AdvReac Type Severity Reaction Status Date / Time No Known Allergies Allergy Verified 09/23/23 12:09 [No Known Allergies*] Active Medications: Current Medications Acetaminophen (Acetaminophen 325 Mg Tablet) 650 mg G-TUBE Q6H PRN PRN Reason: Pain, Mild (Pain Scale 1-3) Atorvastatin Calcium (Atorvastatin Calcium 40 Mg Tablet) 40 mg PO DAILY [facility] Last Admin: 09/24/23 07:42 Dose: 40 mg Bictegravir/Emtricitabine/Tenofovir (Bictegrav/Emtricit/Tenofov Ala Tablet) 1 tab PO DAILY [facility] Last Admin: 09/24/23 07:42 Dose: 1 tab Fenofibrate (Fenofibrate 160 Mg Tablet) 160 mg PO DAILY [facility] Last Admin: 09/24/23 07:42 Dose: 160 mg Glucose (Glucose Gel 15 Gm Gel..Gram.) 15 gm PO Q15M PRN; Protocol PRN Reason: per Hypoglycemia Standing Ord. Heparin Sodium (Porcine) (Heparin Sodium,Porcine 5,000 Unit/Ml Vial) 5,000 unit SUBCUT Q12H [facility] Last Admin: 09/24/23 07:42 Dose: 5,000 unit Hydromorphone HCl (Hydromorphone Hcl 0.5 Mg/0.5 Ml Syringe) 0.5 mg IVPUSH Q3H PRN; Protocol PRN Reason: Pain, Severe (Pain Scale 7-10) Last Admin: 09/24/23 12:45 Dose: 0.5 mg Piperacillin Sod/Tazobactam (Sod 2.25 gm/ Sodium Chloride) 50 mls @ 100 mls/hr IV Q6H [facility] Last Infusion: 09/24/23 15:10 Dose: Infused Dextrose (D10) 250 mls @ 750 mls/hr IV Q15M PRN; Protocol PRN Reason: per Hypoglycemia Standing Ord. Vancomycin HCl 750 mg/ Sodium (Chloride) 265 mls @ 265 mls/hr IV Q24H [facility] Last Admin: 09/24/23 15:20 Dose: 265 mls/hr Potassium Chloride/Sodium Chloride (Kcl 20 Meq In 0.9 % Sodium Chl) 20 meq in 1,000 mls @ 100 mls/hr IVCONT .Q10H [facility] Last Admin: 09/24/23 11:23 Dose: 100 mls/hr Insulin Glargine (Insulin Glargine,Hum.Rec.Anlog 100 Unit/Ml 10 Ml Vial) 8 unit SUBCUT BEDTIME [facility] Last Admin: 09/23/23 21:14 Dose: 8 unit Insulin Human Lispro (Insulin Lispro 100 Unit/Ml 3 Ml Vial) 0 unit SUBCUT QIDACHS [facility]; Protocol Last Admin: 09/24/23 11:49 Dose: 2 unit Losartan Potassium (Losartan Potassium 50 Mg Tablet) 100 mg PO DAILY [facility]; Protocol Last Admin: 09/24/23 07:42 Dose: 100 mg Magnesium Hydroxide (Milk Of Magnesia 30 Ml Oral.Susp) 30 ml G-TUBE DAILY PRN PRN Reason: Constipation Omeprazole (Omeprazole 40 Mg Capsule.Dr) 40 mg PO DAILY@0630 [facility] Last Admin: 09/24/23 06:05 Dose: 40 mg Ondansetron HCl (Ondansetron Hcl 4 Mg/2 Ml Vial) 4 mg IVPUSH Q8H PRN PRN Reason: Nausea and Vomiting Oxycodone HCl (Oxycodone Hcl Immed Release 5 Mg Tablet) 5 mg PO Q6H PRN PRN Reason: Pain, Moderate(Pain Scale 4-6) Last Admin: 09/24/23 05:03 Dose: 5 mg Pharmacy Consult (Consult Rx Vancomycin Dosing) 1 each MISCELLANE DAILY PRN PRN Reason: Consult order Sodium Chloride (0.9 % Sodium Chloride Flush 3 Ml Syringe) 3 ml IVFLUSH QSHIFT [facility] Last Admin: 09/24/23 14:46 Dose: Not Given Sodium Hypochlorite (Sodium Hypochlorite 0.125% 473 Ml Solution) 1 appl TOPICAL DAILY [facility] Last Admin: 09/24/23 11:50 Dose: 1 appl Home Medications ?Medication ?Instructions ?Recorded ?Confirmed ?Last Taken ?Type atorvastatin 40 mg tablet 40 mg PO DAILY 09/23/23 09/23/23 Unknown History bictegravir 50 mg-emtricitabine 1 tab PO DAILY 09/23/23 09/23/23 Unknown History 200 mg-tenofovir alafenam 25 mg tablet (Biktarvy) empagliflozin 25 mg-linagliptin 5 1 tab PO QAM 09/23/23 09/23/23 Unknown History mg tablet (Glyxambi) fenofibrate 160 mg tablet 160 mg PO DAILY 09/23/23 09/23/23 Unknown History insulin glargine 100 unit/mL 8 unit subcut BEDTIME 09/23/23 09/23/23 Unknown History subcutaneous solution (Lantus U-100 Insulin) losartan 100 mg tablet 100 mg PO DAILY 09/23/23 09/23/23 Unknown History omeprazole 40 mg capsule,delayed 40 mg PO DAILY 09/23/23 09/23/23 Unknown History release Physical Exam Vital Signs: Vital Signs: Last Vital Signs Temp 97.4 F 09/24/23 14:52 Pulse 86 09/24/23 14:52 Resp 16 09/24/23 14:52 BP 120/57 L 09/24/23 14:52 Pulse Ox 95 09/24/23 14:52 O2 Del Method Room Air 09/24/23 14:52 BMI result Body Mass Index 20.2 Const: General: cooperative HEENT: Other: swelling and maceration left face area Face and sinus: Yes normal facial exam Teeth and gingiva: other (left mass pulling at corner lip) Eyes: General: appearance normal, both eyes and all related structures Pupils: Equal, round and reactive pupils present Resp: Effort & Inspection: normal respiratory effort Cardio: Rate: regular rate Rhythm: regular rhythm GI: Other: G tube clear no infection Palpation (GI): Soft to palpation and nontender : General: Yes no CVA tenderness Back/Spine/Pelvis: Back: no CVA tenderness Skin: General skin exam: no rashes or lesions noted Neuro: General: moves all extremities Cranial nerves: Yes Equal, round and reactive pupils present Extrem: General: Yes normal to inspection Psych: Appearance: grossly normal Results Labs 09/24/23 05:26 09/24/23 05:26 Labs: Short CBC 09/24/23 Range/Units 05:26 WBC 34.5 H* (4.8-10.8) X10*3/uL Hgb 10.3 L (12.0-16.0) g/dl Hct 29.8 L (37.0-47.0) % Plt Count 456 H (160-400) X10*3/uL BMP 09/24/23 05:26 Sodium 141 Potassium 2.9 L* Chloride 105 Carbon Dioxide 25 BUN 12 Creatinine 0.92 Calcium 11.0 H D Assessment and Plan (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 There is no Gtube infection seen HIV infection ,likely poor control since not on meds and not able to take po Would hold antibiotics as leukemoid reaction seen at this time only. Would consider switch from Biktarvy to Triumeq (abacavir 600 mg/dolutegravir 50 mg/lamivudine 300 mg) crushed if cant take po. Check CD4 count and viral load and if CD4 count less than 200 would give po Bactrim DS daily. I gave information to Marysol Nuñez RN at [facility] and patient will set up care with them on discharge.
[2023-09-24 19:11] VITALS: BP 114/54; PULSE 99; RESP 16; TEMP 36.1; O2SAT 92
[2023-09-24 19:20] LABS: Glucose, Whole Blood 160 mg/dL (60-115)
[2023-09-24] MEDS: Insulin Glargine,Hum.rec.anlog 100 UNIT/ML 10 ML VIAL 8 UNIT SUBCUT (19:41)
[2023-09-24 19:46] VITALS: RESP 16
--- NOTE | 2023-09-24 19:50 | PC.NURSE ---
Addendum entered by Yana Mcnulty RN 09/24/23 23:33: 2330; tube feed glucerna increased to 40 mls/hr, no residual Original Note: 193; tube feeding diet, glucerna increased to 30 mls/hr. residual checked 40 mls
[2023-09-25 00:05] VITALS: BP 123/65; RESP 18
[2023-09-25 00:07] VITALS: RESP 18
[2023-09-25] MEDS: HYDROmorphone HCl 0.5 MG/0.5 ML SYRINGE IVPUSH ×3 (00:07→07:45)
[2023-09-25 03:30] VITALS: BP 121/58; PULSE 108; RESP 16; TEMP 36.3; O2SAT 93
[2023-09-25] MEDS: Omeprazole 40 MG CAPSULE.DR PO (05:54)
[2023-09-25] MEDS: oxyCODONE HCl Immed Release 5 MG TABLET PO ×4 (05:55→22:53)
[2023-09-25 06:48] LABS: Creatinine Clr Calc Pharmacy 36.7; Estimated Glomerular Filt Rate > 60
[2023-09-25 07:23] LABS: Absolute CD3 Count 495 cells/uL (840-3060); Absolute CD4 Count 125 cells/uL (490-1740); Absolute CD8 Count 372 cells/uL (180-1170); Absolute Lymphocytes 710 cells/uL (850-3900); CD4 CD8 Ratio 0.34 (0.86-5.00); Percent CD3 Cells 70 % (57-85); Percent CD4 Cells 18 % (30-61); Percent CD8 Cells 52 % (12-42)
[2023-09-25 07:27] VITALS: BP 124/59; PULSE 101; RESP 18; TEMP 36.1; O2SAT 93
[2023-09-25 07:39] LABS: Glucose, Whole Blood 284 mg/dL (60-115)
[2023-09-25 07:44] LABS: Anion Gap 11 (12-20)
[2023-09-25] MEDS: Bictegrav/Emtricit/Tenofov Ala TABLET 1 TAB PO (07:44)
[2023-09-25] MEDS: Insulin Lispro 100 UNIT/ML 3 ML VIAL SUBCUT ×4 (07:44→20:59)
[2023-09-25] MEDS: Atorvastatin Calcium 40 MG TABLET PO (07:45)
[2023-09-25] MEDS: Losartan Potassium 50 MG TABLET 100 MG PO (07:45)
[2023-09-25] MEDS: Heparin Sodium,Porcine 5,000 UNIT/ML VIAL 5000 UNIT SUBCUT ×2 (07:45→19:01)
[2023-09-25] MEDS: Fenofibrate 160 MG TABLET PO (07:45)
[2023-09-25 07:51] LABS: Blood Urea Nitrogen 6 mg/dL (9-16); Carbon Dioxide 24 mmol/L (22-29); Chloride 107 mmol/L (96-108); Glucose Random 294 mg/dL (60-115); Magnesium 1.5 mg/dL (1.6-2.6); Potassium 3.9 mmol/L (3.3-5.1); Sodium 138 mmol/L (135-145)
[2023-09-25 11:12] LABS: Glucose, Whole Blood 171 mg/dL (60-115)
--- NOTE | 2023-09-25 11:22 | HO.PM.IMPN ---
Subjective Subjective Date of Service: 09/25/23 Interval History: Seen and examined this morning Follow-up for concern over infected G-tube, cancer of the jaw No overnight events Review of Systems Review of Systems: Yes all other systems are reviewed and are negative Constitutional Constitutional: Denies fever(s) Physical Exam Vital Signs: Vital Signs: Last Vital Signs Temp 96.9 F 09/25/23 07:27 Pulse 101 H 09/25/23 07:27 Resp 18 09/25/23 07:27 BP 124/59 L 09/25/23 07:27 Pulse Ox 93 09/25/23 07:27 O2 Del Method Room Air 09/25/23 07:27 BMI result Body Mass Index 20.2 Const: Other: Constitutional-awake, alert, does not appear to be in any acute distress HEENT- large ulcerated mass involving left jaw/neck Cardiovascular-mild tachycardia GI abdomen soft, nondistended-feeding tube in place with no surrounding cellulitis Objective Data Active Medications Acetaminophen (Acetaminophen 325 Mg Tablet) 650 mg G-TUBE Q6H PRN PRN Reason: Pain, Mild (Pain Scale 1-3) Atorvastatin Calcium (Atorvastatin Calcium 40 Mg Tablet) 40 mg PO DAILY [facility] Last Admin: 09/25/23 07:45 Dose: 40 mg Documented By: ANDREI Bictegravir/Emtricitabine/Tenofovir (Bictegrav/Emtricit/Tenofov Ala Tablet) 1 tab PO DAILY [facility] Last Admin: 09/25/23 07:44 Dose: 1 tab Documented By: ANDREI Fenofibrate (Fenofibrate 160 Mg Tablet) 160 mg PO DAILY [facility] Last Admin: 09/25/23 07:45 Dose: 160 mg Documented By: ANDREI Glucose (Glucose Gel 15 Gm Gel..Gram.) 15 gm PO Q15M PRN; Protocol PRN Reason: per Hypoglycemia Standing Ord. Heparin Sodium (Porcine) (Heparin Sodium,Porcine 5,000 Unit/Ml Vial) 5,000 unit SUBCUT Q12H [facility] Last Admin: 09/25/23 07:45 Dose: 5,000 unit Documented By: ANDREI Hydromorphone HCl (Hydromorphone Hcl 0.5 Mg/0.5 Ml Syringe) 0.5 mg IVPUSH Q3H PRN; Protocol PRN Reason: Pain, Severe (Pain Scale 7-10) Last Admin: 09/25/23 07:45 Dose: 0.5 mg Documented By: ANDREI Dextrose (D10) 250 mls @ 750 mls/hr IV Q15M PRN; Protocol PRN Reason: per Hypoglycemia Standing Ord. Potassium Chloride/Sodium Chloride (Kcl 20 Meq In 0.9 % Sodium Chl) 20 meq in 1,000 mls @ 100 mls/hr IVCONT .Q10H [facility] Last Infusion: 09/25/23 07:56 Dose: Infused Documented By: ANDREI Magnesium Sulfate (Magnesium Sulfate/H2o) 2 gm in 50 mls @ 25 mls/hr IV ONCE ONE Stop: 09/25/23 13:21 Insulin Glargine (Insulin Glargine,Hum.Rec.Anlog 100 Unit/Ml 10 Ml Vial) 8 unit SUBCUT BEDTIME [facility] Last Admin: 09/24/23 19:41 Dose: 8 unit Documented By: ELOIESASY Insulin Human Lispro (Insulin Lispro 100 Unit/Ml 3 Ml Vial) 0 unit SUBCUT QIDACHS [facility]; Protocol Last Admin: 09/25/23 07:44 Dose: 6 unit Documented By: ANDREI Losartan Potassium (Losartan Potassium 50 Mg Tablet) 100 mg PO DAILY [facility]; Protocol Last Admin: 09/25/23 07:45 Dose: 100 mg Documented By: ANDREI Magnesium Hydroxide (Milk Of Magnesia 30 Ml Oral.Susp) 30 ml G-TUBE DAILY PRN PRN Reason: Constipation Omeprazole (Omeprazole 40 Mg Capsule.Dr) 40 mg PO DAILY@0630 [facility] Last Admin: 09/25/23 05:54 Dose: 40 mg Documented By: BRIAN Ondansetron HCl (Ondansetron Hcl 4 Mg/2 Ml Vial) 4 mg IVPUSH Q8H PRN PRN Reason: Nausea and Vomiting Oxycodone HCl (Oxycodone Hcl Immed Release 5 Mg Tablet) 5 mg PO Q6H PRN PRN Reason: Pain, Moderate(Pain Scale 4-6) Last Admin: 09/25/23 05:55 Dose: 5 mg Documented By: BRIAN Sodium Chloride (0.9 % Sodium Chloride Flush 3 Ml Syringe) 3 ml IVFLUSH QSHIFT [facility] Last Admin: 09/25/23 06:47 Dose: Not Given Documented By: HO.DABA Non-Admin Reason: IV Running Sodium Hypochlorite (Sodium Hypochlorite 0.125% 473 Ml Solution) 1 appl TOPICAL DAILY [facility] Last Admin: 09/25/23 07:35 Dose: Not Given Documented By: DABDave Non-Admin Reason: wound RN states hold Labs 09/24/23 05:26 09/25/23 05:39 Labs: Laboratory Results - last 24 hr 09/23/23 09/24/23 09/24/23 14:48 16:07 19:09 Hold Purple Top Anion Gap Estim Creat Clear Calc Estimated GFR POC Glucose 176 H 160 H Random Glucose Calcium Magnesium Total Lymphocytes 710 L % CD3 Cells 70 Absolute CD3 Count 495 L % CD4 Cells 18 L Absolute CD4 Count 125 L CD4/CD8 Ratio 0.34 L % CD8 Cells 52 H Absolute CD8 Count 372 09/25/23 09/25/23 09/25/23 05:39 06:06 07:25 Hold Purple Top SEE NOTE Anion Gap 11 L Estim Creat Clear Calc 36.7 Estimated GFR > 60 POC Glucose 284 H Random Glucose 294 H Calcium 10.0 D Magnesium 1.5 L Total Lymphocytes % CD3 Cells Absolute CD3 Count % CD4 Cells Absolute CD4 Count CD4/CD8 Ratio % CD8 Cells Absolute CD8 Count 09/25/23 11:03 Hold Purple Top Anion Gap Estim Creat Clear Calc Estimated GFR POC Glucose 171 H Random Glucose Calcium Magnesium Total Lymphocytes % CD3 Cells Absolute CD3 Count % CD4 Cells Absolute CD4 Count CD4/CD8 Ratio % CD8 Cells Absolute CD8 Count Microbiology Microbiology Results: Microbiology 09/23/23 14:48 Blood Culture - Preliminary Blood - Venous No growth after 24 hours. 09/23/23 14:28 Blood Culture - Preliminary Blood - Venous No growth after 24 hours. 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 Hx of surgical removal of Left side mandible CT soft tissue neck shows large soft tissue masses involving mucosal surfaces throughout the head and neck and multiple extra mucosal soft tissue compartments with adenopathy and involvement of the overlying skin surface IV vancomycin and Zosyn stopped per ID, no infection Seen by Oncology, possibility of outpatient biopsy for PD-L1 status for possible immunotherapy not amenable to surgical resection local wound care Initially thought to have infected G-tube site with cellulitis and sepsis Seen by ID, no infection, white count is leukemoid reaction from cancer stop Antibiotics Blood cultures negative times 24 hours Seen by surgery, G-tube noninfected, normal drainage noted nutrition consult for tube feeds> glucerna 55ml/hr, free water 120Q8h , able to take some po pureed. HIV has not taken anti-retroviral therapy for unspecified period of time-days versus weeks On Biktarvy at baseline, ID recommends changed to Triumeq if formulary CD4 count less than 200, we will start daily Bactrim for prophylaxis Hypomagnesemia We will replace IV chronic hypercalcemia likely related to dehydration as well as malignancy acute/subacute rib fractures/L1 compression fracture s/p mechanical fall pain management p.r.n. PT eval DM2 with hyperglycemia Lantus at bedtime ss HTN stable BP not on home bp meds HLD statin Moderate malnutrition. BMI 20.2 Gtube feeds and pureed diet dvt prophylaxis- heparin Attending Dr. Jama full code per patient Requires ongoing inpatient stay for invasive tumor of head/neck requiring expert consultation and in patient with HIV who has been noncompliant with anti-retroviral therapy and is immunocompromised, safe disposition and electrolyte monitoring Quality Stroke Does the patient have a stroke diagnosis?: No VTE Prior VTE?: No VTE Risk Level:: Medical - moderate - high VTE Device Contraindication: Treatment Not Indicated VTE Drug Contraindication: N/A - Med Ordered
[2023-09-25] MEDS: Magnesium Sulfate/H2O 2 GM/50 ML PIGGYBACK IV (12:01)
--- NOTE | 2023-09-25 13:46 | MHC.CM.PN ---
CM MET W/PT ANDSTR/SON AT BEDSIDE, PT APPEARS TO BE MORE ABLE TO ASSIST FS W/MH TO THEN PT'S DTR, PT AND FAMILY AWARE THAT PT WILL NOT BE ABLE TO GET MH FOR LTC WITHOUT 5YRS OF BANK STATEMENTS/TITLE OF CAR/SOC SEC STATEMENT THEREFORE FS IS STARTING W/MH STANDARD APPLICATION. PT REPORTS WHEN SHE DC'S TO DTRS SHE WILL PRINT OUT DOCUMENTS AND THEY WILL HAVE A FAMILY MEMBER TAKE A PIC OF TITLE AND SEND TO PT OR DTR AND LOOK FOR SS STATEMENT. PT INSTRUCTED TO CONTACT [facility] TO DISENROLL AND TO DETERMINE IF THEY CAN HELP HER CHANGE TO REGULAR MEDICARE, CM INSTRUCTED PT TO CALL TODAY MEDICARE WILL NOT GIVE INFO/SPEAK TO CM. CM CONTACTED [facility] AND SPOKE TO PHARMACIST WHO REPORTS ONCE PT'S MH IS SHOWING PENDING SHE CAN GET MEDICATIONS FILLED, PT WILL NEED TO GO TO [facility] AND MEET W/SOMEONE FROM MANAGED CARE AND THEN CAN DISTRICT SUPERINTENDENT HER MEDICATIONS. FRANSICO DID CONTACT CA AT [facility] WHO REPORTED THEY DO HAVE A FEMALE BED BUT ARE NOT ABLE TO ACCOMMODATE PALLIATIVE/HOSPICE PTS. FRANSICO HAS CONTACTED DIETARY AND THEY WILL TRANSITION PT TO BOLUS FEEDS.
[2023-09-25] MEDS: 0.9 % Sodium Chloride Flush 3 ML SYRINGE IVFLUSH (14:44)
[2023-09-25 15:55] VITALS: BP 145/62; PULSE 99; RESP 13; TEMP 36; O2SAT 94
[2023-09-25 16:14] LABS: Glucose, Whole Blood 258 mg/dL (60-115)
[2023-09-25 19:47] VITALS: BP 143/68; PULSE 99; RESP 13; TEMP 36.4; O2SAT 95
[2023-09-25 20:14] LABS: Glucose, Whole Blood 249 mg/dL (60-115)
[2023-09-25] MEDS: Insulin Glargine,Hum.rec.anlog 100 UNIT/ML 10 ML VIAL 8 UNIT SUBCUT (20:59)
[2023-09-25] MEDS: Docusate Sodium 100 MG CAPSULE PO (20:59)
[2023-09-26] MEDS: 0.9 % Sodium Chloride Flush 3 ML SYRINGE IVFLUSH ×3 (02:41→22:05)
[2023-09-26] MEDS: oxyCODONE HCl Immed Release 5 MG TABLET PO ×2 (02:42→06:34)
[2023-09-26 03:28] VITALS: BP 139/67; PULSE 99; RESP 16; TEMP 36; O2SAT 95
[2023-09-26] MEDS: Omeprazole 40 MG CAPSULE.DR PO (06:34)
[2023-09-26 07:21] LABS: Glucose, Whole Blood 298 mg/dL (60-115)
[2023-09-26 07:30] LABS: Anion Gap 10 (12-20); Blood Urea Nitrogen 5 mg/dL (9-16); Calcium 9.9 mg/dL (8.4-10.2); Carbon Dioxide 28 mmol/L (22-29); Chloride 100 mmol/L (96-108); Creatinine Clr Calc Pharmacy 39.1; Estimated Glomerular Filt Rate > 60; Glucose Random 253 mg/dL (60-115); Magnesium 1.7 mg/dL (1.6-2.6); Sodium 135 mmol/L (135-145)
[2023-09-26 07:36] LABS: Potassium 2.7 mmol/L (3.3-5.1)
[2023-09-26 07:38] VITALS: BP 172/83; PULSE 56; RESP 16; TEMP 36; O2SAT 94
[2023-09-26 07:54] VITALS: BP 147/80
[2023-09-26] MEDS: Potassium Chloride Packet 20 MEQ PACKET 40 MEQ PO ×2 (08:03→21:59)
[2023-09-26] MEDS: Potassium Chloride/H20 10 MEQ/100 ML PIGGYBACK 100 MEQ IV ×2 (08:07→09:14)
[2023-09-26] MEDS: Heparin Sodium,Porcine 5,000 UNIT/ML VIAL 5000 UNIT SUBCUT ×2 (08:32→20:01)
[2023-09-26 08:33] VITALS: BP 147/80
[2023-09-26] MEDS: Fenofibrate 160 MG TABLET PO (08:33)
[2023-09-26] MEDS: Bictegrav/Emtricit/Tenofov Ala TABLET 1 TAB PO (08:33)
[2023-09-26] MEDS: polyethylene glycoL 3350 17 GM POWD.PACK PO (08:33)
[2023-09-26] MEDS: Sulfamethox/Trimeth 800/160 TABLET 1 TAB PO (08:33)
[2023-09-26] MEDS: Atorvastatin Calcium 40 MG TABLET PO (08:33)
[2023-09-26] MEDS: Losartan Potassium 50 MG TABLET 100 MG PO (08:33)
[2023-09-26] MEDS: Insulin Lispro 100 UNIT/ML 3 ML VIAL SUBCUT ×4 (08:33→22:04)
[2023-09-26] MEDS: HYDROmorphone HCl 0.5 MG/0.5 ML SYRINGE IVPUSH ×4 (10:19→22:01)
[2023-09-26 11:20] LABS: Glucose, Whole Blood 249 mg/dL (60-115)
--- NOTE | 2023-09-26 11:43 | MHC.CLN ---
F/U QUALIFIES MODERATELY MALNOURISHED IN THE CONTEXT OF CHRONIC ILLNESS SEE CLINICAL NUTRITION ASSESSMENT 09/24/23 DIET RX:PUREE CONSISTENCY PO INTAKE VARIABLE RECEIVED G-TUBE APPROX 2 WEEKS AGO PT ALSO RECEIVING PEG TUBE FEEDINGS GLUCERNA AT MAX GOAL RATE 55 ML PER HOUR WITH 120 ML FREE WATER FLUSHES Q 8 HOURS PROVIDES 1320 KCALS (32.4 KCALS/KG), 55 G PROTEIN (1.35 G/KG), 1469 ML FREE WATER FROM FORMULA AND FLUSH (36 ML/KG) CM REQUESTED BOLUS FEEDING ORDER FOR POTENTIAL DISCHARGE: RECOMMEND GLUCERNA 1.0 CARTONS (OR EQUIVALENT FORMULA) BOLUS 1 CARTON (237ML) X6 PER DAY TO PROVIDE 1422KCALS (35KCALS/KG), 59G PROTEIN (1.45G/KG), 1213ML FREE WATER FROM FORMULA CONTINUE 120ML FREE WATER FLUSHES TID TO PROVIDE 1573ML TOTAL WATER FROM FORMULA AND FLUSHES (38.5ML/KG) FOLLOW FOR PO INTAKE, TUBE FEED TOLERANCE, AND LABS
[2023-09-26 15:00] VITALS: BP 137/72; PULSE 95; RESP 16; TEMP 36.3; O2SAT 96
--- NOTE | 2023-09-26 15:52 | P.PNGS_ITS ---
Subjective Subjective Date of Service: 09/26/23 Interval history: No new issues or c/o's Physical Exam 2 Vital Signs: Vital Signs: Last Vital Signs Temp 97.3 F 09/26/23 15:00 Pulse 95 09/26/23 15:00 Resp 16 09/26/23 15:00 BP 137/72 09/26/23 15:00 Pulse Ox 96 09/26/23 15:00 O2 Del Method Room Air 09/26/23 15:00 BMI result Body Mass Index 20.2 GI: Other: G-tube site c/d/i with resolved erythema.Feeding tube leakage around tube Incision healing uneventfully Objective Data Active Medications Acetaminophen (Acetaminophen 325 Mg Tablet) 650 mg G-TUBE Q6H PRN PRN Reason: Pain, Mild (Pain Scale 1-3) Atorvastatin Calcium (Atorvastatin Calcium 40 Mg Tablet) 40 mg PO DAILY [facility] Last Admin: 09/26/23 08:33 Dose: 40 mg Documented By: TG Bictegravir/Emtricitabine/Tenofovir (Bictegrav/Emtricit/Tenofov Ala Tablet) 1 tab PO DAILY [facility] Last Admin: 09/26/23 08:33 Dose: 1 tab Documented By: GT Docusate Sodium (Docusate Sodium 100 Mg Capsule) 100 mg PO BEDTIME [facility] Last Admin: 09/25/23 20:59 Dose: 100 mg Documented By: RAFAEL Fenofibrate (Fenofibrate 160 Mg Tablet) 160 mg PO DAILY [facility] Last Admin: 09/26/23 08:33 Dose: 160 mg Documented By: GT Glucose (Glucose Gel 15 Gm Gel..Gram.) 15 gm PO Q15M PRN; Protocol PRN Reason: per Hypoglycemia Standing Ord. Heparin Sodium (Porcine) (Heparin Sodium,Porcine 5,000 Unit/Ml Vial) 5,000 unit SUBCUT Q12H [facility] Last Admin: 09/26/23 08:32 Dose: 5,000 unit Documented By: GT Hydromorphone HCl (Hydromorphone Hcl 0.5 Mg/0.5 Ml Syringe) 0.5 mg IVPUSH Q3H PRN; Protocol PRN Reason: Pain, Severe (Pain Scale 7-10) Last Admin: 09/26/23 14:05 Dose: 0.5 mg Documented By: GT Dextrose (D10) 250 mls @ 750 mls/hr IV Q15M PRN; Protocol PRN Reason: per Hypoglycemia Standing Ord. Insulin Glargine (Insulin Glargine,Hum.Rec.Anlog 100 Unit/Ml 10 Ml Vial) 8 unit SUBCUT BEDTIME [facility] Last Admin: 09/25/23 20:59 Dose: 8 unit Documented By: RAFAEL Insulin Human Lispro (Insulin Lispro 100 Unit/Ml 3 Ml Vial) 0 unit SUBCUT QIDACHS [facility]; Protocol Last Admin: 09/26/23 11:55 Dose: 4 unit Documented By: GT Losartan Potassium (Losartan Potassium 50 Mg Tablet) 100 mg PO DAILY [facility]; Protocol Last Admin: 09/26/23 08:33 Dose: 100 mg Documented By: GT Magnesium Hydroxide (Milk Of Magnesia 30 Ml Oral.Susp) 30 ml G-TUBE DAILY PRN PRN Reason: Constipation Omeprazole (Omeprazole 40 Mg Capsule.Dr) 40 mg PO DAILY@0630 [facility] Last Admin: 09/26/23 06:34 Dose: 40 mg Documented By: RAFAEL Ondansetron HCl (Ondansetron Hcl 4 Mg/2 Ml Vial) 4 mg IVPUSH Q8H PRN PRN Reason: Nausea and Vomiting Oxycodone HCl (Oxycodone Hcl Immed Release 5 Mg Tablet) 5 mg PO Q4H PRN PRN Reason: Pain, Moderate(Pain Scale 4-6) Last Admin: 09/26/23 06:34 Dose: 5 mg Documented By: RAFAEL Polyethylene Glycol (Polyethylene Glycol 3350 17 Gm Powd.Pack) 17 gm PO DAILY [facility] Last Admin: 09/26/23 08:33 Dose: 17 gm Documented By: GT Potassium Chloride (Potassium Chloride Packet 20 Meq Packet) 40 meq PO BID [facility] Stop: 09/26/23 21:01 Last Admin: 09/26/23 08:03 Dose: 40 meq Documented By: GT Sodium Chloride (0.9 % Sodium Chloride Flush 3 Ml Syringe) 3 ml IVFLUSH QSHIFT [facility] Last Admin: 09/26/23 08:42 Dose: Not Given Documented By: GT Non-Admin Reason: IV Running Sodium Hypochlorite (Sodium Hypochlorite 0.125% 473 Ml Solution) 1 appl TOPICAL DAILY [facility] Last Admin: 09/26/23 08:44 Dose: Not Given Documented By: GT Non-Admin Reason: per wound care Trimethoprim/Sulfamethoxazole (Sulfamethox/Trimeth 800/160 Tablet) 1 tab PO DAILY [facility] Last Admin: 09/26/23 08:33 Dose: 1 tab Documented By: GT Labs 09/24/23 05:26 09/26/23 05:50 Labs: Laboratory Results - last 24 hr 09/25/23 09/25/23 09/26/23 16:10 19:51 05:50 Anion Gap 10 L Estim Creat Clear Calc 39.1 Estimated GFR > 60 POC Glucose 258 H 249 H Random Glucose 253 H Calcium 9.9 Magnesium 1.7 09/26/23 09/26/23 07:18 11:09 Anion Gap Estim Creat Clear Calc Estimated GFR POC Glucose 298 H 249 H Random Glucose Calcium Magnesium Microbiology Microbiology Results: Microbiology 09/23/23 14:48 Blood Culture - Preliminary Blood - Venous No growth after 48 hours. 09/23/23 14:28 Blood Culture - Preliminary Blood - Venous No growth after 48 hours. 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 Quality Stroke Does the patient have a stroke diagnosis?: No VTE Prior VTE?: No VTE Risk Level:: Medical - moderate - high VTE Device Contraindication: Treatment Not Indicated VTE Drug Contraindication: N/A - Med Ordered
[2023-09-26 16:19] LABS: Glucose, Whole Blood 298 mg/dL (60-115)
--- NOTE | 2023-09-26 16:25 | HO.PM.IMPN ---
Subjective Subjective Date of Service: 09/26/23 Interval History: Seen and examined this morning Follow-up for cancer of the mouth/jaw Potassium low this morning No overnight events Review of Systems Review of Systems: Yes all other systems are reviewed and are negative Constitutional Constitutional: Denies fever(s) Physical Exam Vital Signs: Vital Signs: Last Vital Signs Temp 97.3 F 09/26/23 15:00 Pulse 95 09/26/23 15:00 Resp 16 09/26/23 15:00 BP 137/72 09/26/23 15:00 Pulse Ox 96 09/26/23 15:00 O2 Del Method Room Air 09/26/23 15:00 BMI result Body Mass Index 20.2 Const: Other: Constitutional-awake, alert, does not appear to be in any acute distress HEENT- large ulcerated mass involving left jaw/neck Cardiovascular-mild tachycardia GI abdomen soft, nondistended-feeding tube in place with no surrounding cellulitis MS - able to move all 4 extremities spontaneously Objective Data Active Medications Acetaminophen (Acetaminophen 325 Mg Tablet) 650 mg G-TUBE Q6H PRN PRN Reason: Pain, Mild (Pain Scale 1-3) Atorvastatin Calcium (Atorvastatin Calcium 40 Mg Tablet) 40 mg PO DAILY [facility] Last Admin: 09/26/23 08:33 Dose: 40 mg Documented By: GT Bictegravir/Emtricitabine/Tenofovir (Bictegrav/Emtricit/Tenofov Ala Tablet) 1 tab PO DAILY [facility] Last Admin: 09/26/23 08:33 Dose: 1 tab Documented By: GT Docusate Sodium (Docusate Sodium 100 Mg Capsule) 100 mg PO BEDTIME [facility] Last Admin: 09/25/23 20:59 Dose: 100 mg Documented By: RAFAEL Fenofibrate (Fenofibrate 160 Mg Tablet) 160 mg PO DAILY [facility] Last Admin: 09/26/23 08:33 Dose: 160 mg Documented By: GT Glucose (Glucose Gel 15 Gm Gel..Gram.) 15 gm PO Q15M PRN; Protocol PRN Reason: per Hypoglycemia Standing Ord. Heparin Sodium (Porcine) (Heparin Sodium,Porcine 5,000 Unit/Ml Vial) 5,000 unit SUBCUT Q12H [facility] Last Admin: 09/26/23 08:32 Dose: 5,000 unit Documented By: GT Hydromorphone HCl (Hydromorphone Hcl 0.5 Mg/0.5 Ml Syringe) 0.5 mg IVPUSH Q3H PRN; Protocol PRN Reason: Pain, Severe (Pain Scale 7-10) Last Admin: 09/26/23 14:05 Dose: 0.5 mg Documented By: GT Dextrose (D10) 250 mls @ 750 mls/hr IV Q15M PRN; Protocol PRN Reason: per Hypoglycemia Standing Ord. Insulin Glargine (Insulin Glargine,Hum.Rec.Anlog 100 Unit/Ml 10 Ml Vial) 8 unit SUBCUT BEDTIME [facility] Last Admin: 09/25/23 20:59 Dose: 8 unit Documented By: RAFAEL Insulin Human Lispro (Insulin Lispro 100 Unit/Ml 3 Ml Vial) 0 unit SUBCUT QIDACHS [facility]; Protocol Last Admin: 09/26/23 11:55 Dose: 4 unit Documented By: GT Losartan Potassium (Losartan Potassium 50 Mg Tablet) 100 mg PO DAILY [facility]; Protocol Last Admin: 09/26/23 08:33 Dose: 100 mg Documented By: GT Magnesium Hydroxide (Milk Of Magnesia 30 Ml Oral.Susp) 30 ml G-TUBE DAILY PRN PRN Reason: Constipation Omeprazole (Omeprazole 40 Mg Capsule.Dr) 40 mg PO DAILY@0630 [facility] Last Admin: 09/26/23 06:34 Dose: 40 mg Documented By: RAFAEL Ondansetron HCl (Ondansetron Hcl 4 Mg/2 Ml Vial) 4 mg IVPUSH Q8H PRN PRN Reason: Nausea and Vomiting Oxycodone HCl (Oxycodone Hcl Immed Release 5 Mg Tablet) 5 mg PO Q4H PRN PRN Reason: Pain, Moderate(Pain Scale 4-6) Last Admin: 09/26/23 06:34 Dose: 5 mg Documented By: RAFAEL Polyethylene Glycol (Polyethylene Glycol 3350 17 Gm Powd.Pack) 17 gm PO DAILY [facility] Last Admin: 09/26/23 08:33 Dose: 17 gm Documented By: GT Potassium Chloride (Potassium Chloride Packet 20 Meq Packet) 40 meq PO BID [facility] Stop: 09/26/23 21:01 Last Admin: 09/26/23 08:03 Dose: 40 meq Documented By: GT Sodium Chloride (0.9 % Sodium Chloride Flush 3 Ml Syringe) 3 ml IVFLUSH QSHIFT [facility] Last Admin: 09/26/23 08:42 Dose: Not Given Documented By: GT Non-Admin Reason: IV Running Sodium Hypochlorite (Sodium Hypochlorite 0.125% 473 Ml Solution) 1 appl TOPICAL DAILY [facility] Last Admin: 09/26/23 08:44 Dose: Not Given Documented By: GT Non-Admin Reason: per wound care Trimethoprim/Sulfamethoxazole (Sulfamethox/Trimeth 800/160 Tablet) 1 tab PO DAILY [facility] Last Admin: 09/26/23 08:33 Dose: 1 tab Documented By: GT Labs 09/24/23 05:26 09/26/23 05:50 Labs: Laboratory Results - last 24 hr 09/25/23 09/26/23 09/26/23 19:51 05:50 07:18 Anion Gap 10 L Estim Creat Clear Calc 39.1 Estimated GFR > 60 POC Glucose 249 H 298 H Random Glucose 253 H Calcium 9.9 Magnesium 1.7 09/26/23 09/26/23 11:09 16:05 Anion Gap Estim Creat Clear Calc Estimated GFR POC Glucose 249 H 298 H Random Glucose Calcium Magnesium Microbiology Microbiology Results: Microbiology 09/23/23 14:48 Blood Culture - Preliminary Blood - Venous No growth after 48 hours. 09/23/23 14:28 Blood Culture - Preliminary Blood - Venous No growth after 48 hours. 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 Hx of surgical removal of Left side mandible CT soft tissue neck shows large soft tissue masses involving mucosal surfaces throughout the head and neck and multiple extra mucosal soft tissue compartments with adenopathy and involvement of the overlying skin surface IV vancomycin and Zosyn stopped per ID, no infection Seen by Oncology, for advanced oropharyngeal cancer, this is outside the scope for agency, patient will need referral to [facility] and radiation oncology consultation upon discharge not amenable to surgical resection local wound care Initially thought to have infected G-tube site with cellulitis and sepsis Seen by ID, no infection, white count is leukemoid reaction from cancer stop Antibiotics Blood cultures negative times 24 hours Seen by surgery, G-tube not infected, normal drainage noted nutrition consult for tube feeds> glucerna 55ml/hr, free water 120Q8h , able to take some po pureed. (Bolus feed recommendations documented by nutrition for discharge, see note for details) HIV has not taken anti-retroviral therapy for unspecified period of time-days versus weeks prior to admission On Biktarvy at baseline, ID recommends changed to Triumeq as patient unable to take pills whole - discussed with pharmacy, they will place order CD4 count less than 200, daily Bactrim for prophylaxis Hypomagnesemia improved with replacement chronic hypercalcemia likely related to dehydration as well as malignancy acute/subacute rib fractures/L1 compression fracture s/p mechanical fall pain management p.r.n. DM2 with hyperglycemia Lantus at bedtime ss HTN stable BP not on home bp meds HLD statin Moderate malnutrition. BMI 20.2 Gtube feeds and pureed diet dvt prophylaxis- heparin Attending Dr. Jama full code per patient dispo - likely home with family as no pcp; CM following Requires ongoing inpatient stay for invasive tumor of head/neck requiring expert consultation and in patient with HIV who has been noncompliant with anti-retroviral therapy and is immunocompromised, safe disposition and electrolyte monitoring Quality Stroke Does the patient have a stroke diagnosis?: No VTE Prior VTE?: No VTE Risk Level:: Medical - moderate - high VTE Device Contraindication: Treatment Not Indicated VTE Drug Contraindication: N/A - Med Ordered
[2023-09-26 17:21] LABS: Potassium 4.4 mmol/L (3.3-5.1)
[2023-09-26 19:20] VITALS: BP 136/74; PULSE 100; RESP 16; TEMP 36.6; O2SAT 96
[2023-09-26 20:25] LABS: Glucose, Whole Blood 325 mg/dL (60-115)
[2023-09-26] MEDS: Docusate Sodium 100 MG CAPSULE PO (21:59)
[2023-09-26] MEDS: Insulin Glargine,Hum.rec.anlog 100 UNIT/ML 10 ML VIAL 8 UNIT SUBCUT (22:05)
--- NOTE | 2023-09-26 22:19 | PC.NURSE ---
NOTED TUBE FEED around the g-tube and when flushed liquid came out around the tube feed
[2023-09-27 02:31] VITALS: BP 133/61; PULSE 97; RESP 18; TEMP 36.4; O2SAT 96
[2023-09-27] MEDS: HYDROmorphone HCl 0.5 MG/0.5 ML SYRINGE IVPUSH ×4 (03:41→21:17)
[2023-09-27 05:51] LABS: Basophils Absolute Auto 0.1 X10*3/uL (0.0-0.2); Basophils Percent Auto 0.2 % (0-2); Eosinophils Absolute Auto 0.3 X10*3/uL (0.0-0.4); Eosinophils Percent Auto 1.3 % (0-4); Hematocrit 30.4 % (37.0-47.0); Hemoglobin 10.2 g/dl (12.0-16.0); Imm Gran Abs Auto 0.28 X10*3/uL (0.00-0.03); Imm Gran Pct Auto 1.1 % (0.0-0.4); Lymphocytes Absolute Auto 0.7 X10*3/uL (1.2-4.9); Lymphocytes Percent Auto 2.8 % (20-40); MANUAL DIFF FLAG SCAN; Mean Corpuscular HGB Conc 33.6 g/dl (31.0-35.0); Mean Corpuscular Hemoglobin 30.7 pg (27.0-33.0); Mean Corpuscular Volume 91.6 fL (80.0-98.0); Mean Platelet Volume 10.5 fL (9.4-12.3); Monocytes Absolute Auto 1.1 X10*3/uL (0.1-1.2); Monocytes Percent Auto 4.3 % (2-11); Neutrophils Absolute Auto 23.2 x10*3/uL (2.0-8.3); Neutrophils Percent Auto 90.3 % (45-73); Platelet Count 435 X10*3/uL (160-400); Red Blood Count 3.32 X10*6/uL (4.20-5.50); SCAN SMEAR FLAG 1; White Blood Count 25.7 X10*3/uL (4.8-10.8)
[2023-09-27 06:03] LABS: Anion Gap 13 (12-20); Blood Urea Nitrogen 7 mg/dL (9-16); Calcium 10.9 mg/dL (8.4-10.2); Carbon Dioxide 24 mmol/L (22-29); Chloride 99 mmol/L (96-108); Creatinine Clr Calc Pharmacy 31.5; Estimated Glomerular Filt Rate 56; Glucose Random 304 mg/dL (60-115); Potassium 4.3 mmol/L (3.3-5.1); Sodium 132 mmol/L (135-145)
[2023-09-27] MEDS: oxyCODONE HCl Immed Release 5 MG TABLET PO ×2 (06:12→10:39)
[2023-09-27] MEDS: Omeprazole 40 MG CAPSULE.DR PO (06:12)
[2023-09-27 06:24] LABS: SLIDE REVIEW VERIFIED
[2023-09-27 07:40] VITALS: BP 139/65; PULSE 93; RESP 16; TEMP 36.3; O2SAT 97
[2023-09-27 08:00] LABS: Glucose, Whole Blood 385 mg/dL (60-115)
--- NOTE | 2023-09-27 08:33 | HO.PM.IMPN ---
Subjective Subjective Date of Service: 09/27/23 Interval History: seen and examined no new complaints Review of Systems Negative except HPI/interval history. Physical Exam Vital Signs: Vital Signs: Last Vital Signs Temp 97.4 F 09/27/23 07:40 Pulse 93 09/27/23 07:40 Resp 16 09/27/23 07:40 BP 139/65 09/27/23 07:40 Pulse Ox 97 09/27/23 07:40 O2 Del Method Room Air 09/27/23 07:40 O2 Flow Rate 96 09/27/23 07:40 BMI result Body Mass Index 20.2 Const: Other: General - no acute distress, appears comfortable Cardiovascular - regular rate and rhythm, S1-S2 Lungs - normal respiratory effort, clear to auscultation bilaterally, no wheezing Abdomen - soft, nontender, no rebound or guarding Extremities - no edema bilaterally Neuro - awake and alert, no focal deficits Objective Data Active Medications Acetaminophen (Acetaminophen 325 Mg Tablet) 650 mg G-TUBE Q6H PRN PRN Reason: Pain, Mild (Pain Scale 1-3) Atorvastatin Calcium (Atorvastatin Calcium 40 Mg Tablet) 40 mg PO DAILY [facility] Last Admin: 09/26/23 08:33 Dose: 40 mg Documented By: GT Bictegravir/Emtricitabine/Tenofovir (Bictegrav/Emtricit/Tenofov Ala Tablet) 1 tab PO DAILY [facility] Docusate Sodium (Docusate Sodium 100 Mg Capsule) 100 mg PO BEDTIME [facility] Last Admin: 09/26/23 21:59 Dose: 100 mg Documented By: ZEYAD Fenofibrate (Fenofibrate 160 Mg Tablet) 160 mg PO DAILY [facility] Last Admin: 09/26/23 08:33 Dose: 160 mg Documented By: GT Glucose (Glucose Gel 15 Gm Gel..Gram.) 15 gm PO Q15M PRN; Protocol PRN Reason: per Hypoglycemia Standing Ord. Heparin Sodium (Porcine) (Heparin Sodium,Porcine 5,000 Unit/Ml Vial) 5,000 unit SUBCUT Q12H [facility] Last Admin: 09/26/23 20:01 Dose: 5,000 unit Documented By: ZEYAD Hydromorphone HCl (Hydromorphone Hcl 0.5 Mg/0.5 Ml Syringe) 0.5 mg IVPUSH Q3H PRN; Protocol PRN Reason: Pain, Severe (Pain Scale 7-10) Last Admin: 09/27/23 03:41 Dose: 0.5 mg Documented By: ZEYAD Dextrose (D10) 250 mls @ 750 mls/hr IV Q15M PRN; Protocol PRN Reason: per Hypoglycemia Standing Ord. Insulin Glargine (Insulin Glargine,Hum.Rec.Anlog 100 Unit/Ml 10 Ml Vial) 8 unit SUBCUT BEDTIME [facility] Last Admin: 09/26/23 22:05 Dose: 8 unit Documented By: ZEYAD Insulin Human Lispro (Insulin Lispro 100 Unit/Ml 3 Ml Vial) 0 unit SUBCUT QIDACHS [facility]; Protocol Last Admin: 09/26/23 22:04 Dose: 8 unit Documented By: ZEYAD Losartan Potassium (Losartan Potassium 50 Mg Tablet) 100 mg PO DAILY [facility]; Protocol Last Admin: 09/26/23 08:33 Dose: 100 mg Documented By: GT Magnesium Hydroxide (Milk Of Magnesia 30 Ml Oral.Susp) 30 ml G-TUBE DAILY PRN PRN Reason: Constipation Omeprazole (Omeprazole 40 Mg Capsule.Dr) 40 mg PO DAILY@0630 [facility] Last Admin: 09/27/23 06:12 Dose: 40 mg Documented By: ZEYAD Ondansetron HCl (Ondansetron Hcl 4 Mg/2 Ml Vial) 4 mg IVPUSH Q8H PRN PRN Reason: Nausea and Vomiting Oxycodone HCl (Oxycodone Hcl Immed Release 5 Mg Tablet) 5 mg PO Q4H PRN PRN Reason: Pain, Moderate(Pain Scale 4-6) Last Admin: 09/27/23 06:12 Dose: 5 mg Documented By: ZEYAD Polyethylene Glycol (Polyethylene Glycol 3350 17 Gm Powd.Pack) 17 gm PO DAILY [facility] Last Admin: 09/26/23 08:33 Dose: 17 gm Documented By: GT Sodium Chloride (0.9 % Sodium Chloride Flush 3 Ml Syringe) 3 ml IVFLUSH QSHIFT [facility] Last Admin: 09/26/23 22:05 Dose: 3 ml Documented By: ZEYAD Sodium Hypochlorite (Sodium Hypochlorite 0.125% 473 Ml Solution) 1 appl TOPICAL DAILY [facility] Last Admin: 09/26/23 08:44 Dose: Not Given Documented By: GT Non-Admin Reason: per wound care Trimethoprim/Sulfamethoxazole (Sulfamethox/Trimeth 800/160 Tablet) 1 tab PO DAILY [facility] Last Admin: 09/26/23 08:33 Dose: 1 tab Documented By: GT Labs 09/27/23 05:15 09/27/23 05:15 Labs: Laboratory Results - last 24 hr 09/26/23 09/26/23 09/26/23 11:09 16:05 20:13 MCV MCH MCHC RDW Plt Count MPV Immature Gran % (Auto) Neut % (Auto) Lymph % (Auto) [place] % (Auto) Eos % (Auto) Baso % (Auto) Lymph # (Auto) [place] # (Auto) Eos # (Auto) Baso # (Auto) Abs Immat Gran (auto) Absolute Neuts (auto) Absolute Nucleated RBC Nucleated RBC % (auto) Smear Tech's Comments Anion Gap Estim Creat Clear Calc Estimated GFR POC Glucose 249 H 298 H 325 H Random Glucose Calcium 09/27/23 09/27/23 05:15 07:43 MCV 91.6 MCH 30.7 MCHC 33.6 RDW 14.0 Plt Count 435 H MPV 10.5 Immature Gran % (Auto) 1.1 H Neut % (Auto) 90.3 H Lymph % (Auto) 2.8 L [place] % (Auto) 4.3 Eos % (Auto) 1.3 Baso % (Auto) 0.2 Lymph # (Auto) 0.7 L [place] # (Auto) 1.1 Eos # (Auto) 0.3 Baso # (Auto) 0.1 Abs Immat Gran (auto) 0.28 H Absolute Neuts (auto) 23.2 H Absolute Nucleated RBC 0.000 Nucleated RBC % (auto) 0.0 Smear Tech's Comments VERIFIED Anion Gap 13 Estim Creat Clear Calc 31.5 Estimated GFR 56 POC Glucose 385 H* Random Glucose 304 H Calcium 10.9 H D Assessment and Plan (1) HIV (human immunodeficiency virus infection): Status: Acute (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 Hx of surgical removal of Left side mandible CT soft tissue neck shows large soft tissue masses involving mucosal surfaces throughout the head and neck and multiple extra mucosal soft tissue compartments with adenopathy and involvement of the overlying skin surface IV vancomycin and Zosyn stopped per ID, no infection Seen by Oncology, for advanced oropharyngeal cancer, this is outside the scope for agency, patient will need referral to [facility] and radiation oncology consultation upon discharge not amenable to surgical resection local wound care Initially thought to have infected G-tube site with cellulitis and sepsis Seen by ID, no infection, white count is leukemoid reaction from cancer stop Antibiotics Blood cultures negative times 24 hours Seen by surgery, G-tube not infected, normal drainage noted nutrition consult for tube feeds> glucerna 55ml/hr, free water 120Q8h , able to take some po pureed. (Bolus feed recommendations documented by nutrition for discharge, see note for details) HIV has not taken anti-retroviral therapy for unspecified period of time-days versus weeks prior to admission On Biktarvy at baseline, ID recommends changed to Triumeq as patient unable to take pills whole - discussed with pharmacy, they will place order CD4 count less than 200, daily Bactrim for prophylaxis Hypomagnesemia improved with replacement chronic hypercalcemia likely related to dehydration as well as malignancy acute/subacute rib fractures/L1 compression fracture s/p mechanical fall pain management p.r.n. DM2 with hyperglycemia Lantus at bedtime ss HTN stable BP not on home bp meds HLD statin Moderate malnutrition. BMI 20.2 Gtube feeds and pureed diet dvt prophylaxis- heparin full code per patient dispo - likely home with family as no pcp; CM following Requires ongoing inpatient stay for invasive tumor of head/neck requiring expert consultation and in patient with HIV who has been noncompliant with anti-retroviral therapy and is immunocompromised, safe disposition and electrolyte monitoring Quality Stroke Does the patient have a stroke diagnosis?: No VTE Prior VTE?: No VTE Risk Level:: Medical - moderate - high VTE Device Contraindication: Treatment Not Indicated VTE Drug Contraindication: N/A - Med Ordered
[2023-09-27] MEDS: Sulfamethox/Trimeth 800/160 TABLET 1 TAB PO (08:38)
[2023-09-27] MEDS: Losartan Potassium 50 MG TABLET 100 MG PO (08:38)
[2023-09-27] MEDS: Atorvastatin Calcium 40 MG TABLET PO (08:39)
[2023-09-27] MEDS: Bictegrav/Emtricit/Tenofov Ala TABLET 1 TAB PO (08:39)
[2023-09-27] MEDS: Fenofibrate 160 MG TABLET PO (08:39)
[2023-09-27] MEDS: polyethylene glycoL 3350 17 GM POWD.PACK PO (08:39)
[2023-09-27] MEDS: Insulin Lispro 100 UNIT/ML 3 ML VIAL SUBCUT ×4 (08:50→21:16)
[2023-09-27] MEDS: Heparin Sodium,Porcine 5,000 UNIT/ML VIAL 5000 UNIT SUBCUT ×2 (08:50→21:16)
[2023-09-27 09:59] LABS: HIV RNA PCR Qn Copies NOT DETECTED copies/mL (NOT DETECTED); HIV RNA PCR Qn Log Copies NOT DETECTED (NOT DETECTED)
[2023-09-27 11:28] LABS: Glucose, Whole Blood 292 mg/dL (60-115)
[2023-09-27 15:45] VITALS: BP 133/75; PULSE 104; RESP 16; TEMP 36.1; O2SAT 97
[2023-09-27] MEDS: 0.9 % Sodium Chloride Flush 3 ML SYRINGE IVFLUSH ×3 (15:51→21:17)
[2023-09-27 16:24] LABS: Glucose, Whole Blood 266 mg/dL (60-115)
[2023-09-27] MEDS: Sodium Hypochlorite 0.125% 473 ML SOLUTION 1 APPL TOPICAL (16:47)
[2023-09-27 19:24] VITALS: BP 116/72; PULSE 120; RESP 18; TEMP 36.3; O2SAT 97
[2023-09-27 20:30] LABS: Glucose, Whole Blood 364 mg/dL (60-115)
[2023-09-27] MEDS: Insulin Glargine,Hum.rec.anlog 100 UNIT/ML 10 ML VIAL 8 UNIT SUBCUT (21:15)
[2023-09-27] MEDS: Docusate Sodium 100 MG CAPSULE PO (21:17)
[2023-09-28] MEDS: HYDROmorphone HCl 0.5 MG/0.5 ML SYRINGE IVPUSH ×6 (01:45→21:11)
[2023-09-28 03:38] VITALS: BP 115/54; PULSE 100; RESP 18; TEMP 36.1; O2SAT 97
[2023-09-28] MEDS: Omeprazole 40 MG CAPSULE.DR PO (05:37)
[2023-09-28 07:03] VITALS: BP 132/59; PULSE 98; RESP 16; TEMP 36.7; O2SAT 96
[2023-09-28 07:20] LABS: Glucose, Whole Blood 245 mg/dL (60-115)
[2023-09-28] MEDS: Insulin Lispro 100 UNIT/ML 3 ML VIAL SUBCUT ×4 (09:05→21:09)
[2023-09-28] MEDS: Heparin Sodium,Porcine 5,000 UNIT/ML VIAL 5000 UNIT SUBCUT ×2 (09:07→21:08)
[2023-09-28] MEDS: 0.9 % Sodium Chloride Flush 3 ML SYRINGE IVFLUSH ×3 (09:08→21:10)
[2023-09-28] MEDS: Bictegrav/Emtricit/Tenofov Ala TABLET 1 TAB PO (09:09)
[2023-09-28] MEDS: polyethylene glycoL 3350 17 GM POWD.PACK PO (09:09)
[2023-09-28] MEDS: Losartan Potassium 50 MG TABLET 100 MG PO (09:09)
[2023-09-28] MEDS: Sulfamethox/Trimeth 800/160 TABLET 1 TAB PO (09:09)
[2023-09-28] MEDS: Atorvastatin Calcium 40 MG TABLET PO (09:09)
[2023-09-28] MEDS: Fenofibrate 160 MG TABLET PO (09:09)
[2023-09-28] MEDS: Sodium Hypochlorite 0.125% 473 ML SOLUTION 1 APPL TOPICAL (09:16)
--- NOTE | 2023-09-28 09:20 | P.PNIM_ITS ---
Subjective Subjective Date of Service: 10/01/23 Interval History: seen and examined no new complaints Physical Exam 2 Vital Signs: Vital Signs: Last Vital Signs Temp 98.1 F 09/28/23 07:03 Pulse 98 09/28/23 07:03 Resp 16 09/28/23 07:03 BP 132/59 L 09/28/23 07:03 Pulse Ox 96 09/28/23 07:03 O2 Del Method Room Air 09/28/23 07:03 O2 Flow Rate 96 09/27/23 07:40 BMI result Body Mass Index 20.2 Objective Data Active Medications Acetaminophen (Acetaminophen 325 Mg Tablet) 650 mg G-TUBE Q6H PRN PRN Reason: Pain, Mild (Pain Scale 1-3) Atorvastatin Calcium (Atorvastatin Calcium 40 Mg Tablet) 40 mg PO DAILY [facility] Last Admin: 09/28/23 09:09 Dose: 40 mg Documented By: JONA Bictegravir/Emtricitabine/Tenofovir (Bictegrav/Emtricit/Tenofov Ala Tablet) 1 tab PO DAILY [facility] Last Admin: 09/28/23 09:09 Dose: 1 tab Documented By: JONA Docusate Sodium (Docusate Sodium 100 Mg Capsule) 100 mg PO BEDTIME [facility] Last Admin: 09/27/23 21:17 Dose: 100 mg Documented By: YORDY Fenofibrate (Fenofibrate 160 Mg Tablet) 160 mg PO DAILY [facility] Last Admin: 09/28/23 09:09 Dose: 160 mg Documented By: JONA Glucose (Glucose Gel 15 Gm Gel..Gram.) 15 gm PO Q15M PRN; Protocol PRN Reason: per Hypoglycemia Standing Ord. Heparin Sodium (Porcine) (Heparin Sodium,Porcine 5,000 Unit/Ml Vial) 5,000 unit SUBCUT Q12H [facility] Last Admin: 09/28/23 09:07 Dose: 5,000 unit Documented By: JONA Hydromorphone HCl (Hydromorphone Hcl 0.5 Mg/0.5 Ml Syringe) 0.5 mg IVPUSH Q3H PRN; Protocol PRN Reason: Pain, Severe (Pain Scale 7-10) Last Admin: 09/28/23 05:36 Dose: 0.5 mg Documented By: TATI Dextrose (D10) 250 mls @ 750 mls/hr IV Q15M PRN; Protocol PRN Reason: per Hypoglycemia Standing Ord. Insulin Glargine (Insulin Glargine,Hum.Rec.Anlog 100 Unit/Ml 10 Ml Vial) 8 unit SUBCUT BEDTIME [facility] Last Admin: 09/27/23 21:15 Dose: 8 unit Documented By: YORDY Insulin Human Lispro (Insulin Lispro 100 Unit/Ml 3 Ml Vial) 0 unit SUBCUT QIDACHS [facility]; Protocol Last Admin: 09/28/23 09:05 Dose: 4 unit Documented By: JONA Losartan Potassium (Losartan Potassium 50 Mg Tablet) 100 mg PO DAILY [facility]; Protocol Last Admin: 09/28/23 09:09 Dose: 100 mg Documented By: JONA Magnesium Hydroxide (Milk Of Magnesia 30 Ml Oral.Susp) 30 ml G-TUBE DAILY PRN PRN Reason: Constipation Omeprazole (Omeprazole 40 Mg Capsule.Dr) 40 mg PO DAILY@0630 [facility] Last Admin: 09/28/23 05:37 Dose: 40 mg Documented By: TATI Ondansetron HCl (Ondansetron Hcl 4 Mg/2 Ml Vial) 4 mg IVPUSH Q8H PRN PRN Reason: Nausea and Vomiting Oxycodone HCl (Oxycodone Hcl Immed Release 5 Mg Tablet) 5 mg PO Q4H PRN PRN Reason: Pain, Moderate(Pain Scale 4-6) Last Admin: 09/27/23 10:39 Dose: 5 mg Documented By: JONA Polyethylene Glycol (Polyethylene Glycol 3350 17 Gm Powd.Pack) 17 gm PO DAILY [facility] Last Admin: 09/28/23 09:09 Dose: 17 gm Documented By: JONA Sodium Chloride (0.9 % Sodium Chloride Flush 3 Ml Syringe) 3 ml IVFLUSH QSHIFT [facility] Last Admin: 09/28/23 09:08 Dose: 3 ml Documented By: JONA Sodium Hypochlorite (Sodium Hypochlorite 0.125% 473 Ml Solution) 1 appl TOPICAL DAILY [facility] Last Admin: 09/28/23 09:16 Dose: 1 appl Documented By: JONA Trimethoprim/Sulfamethoxazole (Sulfamethox/Trimeth 800/160 Tablet) 1 tab PO DAILY [facility] Last Admin: 09/28/23 09:09 Dose: 1 tab Documented By: JONA Labs 10/01/23 05:44 10/01/23 05:44 Labs: Laboratory Results - last 24 hr 09/24/23 09/27/23 09/27/23 18:01 11:19 16:19 POC Glucose 292 H 266 H HIV-1 RNA copies/mL NOT DETECTED HIV-1 RNA logcopies/mL NOT DETECTED 09/27/23 09/28/23 20:26 07:02 POC Glucose 364 H* 245 H HIV-1 RNA copies/mL HIV-1 RNA logcopies/mL Quality Stroke Does the patient have a stroke diagnosis?: No VTE Prior VTE?: No VTE Risk Level:: Medical - moderate - high VTE Device Contraindication: Treatment Not Indicated VTE Drug Contraindication: N/A - Med Ordered
[2023-09-28 11:09] LABS: Glucose, Whole Blood 299 mg/dL (60-115)
[2023-09-28 15:26] VITALS: BP 124/66; PULSE 93; RESP 18; TEMP 36.2; O2SAT 97
[2023-09-28 16:02] LABS: Glucose, Whole Blood 238 mg/dL (60-115)
[2023-09-28 19:20] VITALS: BP 110/56; PULSE 94; RESP 18; TEMP 36; O2SAT 93
[2023-09-28 20:29] LABS: Glucose, Whole Blood 223 mg/dL (60-115)
[2023-09-28] MEDS: Docusate Sodium 100 MG CAPSULE PO (21:08)
[2023-09-28] MEDS: Insulin Glargine,Hum.rec.anlog 100 UNIT/ML 10 ML VIAL 8 UNIT SUBCUT (21:09)
[2023-09-29] MEDS: HYDROmorphone HCl 0.5 MG/0.5 ML SYRINGE IVPUSH ×3 (02:56→17:50)
[2023-09-29 03:57] VITALS: BP 112/56; PULSE 93; RESP 18; TEMP 36.2; O2SAT 94
[2023-09-29] MEDS: Omeprazole 40 MG CAPSULE.DR PO (05:25)
[2023-09-29 07:19] VITALS: BP 108/58; PULSE 108; RESP 16; TEMP 36.2; O2SAT 94
[2023-09-29 07:32] LABS: Glucose, Whole Blood 396 mg/dL (60-115)
[2023-09-29] MEDS: 0.9 % Sodium Chloride Flush 3 ML SYRINGE IVFLUSH ×3 (09:18→21:08)
[2023-09-29] MEDS: Insulin Lispro 100 UNIT/ML 3 ML VIAL SUBCUT ×4 (09:19→21:04)
[2023-09-29] MEDS: Heparin Sodium,Porcine 5,000 UNIT/ML VIAL 5000 UNIT SUBCUT ×2 (09:19→21:06)
[2023-09-29 09:22] VITALS: BP 108/58
[2023-09-29] MEDS: Losartan Potassium 50 MG TABLET 100 MG PO (09:22)
[2023-09-29] MEDS: Bictegrav/Emtricit/Tenofov Ala TABLET 1 TAB PO (09:22)
[2023-09-29] MEDS: Sulfamethox/Trimeth 800/160 TABLET 1 TAB PO (09:22)
[2023-09-29] MEDS: Atorvastatin Calcium 40 MG TABLET PO (09:22)
[2023-09-29] MEDS: Sodium Hypochlorite 0.125% 473 ML SOLUTION 1 APPL TOPICAL (09:53)
--- NOTE | 2023-09-29 10:16 | MHC.CLN ---
F/U DIET RX:[facility]REE CONSISTENCY. MOST RECENT INTAKE POOR. PO INTAKE VARIABLE TUBE FEEDING CURRENTLY ON HOLD DUE TO HIGH RESIDUALS. WHEN ABLE, CONTINUE PEG TUBE FEEDINGS GLUCERNA AT MAX GOAL RATE 55 ML PER HOUR WITH 120 ML FREE WATER FLUSHES Q 8 HOURS PROVIDES 1320 KCALS (32.4 KCALS/KG), 55 G PROTEIN (1.35 G/KG), 1469 ML FREE WATER FROM FORMULA AND FLUSH (36 ML/KG) SEE RD NOTE 6/7 REGARDING BOLUS FEEDING FOR POTENTIAL DISCHARGE. BOLUS FEEDING IS NOT RECOMMENDED AT THIS TIME DUE TO HIGH RESIDUALS. FOLLOW FOR PO INTAKE, TUBE FEED TOLERANCE, AND LABS.
[2023-09-29 11:12] LABS: Glucose, Whole Blood 296 mg/dL (60-115)
[2023-09-29] MEDS: oxyCODONE HCl Immed Release 5 MG TABLET PO ×3 (11:26→21:20)
--- NOTE | 2023-09-29 12:53 | MHC.CM.PN ---
spoke with pt and family who are working on getting verificatins for Alfred,updated family with imfo from [employer] in [employer] who checked with Alfred today and found mh letitia has not been processed yet,it was receomended that she check back next week
--- NOTE | 2023-09-29 12:58 | HO.PM.IMPN ---
Subjective Subjective Date of Service: 09/29/23 Interval History: seen and examined no new complaints Physical Exam Vital Signs: Vital Signs: Last Vital Signs Temp 97.2 F 09/29/23 07:19 Pulse 108 H 09/29/23 07:19 Resp 16 09/29/23 07:19 BP 108/58 L 09/29/23 09:22 Pulse Ox 94 09/29/23 07:19 O2 Del Method Room Air 09/29/23 07:19 O2 Flow Rate 96 09/27/23 07:40 BMI result Body Mass Index 20.2 Appearing in no acute distress lung sounds are clear to auscultation heart regular rate rhythm, clear S1, S2 positive bowel sounds, abdomen is soft, nontender neuro patient is alert x3, no focal deficits Objective Data Active Medications Acetaminophen (Acetaminophen 325 Mg Tablet) 650 mg G-TUBE Q6H PRN PRN Reason: Pain, Mild (Pain Scale 1-3) Atorvastatin Calcium (Atorvastatin Calcium 40 Mg Tablet) 40 mg PO DAILY [facility] Last Admin: 09/29/23 09:22 Dose: 40 mg Documented By: ELYSSA Bictegravir/Emtricitabine/Tenofovir (Bictegrav/Emtricit/Tenofov Ala Tablet) 1 tab PO DAILY [facility] Last Admin: 09/29/23 09:22 Dose: 1 tab Documented By: ELYSSA Docusate Sodium (Docusate Sodium 100 Mg Capsule) 100 mg PO BEDTIME [facility] Last Admin: 09/28/23 21:08 Dose: 100 mg Documented By: BARRY Comments: given per GT Fenofibrate (Fenofibrate 54 Mg Tablet) 54 mg PO DAILY [facility] Last Admin: 09/29/23 09:08 Dose: Not Given Documented By: ELYSSA Non-Admin Reason: GTube Glucose (Glucose Gel 15 Gm Gel..Gram.) 15 gm PO Q15M PRN; Protocol PRN Reason: per Hypoglycemia Standing Ord. Heparin Sodium (Porcine) (Heparin Sodium,Porcine 5,000 Unit/Ml Vial) 5,000 unit SUBCUT Q12H [facility] Last Admin: 09/29/23 09:19 Dose: 5,000 unit Documented By: ELYSSA Hydromorphone HCl (Hydromorphone Hcl 0.5 Mg/0.5 Ml Syringe) 0.5 mg IVPUSH Q3H PRN; Protocol PRN Reason: Pain, Severe (Pain Scale 7-10) Last Admin: 09/29/23 09:15 Dose: 0.5 mg Documented By: ELYSSA Dextrose (D10) 250 mls @ 750 mls/hr IV Q15M PRN; Protocol PRN Reason: per Hypoglycemia Standing Ord. Insulin Glargine (Insulin Glargine,Hum.Rec.Anlog 100 Unit/Ml 10 Ml Vial) 8 unit SUBCUT BEDTIME [facility] Last Admin: 09/28/23 21:09 Dose: 8 unit Documented By: BARRY Insulin Human Lispro (Insulin Lispro 100 Unit/Ml 3 Ml Vial) 0 unit SUBCUT QIDACHS [facility]; Protocol Last Admin: 09/29/23 11:25 Dose: 6 unit Documented By: ELYSSA Losartan Potassium (Losartan Potassium 50 Mg Tablet) 100 mg PO DAILY [facility]; Protocol Last Admin: 09/29/23 09:22 Dose: 100 mg Documented By: ELYSSA Magnesium Hydroxide (Milk Of Magnesia 30 Ml Oral.Susp) 30 ml G-TUBE DAILY PRN PRN Reason: Constipation Omeprazole (Omeprazole 40 Mg Capsule.Dr) 40 mg PO DAILY@0630 [facility] Last Admin: 09/29/23 05:25 Dose: 40 mg Documented By: BARRY Ondansetron HCl (Ondansetron Hcl 4 Mg/2 Ml Vial) 4 mg IVPUSH Q8H PRN PRN Reason: Nausea and Vomiting Oxycodone HCl (Oxycodone Hcl Immed Release 5 Mg Tablet) 5 mg PO Q4H PRN PRN Reason: Pain, Moderate(Pain Scale 4-6) Last Admin: 09/29/23 11:26 Dose: 5 mg Documented By: ELYSSA Polyethylene Glycol (Polyethylene Glycol 3350 17 Gm Powd.Pack) 17 gm PO DAILY [facility] Last Admin: 09/29/23 09:09 Dose: Not Given Documented By: ELYSSA Non-Admin Reason: Patient Refused Sodium Chloride (0.9 % Sodium Chloride Flush 3 Ml Syringe) [facility] Last Admin: 09/29/23 09:18 Dose: 3 ml Documented By: ELYSSA Sodium Hypochlorite (Sodium Hypochlorite 0.125% 473 Ml Solution) 1 appl TOPICAL DAILY [facility] Last Admin: 09/29/23 09:53 Dose: 1 appl Documented By: ELYSSA Trimethoprim/Sulfamethoxazole (Sulfamethox/Trimeth 800/160 Tablet) 1 tab PO DAILY [facility] Last Admin: 09/29/23 09:22 Dose: 1 tab Documented By: ELYSSA Labs 09/27/23 05:15 09/27/23 05:15 Labs: Laboratory Results - last 24 hr 09/28/23 09/28/23 09/29/23 15:54 20:24 07:22 POC Glucose 238 H 223 H 396 H* 09/29/23 11:04 POC Glucose 296 H Microbiology Microbiology Results: Microbiology 09/23/23 14:48 Blood Culture - Final Blood - Venous No growth after 5 days. 09/23/23 14:28 Blood Culture - Final Blood - Venous No growth after 5 days. 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 Hx of surgical removal of Left side mandible CT soft tissue neck shows large soft tissue masses involving mucosal surfaces throughout the head and neck and multiple extra mucosal soft tissue compartments with adenopathy and involvement of the overlying skin surface IV vancomycin and Zosyn stopped per ID, no infection Seen by Oncology, for advanced oropharyngeal cancer, this is outside the scope for agency, patient will need referral to [facility] and radiation oncology consultation upon discharge not amenable to surgical resection local wound care Initially thought to have infected G-tube site with cellulitis and sepsis Seen by ID, no infection, white count is leukemoid reaction from cancer stop Antibiotics Blood cultures negative times 24 hours Seen by surgery, G-tube not infected, normal drainage noted nutrition consult for tube feeds> glucerna 55ml/hr, free water 120Q8h , able to take some po pureed. (Bolus feed recommendations documented by nutrition for discharge, see note for details) HIV has not taken anti-retroviral therapy for unspecified period of time-days versus weeks prior to admission On Biktarvy at baseline, ID recommends changed to Triumeq as patient unable to take pills whole - discussed with pharmacy, they will place order CD4 count less than 200, daily Bactrim for prophylaxis Hypomagnesemia improved with replacement chronic hypercalcemia likely related to dehydration as well as malignancy acute/subacute rib fractures/L1 compression fracture s/p mechanical fall pain management p.r.n. DM2 with hyperglycemia Lantus at bedtime ss HTN stable BP not on home bp meds HLD statin Moderate malnutrition. BMI 20.2 Gtube feeds and pureed diet dvt prophylaxis- heparin Attending Dr. Jama full code per patient dispo - likely home with family as no pcp; CM following Requires ongoing inpatient stay for invasive tumor of head/neck requiring expert consultation and in patient with HIV who has been noncompliant with anti-retroviral therapy and is immunocompromised, safe disposition and electrolyte monitoring Quality Stroke Does the patient have a stroke diagnosis?: No VTE Prior VTE?: No VTE Risk Level:: Medical - moderate - high VTE Device Contraindication: Treatment Not Indicated VTE Drug Contraindication: N/A - Med Ordered
[2023-09-29 13:53] VITALS: PULSE 100; O2SAT 98
--- NOTE | 2023-09-29 14:46 | HO.WOUND ---
Wound Consult: Initial 68yr old?female admitted to [facility] on 09/23/23 - See progress notes and H&P for detailed history.? Wound consult placed for Gtube site and Left Neck / Face.? Patient agreeable to assessment and photo documentation.? The Gtube site is intact mild erythema appears to have resolved. Tube will benefit from device securement - the less the tube moves the bulmaro leaking will be noted. The facial neck fungating neoplasm has topical orders in place from Dr. Hoskins on 09/23/23. Spoke to direct care nurse she denies noting excessive bleeding from the site. Will defer topical orders to providers orders for the following per chart review - facial mass - clean with dakins solution and wet to dry dressings in ulcerated crater to be changed daily. Recommendations: 1. Turn and Reposition every 2 hours and as needed for patient comfort.? Use pillows or wedges to support off loading positions. 2. Off Load all bony prominences with use of pillows and heel boots if needed.? Apply Preventative foams where needed. ? 3. Monitor for incontinence and moisture control, use barrier creams when needed for prevention and treatment. 4. Provide adequate and supplemental nutrition.?Nutrition following. 5. Order low air loss mattress. 6. When applicable maintain blood glucose levels per Providers order. 7. Gtube site - Routine tube care. Use split gauze under Gtube, Change Daily and PRN for drainage. Secure tube to abdomen with either tube securement device or tape to minimize tube movement and increase stability. 8. Left Facial / Neck Neoplasm - Defer to provider orders in place. Re-consult wound care Nurse for wound deterioration or wound changes. facial mass - clean with dakins solution and wet to dry dressings in ulcerated crater to be changed daily.
[2023-09-29 15:08] VITALS: BP 118/60; PULSE 86; RESP 16; TEMP 36.6; O2SAT 96
[2023-09-29 16:24] LABS: Glucose, Whole Blood 202 mg/dL (60-115)
[2023-09-29 19:34] VITALS: BP 112/59; PULSE 93; RESP 16; TEMP 37.2; O2SAT 95
[2023-09-29 20:29] LABS: Glucose, Whole Blood 217 mg/dL (60-115)
[2023-09-29] MEDS: Insulin Glargine,Hum.rec.anlog 100 UNIT/ML 10 ML VIAL 8 UNIT SUBCUT (21:05)
[2023-09-30] MEDS: HYDROmorphone HCl 0.5 MG/0.5 ML SYRINGE IVPUSH (01:52)
[2023-09-30 03:23] VITALS: BP 136/64; PULSE 110; RESP 16; TEMP 36.5; O2SAT 98
[2023-09-30] MEDS: oxyCODONE HCl Immed Release 5 MG TABLET PO ×5 (03:26→23:10)
[2023-09-30] MEDS: Omeprazole 40 MG CAPSULE.DR PO (06:37)
[2023-09-30 07:30] LABS: Glucose, Whole Blood 295 mg/dL (60-115)
[2023-09-30 08:00] VITALS: BP 102/55; PULSE 52; RESP 16; TEMP 36.3; O2SAT 97
[2023-09-30] MEDS: Bictegrav/Emtricit/Tenofov Ala TABLET 1 TAB PO (09:25)
[2023-09-30] MEDS: Atorvastatin Calcium 40 MG TABLET PO (09:25)
[2023-09-30 09:26] VITALS: BP 102/55
[2023-09-30] MEDS: Insulin Lispro 100 UNIT/ML 3 ML VIAL SUBCUT ×4 (09:26→21:09)
[2023-09-30] MEDS: Sulfamethox/Trimeth 800/160 TABLET 1 TAB PO (09:26)
[2023-09-30] MEDS: 0.9 % Sodium Chloride Flush 3 ML SYRINGE IVFLUSH (09:27)
[2023-09-30] MEDS: Heparin Sodium,Porcine 5,000 UNIT/ML VIAL 5000 UNIT SUBCUT (09:27)
[2023-09-30] MEDS: Sodium Hypochlorite 0.125% 473 ML SOLUTION 1 APPL TOPICAL (09:46)
[2023-09-30 11:19] LABS: Glucose, Whole Blood 338 mg/dL (60-115)
--- NOTE | 2023-09-30 14:22 | MHC.CLN ---
RE: CONSULT CM REQUESTED BOLUS FEEDING ORDER FOR POTENTIAL DISCHARGE: RECOMMEND GLUCERNA 1.0 CARTONS (OR EQUIVALENT FORMULA) BOLUS 1 CARTON (237ML) X6 PER DAY TO PROVIDE 1422KCALS (35KCALS/KG), 59G PROTEIN (1.45G/KG), 1213ML FREE WATER FROM FORMULA CONTINUE 120ML FREE WATER FLUSHES TID TO PROVIDE 1573ML TOTAL WATER FROM FORMULA AND FLUSHES (38.5ML/KG)
--- NOTE | 2023-09-30 14:30 | HO.PM.IMPN ---
Subjective Subjective Date of Service: 09/30/23 Interval History: seen and examined no new complaints Physical Exam Vital Signs: Vital Signs: Last Vital Signs Temp 97.4 F 09/30/23 08:00 Pulse 52 09/30/23 08:00 Resp 16 09/30/23 08:00 BP 102/55 L 09/30/23 09:26 Pulse Ox 97 09/30/23 08:00 O2 Del Method Room Air 09/30/23 08:00 O2 Flow Rate 96 09/27/23 07:40 BMI result Body Mass Index 20.2 Appearing in no acute distress lung sounds are clear to auscultation heart regular rate rhythm, clear S1, S2 positive bowel sounds, abdomen is soft, nontender neuro patient is alert x3, no focal deficits Gtube Left side face malignancy Objective Data Active Medications Acetaminophen (Acetaminophen 325 Mg Tablet) 650 mg G-TUBE Q6H PRN PRN Reason: Pain, Mild (Pain Scale 1-3) Atorvastatin Calcium (Atorvastatin Calcium 40 Mg Tablet) 40 mg PO DAILY [facility] Last Admin: 09/30/23 09:25 Dose: 40 mg Documented By: YVETTE Bictegravir/Emtricitabine/Tenofovir (Bictegrav/Emtricit/Tenofov Ala Tablet) 1 tab PO DAILY [facility] Last Admin: 09/30/23 09:25 Dose: 1 tab Documented By: YVETTE Docusate Sodium (Docusate Sodium 100 Mg Capsule) 100 mg PO BEDTIME [facility] Last Admin: 09/29/23 21:02 Dose: Not Given Documented By: HORACE Non-Admin Reason: pt unable to swallow, cant crush med Fenofibrate (Fenofibrate 54 Mg Tablet) 54 mg PO DAILY [facility] Last Admin: 09/30/23 09:25 Dose: Not Given Documented By: YVETTE Non-Admin Reason: can't crush Glucose (Glucose Gel 15 Gm Gel..Gram.) 15 gm PO Q15M PRN; Protocol PRN Reason: per Hypoglycemia Standing Ord. Heparin Sodium (Porcine) (Heparin Sodium,Porcine 5,000 Unit/Ml Vial) 5,000 unit SUBCUT Q12H [facility] Last Admin: 09/30/23 09:27 Dose: 5,000 unit Documented By: YVETTE Hydromorphone HCl (Hydromorphone Hcl 0.5 Mg/0.5 Ml Syringe) 0.5 mg IVPUSH Q3H PRN; Protocol PRN Reason: Pain, Severe (Pain Scale 7-10) Last Admin: 09/30/23 01:52 Dose: 0.5 mg Documented By: HORACE Dextrose (D10) 250 mls @ 750 mls/hr IV Q15M PRN; Protocol PRN Reason: per Hypoglycemia Standing Ord. Insulin Glargine (Insulin Glargine,Hum.Rec.Anlog 100 Unit/Ml 10 Ml Vial) 8 unit SUBCUT BEDTIME [facility] Last Admin: 09/29/23 21:05 Dose: 8 unit Documented By: HORACE Insulin Human Lispro (Insulin Lispro 100 Unit/Ml 3 Ml Vial) 0 unit SUBCUT QIDACHS [facility]; Protocol Last Admin: 09/30/23 13:13 Dose: 8 unit Documented By: YVETTE Losartan Potassium (Losartan Potassium 50 Mg Tablet) 100 mg PO DAILY [facility]; Protocol Last Admin: 09/30/23 09:26 Dose: Not Given Documented By: YVETTE Non-Admin Reason: Decreased Heart Rate Comments: hr 52 Magnesium Hydroxide (Milk Of Magnesia 30 Ml Oral.Susp) 30 ml G-TUBE DAILY PRN PRN Reason: Constipation Omeprazole (Omeprazole 40 Mg Capsule.Dr) 40 mg PO DAILY@0630 [facility] Last Admin: 09/30/23 06:37 Dose: 40 mg Documented By: HORACE Ondansetron HCl (Ondansetron Hcl 4 Mg/2 Ml Vial) 4 mg IVPUSH Q8H PRN PRN Reason: Nausea and Vomiting Oxycodone HCl (Oxycodone Hcl Immed Release 5 Mg Tablet) 5 mg PO Q4H PRN PRN Reason: Pain, Moderate(Pain Scale 4-6) Last Admin: 09/30/23 13:20 Dose: 5 mg Documented By: YEVTTE Polyethylene Glycol (Polyethylene Glycol 3350 17 Gm Powd.Pack) 17 gm PO DAILY [facility] Last Admin: 09/30/23 09:21 Dose: Not Given Documented By: YVETTE Non-Admin Reason: Patient Refused Sodium Chloride (0.9 % Sodium Chloride Flush 3 Ml Syringe) 3 [facility] Last Admin: 09/30/23 09:27 Dose: 3 ml Documented By: YVETTE Sodium Hypochlorite (Sodium Hypochlorite 0.125% 473 Ml Solution) 1 appl TOPICAL DAILY [facility] Last Admin: 09/30/23 09:46 Dose: 1 appl Documented By: YVETTE Trimethoprim/Sulfamethoxazole (Sulfamethox/Trimeth 800/160 Tablet) 1 tab PO DAILY [facility] Last Admin: 09/30/23 09:26 Dose: 1 tab Documented By: YVETTE Labs 09/27/23 05:15 09/27/23 05:15 Labs: Laboratory Results - last 24 hr 09/29/23 09/29/23 09/30/23 16:18 20:25 07:23 POC Glucose 202 H 217 H 295 H 09/30/23 11:15 POC Glucose 338 H Assessment and Plan (1) HIV (human immunodeficiency virus infection): Status: Acute (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 Hx of surgical removal of Left side mandible CT soft tissue neck shows large soft tissue masses involving mucosal surfaces throughout the head and neck and multiple extra mucosal soft tissue compartments with adenopathy and involvement of the overlying skin surface IV vancomycin and Zosyn stopped per ID, no infection Seen by Oncology, for advanced oropharyngeal cancer, this is outside the scope for agency, patient will need referral to [facility] and radiation oncology consultation upon discharge not amenable to surgical resection local wound care Initially thought to have infected G-tube site with cellulitis and sepsis Seen by ID, no infection, white count is leukemoid reaction from cancer s/p Antibiotics Blood cultures negative to date Seen by surgery, G-tube not infected, normal drainage noted nutrition consult for tube feeds> glucerna 55ml/hr, free water 120Q8h , now not able to take po pureed. (Bolus feed recommendations documented by nutrition for discharge, see note for details) HIV Biktarvy ID recommends changed to Triumeq as patient unable to take pills whole - discussed with pharmacy, they will place order CD4 count less than 200, daily Bactrim for prophylaxis Hypomagnesemia improved with replacement chronic hypercalcemia likely related to dehydration as well as malignancy acute/subacute rib fractures/L1 compression fracture s/p mechanical fall pain management p.r.n. DM2 with hyperglycemia Lantus at bedtime ss HTN stable BP not on home bp meds HLD statin Moderate malnutrition. BMI 20.2 Gtube feeds and pureed diet DISPO [facility] application pending dvt prophylaxis- heparin Attending Dr. Jama full code per patient dispo - likely home with family as no pcp; CM following Requires ongoing inpatient stay for invasive tumor of head/neck requiring expert consultation and in patient with HIV who has been noncompliant with anti-retroviral therapy and is immunocompromised, safe disposition and electrolyte monitoring Quality Stroke Does the patient have a stroke diagnosis?: No VTE Prior VTE?: No VTE Risk Level:: Medical - moderate - high VTE Device Contraindication: Treatment Not Indicated VTE Drug Contraindication: N/A - Med Ordered
--- NOTE | 2023-09-30 14:54 | MHC.CM.PN ---
again spoke with fs/radames borges pts pts [facility]ia staus remains the same as yesteday it has not been processed
[2023-09-30 14:58] VITALS: BP 110/54; PULSE 99; RESP 16; TEMP 36.3; O2SAT 95
[2023-09-30 16:57] LABS: Glucose, Whole Blood 168 mg/dL (60-115)
--- NOTE | 2023-09-30 19:45 | PC.NURSE ---
IV outdated and planned for discharge today. Kelly notified. No need to reinsert IV. Taking pain meds through g-tube.
[2023-09-30 19:49] VITALS: BP 136/67; PULSE 97; RESP 16; TEMP 36.2; O2SAT 97
[2023-09-30 21:08] LABS: Glucose, Whole Blood 202 mg/dL (60-115)
[2023-09-30] MEDS: Insulin Glargine,Hum.rec.anlog 100 UNIT/ML 10 ML VIAL 8 UNIT SUBCUT (21:10)
[2023-10-01 03:19] VITALS: BP 135/63; PULSE 97; RESP 16; TEMP 36.1; O2SAT 95
[2023-10-01] MEDS: Omeprazole/Na Bicarb Oral Susp 20 MG/10 ML UD Cup PO (05:28)
[2023-10-01] MEDS: oxyCODONE HCl Immed Release 5 MG TABLET PO ×5 (05:30→22:11)
[2023-10-01 06:56] LABS: Hematocrit 31.2 % (37.0-47.0); Hemoglobin 11.3 g/dl (12.0-16.0); Mean Corpuscular HGB Conc 36.2 g/dl (31.0-35.0); Mean Corpuscular Hemoglobin 32.9 pg (27.0-33.0); Mean Platelet Volume 11.1 fL (9.4-12.3); Platelet Count 390 X10*3/uL (160-400); Red Blood Count 3.43 X10*6/uL (4.20-5.50); Red Cell Distribution Width 13.7 % (11.0-16.0); White Blood Count 29.5 X10*3/uL (4.8-10.8)
[2023-10-01 07:10] LABS: Anion Gap 11 (12-20); Blood Urea Nitrogen 15 mg/dL (9-16); Carbon Dioxide 25 mmol/L (22-29); Chloride 96 mmol/L (96-108); Creatinine Clr Calc Pharmacy 24.6; Estimated Glomerular Filt Rate 42; Glucose Random 286 mg/dL (60-115); Potassium 4.4 mmol/L (3.3-5.1); Sodium 128 mmol/L (135-145)
[2023-10-01 07:22] VITALS: BP 117/58; PULSE 94; RESP 18; TEMP 36.6; O2SAT 96
[2023-10-01 07:27] LABS: Calcium 13.4 mg/dL (8.4-10.2)
[2023-10-01 07:30] LABS: Glucose, Whole Blood 291 mg/dL (60-115)
[2023-10-01] MEDS: Insulin Lispro 100 UNIT/ML 3 ML VIAL SUBCUT ×4 (08:35→21:00)
[2023-10-01] MEDS: Heparin Sodium,Porcine 5,000 UNIT/ML VIAL 5000 UNIT SUBCUT ×2 (08:36→20:36)
[2023-10-01 08:39] VITALS: BP 117/58
[2023-10-01] MEDS: Losartan Potassium 50 MG TABLET 100 MG PO (08:39)
[2023-10-01] MEDS: Atorvastatin Calcium 40 MG TABLET PO (08:39)
[2023-10-01] MEDS: Docusate Sodium 100 MG/10 ML LIQUID PO (08:39)
[2023-10-01] MEDS: Bictegrav/Emtricit/Tenofov Ala TABLET 1 TAB PO (08:39)
[2023-10-01] MEDS: Sodium Hypochlorite 0.125% 473 ML SOLUTION 1 APPL TOPICAL (08:40)
[2023-10-01] MEDS: Sulfamethox/Trimeth 800/160 TABLET 1 TAB PO (08:40)
--- NOTE | 2023-10-01 09:36 | HO.PM.IMPN ---
Subjective Subjective Date of Service: 10/01/23 Interval History: Seen infollow up Interval history: Reports 9/10 pain in the neck and around gtube site. Gtube leaking tube feeds. No surrounding erythema or purulent drainage- no infection per general surgery. Otherwise no complaints Review of Systems Review of Systems: Yes all other systems are reviewed and are negative Physical Exam Vital Signs: Vital Signs: Last Vital Signs Temp 97.8 F 10/01/23 07:22 Pulse 94 10/01/23 07:22 Resp 18 10/01/23 07:22 BP 117/58 L 10/01/23 08:39 Pulse Ox 96 10/01/23 07:22 O2 Del Method Room Air 10/01/23 07:22 O2 Flow Rate 96 09/27/23 07:40 BMI result Body Mass Index 20.2 Constitutional - Awake and Alert, No apparent distress Eyes - PERRLA, EOMI Cardiovascular - S1S2, RRR, No edema Respiratory - Normal lung expansion, Normal respiratory effort, No respiratory distress, CTA bilaterally Gastrointestinal - ND; +BS; No rebound or guarding. Gtube in place leaking glucerna, no purulent drainage with mild surrounding ttp, otherwise no ttp, abd soft Extremities - no calf tenderness bilaterally, no swelling Skin - Warm/Dry Neurological - Alert & oriented x3, CN II-XII in tact, 5/5 strength BUE and BLE Psychological - Appropriate affect Objective Data Active Medications Acetaminophen (Acetaminophen 325 Mg Tablet) 650 mg G-TUBE Q6H PRN PRN Reason: Pain, Mild (Pain Scale 1-3) Atorvastatin Calcium (Atorvastatin Calcium 40 Mg Tablet) 40 mg PO DAILY [facility] Last Admin: 10/01/23 08:39 Dose: 40 mg Documented By: YVETTE Bictegravir/Emtricitabine/Tenofovir (Bictegrav/Emtricit/Tenofov Ala Tablet) 1 tab PO DAILY [facility] Last Admin: 10/01/23 08:39 Dose: 1 tab Documented By: YVETTE Docusate Sodium (Docusate Sodium 100 Mg/10 Ml Liquid) 100 mg PO DAILY [facility] Last Admin: 10/01/23 08:39 Dose: 100 mg Documented By: YVETTE Fenofibrate (Fenofibrate 54 Mg Tablet) 54 mg PO DAILY [facility] Last Admin: 10/01/23 08:38 Dose: Not Given Documented By: YVETTE Non-Admin Reason: can't crush Glucose (Glucose Gel 15 Gm Gel..Gram.) 15 gm PO Q15M PRN; Protocol PRN Reason: per Hypoglycemia Standing Ord. Heparin Sodium (Porcine) (Heparin Sodium,Porcine 5,000 Unit/Ml Vial) 5,000 unit SUBCUT Q12H [facility] Last Admin: 10/01/23 08:36 Dose: 5,000 unit Documented By: YVETTE Dextrose (D10) 250 mls @ 750 mls/hr IV Q15M PRN; Protocol PRN Reason: per Hypoglycemia Standing Ord. Insulin Glargine (Insulin Glargine,Hum.Rec.Anlog 100 Unit/Ml 10 Ml Vial) 8 unit SUBCUT BEDTIME [facility] Last Admin: 09/30/23 21:10 Dose: 8 unit Documented By: HORACE Insulin Human Lispro (Insulin Lispro 100 Unit/Ml 3 Ml Vial) 0 unit SUBCUT QIDACHS [facility]; Protocol Last Admin: 10/01/23 08:35 Dose: 6 unit Documented By: YVETTE Losartan Potassium (Losartan Potassium 50 Mg Tablet) 100 mg PO DAILY [facility]; Protocol Last Admin: 10/01/23 08:39 Dose: 100 mg Documented By: YVETTE Magnesium Hydroxide (Milk Of Magnesia 30 Ml Oral.Susp) 30 ml G-TUBE DAILY PRN PRN Reason: Constipation Omeprazole (Omeprazole/Na Bicarb Oral Susp 20 Mg/10 Ml Ud Cup) 20 mg PO DAILY@0630 [facility] Last Admin: 10/01/23 05:28 Dose: 20 mg Documented By: HORACE Ondansetron HCl (Ondansetron Hcl 4 Mg/2 Ml Vial) 4 mg IVPUSH Q8H PRN PRN Reason: Nausea and Vomiting Oxycodone HCl (Oxycodone Hcl Immed Release 5 Mg Tablet) 5 mg PO Q4H PRN PRN Reason: Pain, Severe (Pain Scale 7-10) Last Admin: 10/01/23 09:13 Dose: 5 mg Documented By: YVETTE Comments: ok to give early per Jenny Barnes Polyethylene Glycol (Polyethylene Glycol 3350 17 Gm Powd.Pack) 17 gm PO DAILY [facility] Last Admin: 10/01/23 08:39 Dose: Not Given Documented By: YVETTE Non-Admin Reason: Patient Refused Sodium Chloride (0.9 % Sodium Chloride Flush 3 Ml Syringe) 3 ml IVFLUSH QSHIFT [facility] Last Admin: 10/01/23 08:37 Dose: Not Given Documented By: YVETTE Non-Admin Reason: No Access Sodium Hypochlorite (Sodium Hypochlorite 0.125% 473 Ml Solution) 1 appl TOPICAL DAILY [facility] Last Admin: 10/01/23 08:40 Dose: 1 appl Documented By: YVETTE Trimethoprim/Sulfamethoxazole (Sulfamethox/Trimeth 800/160 Tablet) 1 tab PO DAILY [facility] Last Admin: 10/01/23 08:40 Dose: 1 tab Documented By: YVETTE Labs 10/01/23 05:44 10/01/23 05:44 Labs: Laboratory Results - last 24 hr 09/30/23 09/30/23 09/30/23 11:15 16:32 20:59 MCV MCH MCHC RDW Plt Count MPV Absolute Nucleated RBC Nucleated RBC % (auto) Anion Gap Estim Creat Clear Calc Estimated GFR POC Glucose 338 H 168 H 202 H Random Glucose Calcium 10/01/23 10/01/23 05:44 07:26 MCV 91.0 MCH 32.9 MCHC 36.2 H RDW 13.7 Plt Count 390 MPV 11.1 Absolute Nucleated RBC 0.000 Nucleated RBC % (auto) 0.0 Anion Gap 11 L Estim Creat Clear Calc 24.6 Estimated GFR 42 POC Glucose 291 H Random Glucose 286 H Calcium 13.4 H* D Assessment and Plan (1) HIV (human immunodeficiency virus infection): Status: Acute (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 Hx of surgical removal of Left side mandible CT soft tissue neck shows large soft tissue masses involving mucosal surfaces throughout the head and neck and multiple extra mucosal soft tissue compartments with adenopathy and involvement of the overlying skin surface IV vancomycin and Zosyn stopped per ID, no infection Seen by Oncology, for advanced oropharyngeal cancer, this is outside the scope for agency, patient will need referral to [facility] and radiation oncology consultation upon discharge not amenable to surgical resection local wound care Initially thought to have infected G-tube site with cellulitis and sepsis Seen by ID, no infection, white count is leukemoid reaction from cancer. Reevaluated by general surgery 09/30- no infection but leaking glucerna, advanced and balloon reinflated s/p Antibiotics Blood cultures negative to date Seen by surgery, G-tube not infected, normal drainage noted nutrition consult for tube feeds> glucerna 55ml/hr, free water 120Q8h , now not able to take po pureed. (Bolus feed recommendations documented by nutrition for discharge, see note for details) HIV Biktarvy ID recommends changed to Triumeq as patient unable to take pills whole - discussed with pharmacy, they will place order CD4 count less than 200, daily Bactrim for prophylaxis Hypomagnesemia improved with replacement chronic hypercalcemia likely related to dehydration as well as malignancy acute/subacute rib fractures/L1 compression fracture s/p mechanical fall pain management p.r.n. DM2 with hyperglycemia Lantus at bedtime ss HTN stable BP not on home bp meds HLD statin Moderate malnutrition. BMI 20.2 Gtube feeds and pureed diet DISPO ehealthtracker application pending dvt prophylaxis- heparin Attending Dr. Jama full code per patient dispo - likely home with family as no pcp; CM following , awaiting [employer] approval so glucerna can be covered, otherwise cannot afford and not taking in much po Requires ongoing inpatient stay for invasive tumor of head/neck requiring expert consultation and in patient with HIV who has been noncompliant with anti-retroviral therapy and is immunocompromised, safe disposition and electrolyte monitoring Quality Stroke Does the patient have a stroke diagnosis?: No VTE Prior VTE?: No VTE Risk Level:: Medical - moderate - high VTE Device Contraindication: Treatment Not Indicated VTE Drug Contraindication: N/A - Med Ordered
--- NOTE | 2023-10-01 10:34 | MHC.CLN ---
F/U DIET RX:[facility]ST[facility]. PO INTAKE VARIABLE. TUBE FEEDING RUNNING AT MAX GOAL RATE: GLUCERNA AT MAX GOAL RATE 55 ML PER HOUR WITH 120 ML FREE WATER FLUSHES Q 8 HOURS PROVIDES 1320 KCALS (32.4 KCALS/KG), 55 G PROTEIN (1.35 G/KG), 1469 ML FREE WATER FROM FORMULA AND FLUSH (36 ML/KG) [id number] L ON 09/30. SEE RD NOTE 09/29 REGARDING BOLUS FEEDING FOR POTENTIAL DISCHARGE. FOLLOW FOR PO INTAKE, TUBE FEED TOLERANCE, AND LABS.
[2023-10-01 11:18] LABS: Glucose, Whole Blood 302 mg/dL (60-115)
--- NOTE | 2023-10-01 13:51 | PM.PNGS ---
Subjective Subjective Date of Service: 10/01/23 Interval history: Patient complaining of pain around G tube site. Asked to reassess by medicine. She reports some discomfort surrounding G tube. Denies nausea, vomiting. She is passing flatus but no BM in a few days, reports hx of chronic constipation. Physical Exam Vital Signs: Vital Signs: Last Vital Signs Temp 97.8 F 10/01/23 07:22 Pulse 94 10/01/23 07:22 Resp 18 10/01/23 07:22 BP 117/58 L 10/01/23 08:39 Pulse Ox 96 10/01/23 07:22 O2 Del Method Room Air 10/01/23 07:22 O2 Flow Rate 96 09/27/23 07:40 BMI result Body Mass Index 20.2 Const: General: comfortable and no acute distress Nutritional Appearance: malnourished and thin Orientation/consciousness: patient oriented x3 Resp: Effort & Inspection: normal respiratory effort GI: Other: midline incision well healed G tube site dressing with what appears to be feed contents on dressing and leaking around G tube site area cleansed and no evidence of erythema, purulence abd soft, mild tenderness at G tube site Neuro: General: patient oriented x3 Objective Data Active Medications Acetaminophen (Acetaminophen 325 Mg Tablet) 650 mg G-TUBE Q6H PRN PRN Reason: Pain, Mild (Pain Scale 1-3) Atorvastatin Calcium (Atorvastatin Calcium 40 Mg Tablet) 40 mg PO DAILY [facility] Last Admin: 10/01/23 08:39 Dose: 40 mg Documented By: YVETTE Bictegravir/Emtricitabine/Tenofovir (Bictegrav/Emtricit/Tenofov Ala Tablet) 1 tab PO DAILY [facility] Last Admin: 10/01/23 08:39 Dose: 1 tab Documented By: YVETTE Docusate Sodium (Docusate Sodium 100 Mg/10 Ml Liquid) 100 mg PO DAILY [facility] Last Admin: 10/01/23 08:39 Dose: 100 mg Documented By: YVETTE Fenofibrate (Fenofibrate 54 Mg Tablet) 54 mg PO DAILY [facility] Last Admin: 10/01/23 08:38 Dose: Not Given Documented By: YVETTE Non-Admin Reason: can't crush Glucose (Glucose Gel 15 Gm Gel..Gram.) 15 gm PO Q15M PRN; Protocol PRN Reason: per Hypoglycemia Standing Ord. Heparin Sodium (Porcine) (Heparin Sodium,Porcine 5,000 Unit/Ml Vial) 5,000 unit SUBCUT Q12H [facility] Last Admin: 10/01/23 08:36 Dose: 5,000 unit Documented By: YVETTE Dextrose (D10) 250 mls @ 750 mls/hr IV Q15M PRN; Protocol PRN Reason: per Hypoglycemia Standing Ord. Insulin Glargine (Insulin Glargine,Hum.Rec.Anlog 100 Unit/Ml 10 Ml Vial) 8 unit SUBCUT BEDTIME [facility] Last Admin: 09/30/23 21:10 Dose: 8 unit Documented By: HORACE Insulin Human Lispro (Insulin Lispro 100 Unit/Ml 3 Ml Vial) 0 unit SUBCUT QIDACHS [facility]; Protocol Last Admin: 10/01/23 12:33 Dose: 8 unit Documented By: YVETTE Losartan Potassium (Losartan Potassium 50 Mg Tablet) 100 mg PO DAILY [facility]; Protocol Last Admin: 10/01/23 08:39 Dose: 100 mg Documented By: YVETTE Magnesium Hydroxide (Milk Of Magnesia 30 Ml Oral.Susp) 30 ml G-TUBE DAILY PRN PRN Reason: Constipation Omeprazole (Omeprazole/Na Bicarb Oral Susp 20 Mg/10 Ml Ud Cup) 20 mg PO DAILY@0630 [facility] Last Admin: 10/01/23 05:28 Dose: 20 mg Documented By: HORACE Ondansetron HCl (Ondansetron Hcl 4 Mg/2 Ml Vial) 4 mg IVPUSH Q8H PRN PRN Reason: Nausea and Vomiting Oxycodone HCl (Oxycodone Hcl Immed Release 5 Mg Tablet) 5 mg PO Q4H PRN PRN Reason: Pain, Severe (Pain Scale 7-10) Last Admin: 10/01/23 13:44 Dose: 5 mg Documented By: RAFAEL Polyethylene Glycol (Polyethylene Glycol 3350 17 Gm Powd.Pack) 17 gm PO DAILY [facility] Last Admin: 10/01/23 08:39 Dose: Not Given Documented By: YVETTE Non-Admin Reason: Patient Refused Sodium Chloride (0.9 % Sodium Chloride Flush 3 Ml Syringe) 3 ml IVFLUSH QSHIFT [facility] Last Admin: 10/01/23 08:37 Dose: Not Given Documented By: YVETTE Non-Admin Reason: No Access Sodium Hypochlorite (Sodium Hypochlorite 0.125% 473 Ml Solution) 1 appl TOPICAL DAILY [facility] Last Admin: 10/01/23 08:40 Dose: 1 appl Documented By: YVETTE Trimethoprim/Sulfamethoxazole (Sulfamethox/Trimeth 800/160 Tablet) 1 tab PO DAILY [facility] Last Admin: 10/01/23 08:40 Dose: 1 tab Documented By: YVETTE Labs 10/01/23 05:44 10/01/23 05:44 Labs: Laboratory Results - last 24 hr 09/30/23 09/30/23 10/01/23 16:32 20:59 05:44 MCV 91.0 MCH 32.9 MCHC 36.2 H RDW 13.7 Plt Count 390 MPV 11.1 Absolute Nucleated RBC 0.000 Nucleated RBC % (auto) 0.0 Anion Gap 11 L Estim Creat Clear Calc 24.6 Estimated GFR 42 POC Glucose 168 H 202 H Random Glucose 286 H Calcium 13.4 H* D 10/01/23 10/01/23 07:26 11:08 MCV MCH MCHC RDW Plt Count MPV Absolute Nucleated RBC Nucleated RBC % (auto) Anion Gap Estim Creat Clear Calc Estimated GFR POC Glucose 291 H 302 H Random Glucose Calcium Procedures Date of Service Date of Service: 10/01/23 Progress Note: A&P Assessment and plan (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 Tube feeds leaking from G tube site. The bolster was loose on exam and was tightened and 2cc saline was added to the balloon to help from leaking. Abdomen otherwise benign without evidence of G tube site infection. Continue current management. Time Spent With Patient Time: Total time managing care of this patient today ____ minutes. Quality Stroke Does the patient have a stroke diagnosis?: No VTE Prior VTE?: No VTE Risk Level:: Medical - moderate - high VTE Device Contraindication: Treatment Not Indicated VTE Drug Contraindication: N/A - Med Ordered
[2023-10-01 15:09] VITALS: BP 112/56; PULSE 84; RESP 16; TEMP 36.2; O2SAT 95
--- NOTE | 2023-10-01 15:38 | P.PNID_ITS ---
Subjective Subjective Date of Service: 10/01/23 Critical Care Time (minutes): 15 Comment: she feels better getting meds through [facility] Objective Data Labs 10/01/23 05:44 10/01/23 05:44 Labs: Laboratory Results - last 24 hr 09/30/23 09/30/23 10/01/23 16:32 20:59 05:44 WBC 29.5 H RBC 3.43 L Hgb 11.3 L Hct 31.2 L MCV 91.0 MCH 32.9 MCHC 36.2 H RDW 13.7 Plt Count 390 MPV 11.1 Absolute Nucleated RBC 0.000 Nucleated RBC % (auto) 0.0 Sodium 128 L Potassium 4.4 Chloride 96 Carbon Dioxide 25 Anion Gap 11 L BUN 15 Creatinine 1.27 Estim Creat Clear Calc 24.6 Estimated GFR 42 POC Glucose 168 H 202 H Random Glucose 286 H Calcium 13.4 H* D 10/01/23 10/01/23 07:26 11:08 WBC RBC Hgb Hct MCV MCH MCHC RDW Plt Count MPV Absolute Nucleated RBC Nucleated RBC % (auto) Sodium Potassium Chloride Carbon Dioxide Anion Gap BUN Creatinine Estim Creat Clear Calc Estimated GFR POC Glucose 291 H 302 H Random Glucose Calcium Microbiology Microbiology Results: Microbiology 09/23/23 14:48 Blood - Venous Blood Culture - Final No growth after 5 days. 09/23/23 14:28 Blood - Venous Blood Culture - Final No growth after 5 days. Physical Exam 2 Vital Signs: Vital Signs: Last Vital Signs Temp 97.2 F 10/01/23 15:09 Pulse 84 10/01/23 15:09 Resp 16 10/01/23 15:09 BP 112/56 L 10/01/23 15:09 Pulse Ox 95 10/01/23 15:09 O2 Del Method Room Air 10/01/23 15:09 O2 Flow Rate 96 09/27/23 07:40 BMI result Body Mass Index 20.2 Const: General: cooperative HEENT: Other: left facial mass Face and sinus: Yes normal facial exam Mouth: Normal oral and palatal mucosa present Teeth and gingiva: dentition normal Eyes: General: appearance normal, both eyes and all related structures P upils: Equal, round and reactive pupils present Resp: Effort & Inspection: normal respiratory effort Cardio: Rate: regular rate Rhythm: regular rhythm GI: Palpation (GI): Soft to palpation and nontender : General: Yes no CVA tenderness Back/Spine/Pelvis: Back: no CVA tenderness Skin: General skin exam: no rashes or lesions noted Neuro: General: moves all extremities Cranial nerves: Yes Equal, round and reactive pupils present Extrem: General: Yes normal to inspection Psych: Appearance: grossly normal Assessment and Plan Assessment and plan (1) AIDS: Problem details: She has CD4 count 125 and viral load undetectable on 09/23/ Status: Acute Plan Continue Biktarvy through [facility] (apparently able) rather than Triumeq. Would continue Bactrim as well until CD4 count over 200 for six months or maybe longer if undergoing chemotherapy/radiation. Time Spent With Patient Time: Total time managing care of this patient today ____ minutes.
--- NOTE | 2023-10-01 15:51 | MHC.CM.PN ---
checked again with f/s radames christopheriad letitia remains not processed
[2023-10-01 16:21] LABS: Glucose, Whole Blood 229 mg/dL (60-115)
[2023-10-01 20:00] VITALS: BP 108/58; PULSE 93; RESP 16; TEMP 36.3; O2SAT 95
[2023-10-01] MEDS: 0.9 % Sodium Chloride 500 ML IV (20:31)
[2023-10-01 20:49] LABS: Glucose, Whole Blood 234 mg/dL (60-115)
[2023-10-01] MEDS: Insulin Glargine,Hum.rec.anlog 100 UNIT/ML 10 ML VIAL 8 UNIT SUBCUT (21:01)
[2023-10-01] MEDS: Pamidronate Disodium 60 MG in 0.9 % Sodium Chloride 250 ML 130 MG IV (21:40)
[2023-10-02] MEDS: 0.9 % Sodium Chloride Flush 3 ML SYRINGE IVFLUSH ×3 (00:32→21:55)
[2023-10-02 03:22] VITALS: BP 121/61; PULSE 114; RESP 16; TEMP 36.1; O2SAT 95
[2023-10-02] MEDS: Omeprazole/Na Bicarb Oral Susp 20 MG/10 ML UD Cup PO (05:51)
[2023-10-02] MEDS: oxyCODONE HCl Immed Release 5 MG TABLET PO ×2 (06:05→11:04)
[2023-10-02 07:32] LABS: Glucose, Whole Blood 365 mg/dL (60-115)
[2023-10-02] MEDS: Insulin Lispro 100 UNIT/ML 3 ML VIAL SUBCUT ×4 (07:53→21:54)
[2023-10-02] MEDS: Heparin Sodium,Porcine 5,000 UNIT/ML VIAL 5000 UNIT SUBCUT ×2 (07:53→21:53)
[2023-10-02 07:54] VITALS: BP 121/61
[2023-10-02] MEDS: Atorvastatin Calcium 40 MG TABLET PO (07:54)
[2023-10-02] MEDS: Bictegrav/Emtricit/Tenofov Ala TABLET 1 TAB PO (07:54)
[2023-10-02] MEDS: Sulfamethox/Trimeth 800/160 TABLET 1 TAB PO (07:54)
[2023-10-02] MEDS: Losartan Potassium 50 MG TABLET 100 MG PO (07:54)
[2023-10-02 08:00] VITALS: BP 116/58; PULSE 106; RESP 13; TEMP 35.5; O2SAT 95
[2023-10-02] MEDS: Sodium Hypochlorite 0.125% 473 ML SOLUTION 1 APPL TOPICAL (08:03)
[2023-10-02 09:11] LABS: Anion Gap 13 (12-20); Blood Urea Nitrogen 14 mg/dL (9-16); Carbon Dioxide 21 mmol/L (22-29); Chloride 98 mmol/L (96-108); Creatinine Clr Calc Pharmacy 25.2; Estimated Glomerular Filt Rate 43; Potassium 4.5 mmol/L (3.3-5.1); Sodium 127 mmol/L (135-145)
[2023-10-02 09:16] LABS: Calcium 12.5 mg/dL (8.4-10.2); Glucose Random 367 mg/dL (60-115)
[2023-10-02 11:40] LABS: Glucose, Whole Blood 240 mg/dL (60-115)
--- NOTE | 2023-10-02 12:03 | MHC.CLN ---
NUTRITION PATIENT CONTINUES WITH LOW SODIUM. DELETED FLUSH 120 ML Q 8 HOURS. CONTINUE TO MONITOR LABS AND TUBE FEED TOLERANCE.
--- NOTE | 2023-10-02 13:47 | P.PNIM_ITS ---
Subjective Subjective Date of Service: 10/02/23 Interval History: Seen and examined this morning Seen in follow-up Reporting ongoing pain in the neck and around G-tube site No overnight events Review of Systems Review of Systems: Yes all other systems are reviewed and are negative Constitutional Constitutional: Denies fever(s) Physical Exam 2 Vital Signs: Vital Signs: Last Vital Signs Temp 96 F L 10/02/23 08:00 Pulse 106 H 10/02/23 08:00 Resp 13 10/02/23 08:00 BP 116/58 L 10/02/23 08:00 Pulse Ox 95 10/02/23 08:00 O2 Del Method Room Air 10/02/23 08:00 O2 Flow Rate 96 09/27/23 07:40 BMI result Body Mass Index 20.2 Const: Other: Constitutional-awake, alert, does not appear to be in any acute distress HEENT- large ulcerated mass involving left jaw/neck Cardiovascular-mild tachycardia GI abdomen soft, nondistended-feeding tube in place with no surrounding cellulitis MS - able to move all 4 extremities spontaneously Objective Data Active Medications Acetaminophen (Acetaminophen 325 Mg Tablet) 650 mg G-TUBE Q6H PRN PRN Reason: Pain, Mild (Pain Scale 1-3) Atorvastatin Calcium (Atorvastatin Calcium 40 Mg Tablet) 40 mg PO DAILY [facility] Last Admin: 10/02/23 07:54 Dose: 40 mg Documented By: HYACINTH Bictegravir/Emtricitabine/Tenofovir (Bictegrav/Emtricit/Tenofov Ala Tablet) 1 tab PO DAILY [facility] Last Admin: 10/02/23 07:54 Dose: 1 tab Documented By: HYACINTH Docusate Sodium (Docusate Sodium 100 Mg/10 Ml Liquid) 100 mg PO DAILY [facility] Last Admin: 10/02/23 07:55 Dose: Not Given Documented By: HYACINTH Non-Admin Reason: Patient Refused Fenofibrate (Fenofibrate 54 Mg Tablet) 54 mg PO DAILY [facility] Last Admin: 10/02/23 07:51 Dose: Not Given Documented By: HYACINTH Non-Admin Reason: cannot crush Glucose (Glucose Gel 15 Gm Gel..Gram.) 15 gm PO Q15M PRN; Protocol PRN Reason: per Hypoglycemia Standing Ord. Heparin Sodium (Porcine) (Heparin Sodium,Porcine 5,000 Unit/Ml Vial) 5,000 unit SUBCUT Q12H [facility] Last Admin: 10/02/23 07:53 Dose: 5,000 unit Documented By: HYACINTH Dextrose (D10) 250 mls @ 750 mls/hr IV Q15M PRN; Protocol PRN Reason: per Hypoglycemia Standing Ord. Insulin Glargine (Insulin Glargine,Hum.Rec.Anlog 100 Unit/Ml 10 Ml Vial) 10 unit SUBCUT BEDTIME [facility] Insulin Human Lispro (Insulin Lispro 100 Unit/Ml 3 Ml Vial) 0 unit SUBCUT QIDACHS [facility]; Protocol Last Admin: 10/02/23 12:03 Dose: 4 unit Documented By: HYACINTH Losartan Potassium (Losartan Potassium 50 Mg Tablet) 100 mg PO DAILY [facility]; Protocol Last Admin: 10/02/23 07:54 Dose: 100 mg Documented By: HYACINTH Magnesium Hydroxide (Milk Of Magnesia 30 Ml Oral.Susp) 30 ml G-TUBE DAILY PRN PRN Reason: Constipation Omeprazole (Omeprazole/Na Bicarb Oral Susp 20 Mg/10 Ml Ud Cup) 20 mg PO DAILY@0630 [facility] Last Admin: 10/02/23 05:51 Dose: 20 mg Documented By: ZEYAD Ondansetron HCl (Ondansetron Hcl 4 Mg/2 Ml Vial) 4 mg IVPUSH Q8H PRN PRN Reason: Nausea and Vomiting Oxycodone HCl (Oxycodone Hcl Immed Release 5 Mg Tablet) 5 mg PO Q4H PRN PRN Reason: Pain, Severe (Pain Scale 7-10) Last Admin: 10/02/23 11:04 Dose: 5 mg Documented By: HYACINTH Polyethylene Glycol (Polyethylene Glycol 3350 17 Gm Powd.Pack) 17 gm PO DAILY [facility] Last Admin: 10/02/23 07:55 Dose: Not Given Documented By: HYACINTH Non-Admin Reason: Patient Refused Sodium Chloride (0.9 % Sodium Chloride Flush 3 Ml Syringe) 3 ml IVFLUSH QSHIFT [facility] Last Admin: 10/02/23 07:55 Dose: 3 ml Documented By: HYACINTH Sodium Hypochlorite (Sodium Hypochlorite 0.125% 473 Ml Solution) 1 appl TOPICAL DAILY [facility] Last Admin: 10/02/23 08:03 Dose: 1 appl Documented By: HYACINTH Trimethoprim/Sulfamethoxazole (Sulfamethox/Trimeth 800/160 Tablet) 1 tab PO DAILY [facility] Last Admin: 10/02/23 07:54 Dose: 1 tab Documented By: HYACINTH Labs 10/01/23 05:44 10/02/23 08:39 Labs: Laboratory Results - last 24 hr 10/01/23 10/01/23 10/02/23 16:14 20:45 07:29 Anion Gap Estim Creat Clear Calc Estimated GFR POC Glucose 229 H 234 H 365 H* Random Glucose Calcium 10/02/23 10/02/23 08:39 11:30 Anion Gap 13 Estim Creat Clear Calc 25.2 Estimated GFR 43 POC Glucose 240 H Random Glucose 367 H* Calcium 12.5 H* D Assessment and Plan (1) AIDS: Status: Acute (2) HIV (human immunodeficiency virus infection): Status: Acute (3) 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 Hx of surgical removal of Left side mandible CT soft tissue neck shows large soft tissue masses involving mucosal surfaces throughout the head and neck and multiple extra mucosal soft tissue compartments with adenopathy and involvement of the overlying skin surface IV vancomycin and Zosyn stopped per ID, no infection Seen by Oncology, for advanced oropharyngeal cancer, this is outside the scope for agency, patient will need referral to [facility] and radiation oncology consultation upon discharge not amenable to surgical resection Continue local wound care Initially thought to have infected G-tube site with cellulitis and sepsis Seen by ID, no infection, white count is leukemoid reaction from cancer. Reevaluated by general surgery 09/30- no infection but leaking glucerna, advanced and balloon reinflated s/p Antibiotics Blood cultures negative to date Seen by surgery, G-tube not infected, normal drainage noted nutrition consult for tube feeds> glucerna 55ml/hr, free water 120Q8h , now not able to take po pureed --plan to decrease free water sodium is trending down (Bolus feed recommendations documented by nutrition for discharge, see note for details) acute on chronic Hypercalcemia Due to malignancy Received pamidronate / Down to 12.5, discussed with Oncology, will give additional dose of pamidronate Follow calcium PseudoHyponatremia Due to hyperglycemia Decrease free water flushes Follow-up BMP HIV continue Biktarvy CD4 count less than 200, daily Bactrim for prophylaxis (renally dosed) Hypomagnesemia improved with replacement acute/subacute rib fractures/L1 compression fracture s/p mechanical fall pain management p.r.n. DM2 with hyperglycemia Lantus at bedtime, will up titrate continue SSI glucerna for tube feedings HTN stable BP not on home bp meds HLD statin Moderate malnutrition. BMI 20.2 Gtube feeds and pureed diet DISPO [employer] application pending dvt prophylaxis- heparin Attending Dr. Jama full code per patient dispo - likely home with family as no pcp; CM following , awaiting If You Can approval so glucerna can be covered, otherwise cannot afford and not taking in much po Requires ongoing inpatient stay for invasive tumor of head/neck requiring expert consultation and in patient with HIV who has been noncompliant with anti- retroviral therapy and is immunocompromised, safe disposition and electrolyte monitoring Quality Stroke Does the patient have a stroke diagnosis?: No VTE Prior VTE?: No VTE Risk Level:: Medical - moderate - high VTE Device Contraindication: Treatment Not Indicated VTE Drug Contraindication: N/A - Med Ordered
[2023-10-02] MEDS: Pamidronate Disodium 60 MG in 0.9 % Sodium Chloride 250 ML 130 MG IV (14:27)
[2023-10-02] MEDS: oxyCODONE HCl Immed Release 5 MG TABLET 10 MG PO ×2 (15:13→21:53)
[2023-10-02 16:00] VITALS: BP 141/74; PULSE 88; RESP 13; TEMP 36.3; O2SAT 96
[2023-10-02 16:56] LABS: Glucose, Whole Blood 246 mg/dL (60-115)
[2023-10-02 17:04] VITALS: BP 141/74; PULSE 88; RESP 13; TEMP 36.3; O2SAT 96
[2023-10-02 19:37] VITALS: BP 115/57; PULSE 88; RESP 18; TEMP 36.4; O2SAT 98
[2023-10-02 20:14] LABS: Glucose, Whole Blood 203 mg/dL (60-115)
[2023-10-02] MEDS: Insulin Glargine,Hum.rec.anlog 100 UNIT/ML 10 ML VIAL 10 UNIT SUBCUT (21:54)
[2023-10-03] MEDS: oxyCODONE HCl Immed Release 5 MG TABLET 10 MG PO ×4 (01:51→20:09)
[2023-10-03 03:48] VITALS: BP 118/61; PULSE 100; RESP 16; TEMP 36.1; O2SAT 95
[2023-10-03] MEDS: Omeprazole/Na Bicarb Oral Susp 20 MG/10 ML UD Cup PO (06:01)
[2023-10-03 07:29] LABS: Glucose, Whole Blood 298 mg/dL (60-115)
[2023-10-03 07:41] LABS: Anion Gap 11 (12-20); Blood Urea Nitrogen 13 mg/dL (9-16); Calcium 13.2 mg/dL (8.4-10.2); Carbon Dioxide 22 mmol/L (22-29); Chloride 100 mmol/L (96-108); Creatinine Clr Calc Pharmacy 26.9; Estimated Glomerular Filt Rate 47; Glucose Random 289 mg/dL (60-115); Potassium 4.4 mmol/L (3.3-5.1); Sodium 129 mmol/L (135-145)
[2023-10-03 07:45] VITALS: BP 121/70; PULSE 108; RESP 15; TEMP 36.1; O2SAT 95
[2023-10-03] MEDS: Insulin Lispro 100 UNIT/ML 3 ML VIAL SUBCUT ×4 (07:46→21:25)
[2023-10-03] MEDS: Heparin Sodium,Porcine 5,000 UNIT/ML VIAL 5000 UNIT SUBCUT ×2 (07:47→20:03)
[2023-10-03] MEDS: 0.9 % Sodium Chloride Flush 3 ML SYRINGE IVFLUSH (07:47)
[2023-10-03] MEDS: Bictegrav/Emtricit/Tenofov Ala TABLET 1 TAB PO (07:52)
[2023-10-03] MEDS: Sulfamethox/Trimeth 400/80 TABLET 1 TAB PO (07:52)
[2023-10-03 07:53] VITALS: BP 121/70
[2023-10-03] MEDS: Losartan Potassium 50 MG TABLET 100 MG PO (07:53)
[2023-10-03] MEDS: Sodium Hypochlorite 0.125% 473 ML SOLUTION 1 APPL TOPICAL (07:54)
[2023-10-03] MEDS: Atorvastatin Calcium 40 MG TABLET PO (07:54)
--- NOTE | 2023-10-03 10:24 | PM.HEMONCPN ---
Medical Summary - Medical Summary Date of Service: 10/03/23 Chief complaint: Difficulty swallowing Primary Care Provider: None Physician Interval History Interval history: Sharlene Alanis is a 68 year old female who was diagnosed with left mandibular/head and neck cancer in [place] in January 2024. Patient moved to [place] 2 days ago, her daughter brought her to the emergency department yesterday since she noticed pus coming out of G-tube site. Leading to the patient, she 1st noticed ulcer over the gum of her left mandible around November 2023. She saw a dentist, this kept enlarging and finally in January she underwent biopsy. She was told that this was cancer. She had surgery in February. Subsequently she developed mass that continued to grow involve a large part of her left lower face. She says she had another surgery about 2 weeks ago. After the 2nd surgery she had difficulty coming out of anesthesia, she needed 2 units blood transfusion. She states that she never received any chemotherapy or radiation treatment in [place]. She has longstanding HIV, she has been unable to take her anti-retroviral therapy because of difficulty swallowing in the last 2 weeks. Patient has discomfort from the tumor, she reports loss of appetite and weight loss. She had a feeding tube/G-tube placed 2 weeks ago. She is now going to live with her daughter in [place]. She is inquiring about treatment of her cancer. She is an ex-smoker. She does not consume alcohol. She is tolerating tube feeds well. Denies any fever or chills. Review of Systems - Neurologic Reports weakness PMFSH Medical History: Medical History (Last Updated 10/01/23 @ 15:39 by Luz Covarrubias MD) AIDS Cancer of head and neck Dysphagia HIV (human immunodeficiency virus infection) HLD (hyperlipidemia) HTN (hypertension) Hypercalcemia Leukocytosis Type 2 diabetes mellitus Family history: reviewed and not pertinent Social History: Social History (Last Reviewed 09/24/23 @ 16:25 by Luz Covarrubias MD) Living Situation History: Household Members: None Housing: Apartment Do you presently have visiting nurse or other home services: No Tobacco History: Patient Tobacco Use Status: Former Tobacco user Occupation Assessmet: service: No Home Medications and Allergies Current Medications: Current Medications Acetaminophen (Acetaminophen 325 Mg Tablet) 650 mg G-TUBE Q6H PRN PRN Reason: Pain, Mild (Pain Scale 1-3) Atorvastatin Calcium (Atorvastatin Calcium 40 Mg Tablet) 40 mg PO DAILY [facility] Last Admin: 10/03/23 07:54 Dose: 40 mg Bictegravir/Emtricitabine/Tenofovir (Bictegrav/Emtricit/Tenofov Ala Tablet) 1 tab PO DAILY [facility] Last Admin: 10/03/23 07:52 Dose: 1 tab Docusate Sodium (Docusate Sodium 100 Mg/10 Ml Liquid) 100 mg PO DAILY [facility] Last Admin: 10/03/23 07:54 Dose: Not Given Fenofibrate (Fenofibrate 54 Mg Tablet) 54 mg PO DAILY [facility] Last Admin: 10/03/23 07:53 Dose: Not Given Glucose (Glucose Gel 15 Gm Gel..Gram.) 15 gm PO Q15M PRN; Protocol PRN Reason: per Hypoglycemia Standing Ord. Heparin Sodium (Porcine) (Heparin Sodium,Porcine 5,000 Unit/Ml Vial) 5,000 unit SUBCUT Q12H [facility] Last Admin: 10/03/23 07:47 Dose: 5,000 unit Dextrose (D10) 250 mls @ 750 mls/hr IV Q15M PRN; Protocol PRN Reason: per Hypoglycemia Standing Ord. Insulin Glargine (Insulin Glargine,Hum.Rec.Anlog 100 Unit/Ml 10 Ml Vial) 10 unit SUBCUT BEDTIME [facility] Last Admin: 10/02/23 21:54 Dose: 10 unit Insulin Human Lispro (Insulin Lispro 100 Unit/Ml 3 Ml Vial) 0 unit SUBCUT QIDACHS [facility]; Protocol Last Admin: 10/03/23 07:46 Dose: 6 unit Losartan Potassium (Losartan Potassium 50 Mg Tablet) 100 mg PO DAILY [facility]; Protocol Last Admin: 10/03/23 07:53 Dose: 100 mg Magnesium Hydroxide (Milk Of Magnesia 30 Ml Oral.Susp) 30 ml G-TUBE DAILY PRN PRN Reason: Constipation Omeprazole (Omeprazole/Na Bicarb Oral Susp 20 Mg/10 Ml Ud Cup) 20 mg PO DAILY@0630 [facility] Last Admin: 10/03/23 06:01 Dose: 20 mg Ondansetron HCl (Ondansetron Hcl 4 Mg/2 Ml Vial) 4 mg IVPUSH Q8H PRN PRN Reason: Nausea and Vomiting Oxycodone HCl (Oxycodone Hcl Immed Release 5 Mg Tablet) 10 mg PO Q4H PRN PRN Reason: Pain, Severe (Pain Scale 7-10) Last Admin: 10/03/23 06:03 Dose: 10 mg Polyethylene Glycol (Polyethylene Glycol 3350 17 Gm Powd.Pack) 17 gm PO DAILY [facility] Last Admin: 10/03/23 07:54 Dose: Not Given Sodium Chloride (0.9 % Sodium Chloride Flush 3 Ml Syringe) 3 ml IVFLUSH QSHIFT [facility] Last Admin: 10/03/23 07:47 Dose: 3 ml Sodium Hypochlorite (Sodium Hypochlorite 0.125% 473 Ml Solution) 1 appl TOPICAL DAILY [facility] Last Admin: 10/03/23 07:54 Dose: 1 appl Trimethoprim/Sulfamethoxazole (Sulfamethox/Trimeth 400/80 Tablet) 1 tab PO DAILY [facility] Last Admin: 10/03/23 07:52 Dose: 1 tab Home Medications ?Medication ?Instructions ?Recorded ?Confirmed ?Type atorvastatin 40 mg tablet 40 mg PO DAILY 09/23/23 09/23/23 History empagliflozin 25 mg-linagliptin 5 1 tab PO QAM 09/23/23 09/23/23 History mg tablet (Glyxambi) fenofibrate 160 mg tablet 160 mg PO DAILY 09/23/23 09/23/23 History losartan 100 mg tablet 100 mg PO DAILY 09/23/23 09/23/23 History omeprazole 40 mg capsule,delayed 40 mg PO DAILY 09/23/23 09/23/23 History release Allergies Allergy/AdvReac Type Severity Reaction Status Date / Time No Known Allergies Allergy Verified 09/23/23 12:09 [No Known Allergies*] Exam Vital signs: Vital Signs Temp 97 F 10/03/23 07:45 Pulse 108 H 10/03/23 07:45 Resp 15 10/03/23 07:45 BP 121/70 10/03/23 07:53 Pulse Ox 95 10/03/23 07:45 O2 Del Method Room Air 10/03/23 07:45 O2 Flow Rate 96 09/27/23 07:40 Intake & Output 10/02/23 10/03/23 10/03/23 18:59 06:59 18:59 Intake Total 1460 / 1460 Output Total Balance 1459 / 1459 Intake: Intake, Oral Amount 1200 / 1200 Intake, IV Amount 260 / 260 Pamidronate Disodium 60 mg In 0 260 / 260 .9 % Sodium Chloride 250 ml @ 130 mls/hr IV ONCE ONE Rx#: [id number] Output: Output, Stool Amount Other: Meal Refused No NPO No Yes Breakfast % Eaten 25% Lunch % Eaten 0% Dinner % Eaten 0% Eating (Feeding) Ability Independent Number of Incontinent Voids 1 Number of Unmeasured Voids 3 1 Urine Bedside Commode Bedside Commode Urine Color Yellow Stool Bedside Commode Stool Color Dark Brown Stool Consistency Frothy Weight 40.823 kg BMI result Body Mass Index 20.2 - Constitutional Present: mild distress, thin - Routine HEENT Exam Head: Present: facial swelling - Routine Neck Exam Present: full ROM - Routine Respiratory Exam Present: CTAB - Routine Cardiovascular Exam Cardiovascular: Present: S1, S2 Data - Labs CBC & Chem 7: 10/01/23 05:44 10/03/23 06:14 Labs: Laboratory Last Values WBC 29.5 X10*3/uL (4.8-10.8) H 10/01/23 05:44 RBC 3.43 X10*6/uL (4.20-5.50) L 10/01/23 05:44 Hgb 11.3 g/dl (12.0-16.0) L 10/01/23 05:44 Hct 31.2 % (37.0-47.0) L 10/01/23 05:44 MCV 91.0 fL (80.0-98.0) 10/01/23 05:44 MCH 32.9 pg (27.0-33.0) 10/01/23 05:44 MCHC 36.2 g/dl (31.0-35.0) H 10/01/23 05:44 RDW 13.7 % (11.0-16.0) 10/01/23 05:44 Plt Count 390 X10*3/uL (160-400) 10/01/23 05:44 MPV 11.1 fL (9.4-12.3) 10/01/23 05:44 Immature Gran % (Auto) 1.1 % (0.0-0.4) H 09/27/23 05:15 Neut % (Auto) 90.3 % (45-73) H 09/27/23 05:15 Lymph % (Auto) 2.8 % (20-40) L 09/27/23 05:15 Ross % (Auto) 4.3 % (2-11) 09/27/23 05:15 Eos % (Auto) 1.3 % (0-4) 09/27/23 05:15 Baso % (Auto) 0.2 % (0-2) 09/27/23 05:15 Lymph # (Auto) 0.7 X10*3/uL (1.2-4.9) L 09/27/23 05:15 Ross # (Auto) 1.1 X10*3/uL (0.1-1.2) 09/27/23 05:15 Eos # (Auto) 0.3 X10*3/uL (0.0-0.4) 09/27/23 05:15 Baso # (Auto) 0.1 X10*3/uL (0.0-0.2) 09/27/23 05:15 Abs Immat Gran (auto) 0.28 X10*3/uL (0.00-0.03) H 09/27/23 05:15 Absolute Neuts (auto) 23.2 x10*3/uL (2.0-8.3) H 09/27/23 05:15 Absolute Nucleated RBC 0.000 X10*3/uL (0.0-0.012) 10/01/23 05:44 Nucleated RBC % (auto) 0.0 /100WBC (0.0-0.2) 10/01/23 05:44 Smear Tech's Comments VERIFIED 09/27/23 05:15 ESR 92 MM/HR (0-20) H 09/23/23 14:48 Hold Purple Top SEE NOTE 10/03/23 06:14 VBG pH 7.44 (7.32-7.43) H 09/23/23 14:49 VBG pCO2 38 mmHg 09/23/23 14:49 VBG pO2 43 mmHg 09/23/23 14:49 VBG HCO3 26 mmol/L (22-26) 09/23/23 14:49 VBG O2 Saturation 74.0 % 09/23/23 14:49 VBG Base Excess 2.6 mmol/L 09/23/23 14:49 Sodium 129 mmol/L (135-145) L 10/03/23 06:14 Potassium 4.4 mmol/L (3.3-5.1) 10/03/23 06:14 Chloride 100 mmol/L (96-108) 10/03/23 06:14 Carbon Dioxide 22 mmol/L (22-29) 10/03/23 06:14 Anion Gap 11 (12-20) L 10/03/23 06:14 BUN 13 mg/dL (9-16) 10/03/23 06:14 Creatinine 1.16 mg/dL (0.5-1.4) 10/03/23 06:14 Estim Creat Clear Calc 26.9 10/03/23 06:14 Estimated GFR 47 10/03/23 06:14 POC Glucose 298 mg/dL (60-115) H 10/03/23 07:17 Random Glucose 289 mg/dL (60-115) H 10/03/23 06:14 Lactic Acid 1.6 mmol/L (0.5-2.0) 09/23/23 14:28 Calcium 13.2 mg/dL (8.4-10.2) H* 10/03/23 06:14 Magnesium 1.7 mg/dL (1.6-2.6) 09/26/23 05:50 Total Bilirubin 0.5 mg/dL (0.0-1.0) 09/23/23 12:18 AST 24 U/L (5-31) 09/23/23 12:18 ALT 8 U/L (0-31) 09/23/23 12:18 Alkaline Phosphatase 127 U/L (39-117) H 09/23/23 12:18 C-Reactive Protein 7.64 mg/dL (< or = 0.50) H 09/23/23 14:48 Total Protein 8.6 g/dL (6.5-8.0) H 09/23/23 12:18 Albumin 3.5 g/dL (3.5-5.0) 09/23/23 12:18 Lipase 65 U/L (8-78) 09/23/23 12:18 Beta-Hydroxybutyrate 0.68 mmol/L (0.02-0.27) H 09/23/23 12:18 Urine Osmolality 192 mosm/kg (373-1093) L 09/23/23 20:43 Ur Random Sodium 46.0 mmol/L 09/23/23 20:43 Urine Creatinine 7.63 mg/dL 09/23/23 20:43 Lymphocyte Subset Cmmnt TNP 09/23/23 14:48 Total Lymphocytes 710 cells/uL (850-3900) L 09/23/23 14:48 % CD3 Cells 70 % (57-85) 09/23/23 14:48 Absolute CD3 Count 495 cells/uL (840-3060) L 09/23/23 14:48 % CD4 Cells 18 % (30-61) L 09/23/23 14:48 Absolute CD4 Count 125 cells/uL (490-1740) L 09/23/23 14:48 CD4/CD8 Ratio 0.34 (0.86-5.00) L 09/23/23 14:48 % CD8 Cells 52 % (12-42) H 09/23/23 14:48 Absolute CD8 Count 372 cells/uL (180-1170) 09/23/23 14:48 HIV-1 RNA copies/mL NOT DETECTED copies/mL (NOT DETECTED) 09/24/23 18:01 HIV-1 RNA logcopies/mL NOT DETECTED (NOT DETECTED) 09/24/23 18:01 Influenza Type A (PCR) NEGATIVE (Negative) 09/23/23 17:19 Influenza Type B (PCR) NEGATIVE (Negative) 09/23/23 17:19 RSV RNA Qual (PCR) NEGATIVE (Negative) 09/23/23 17:19 SARS-CoV-2 RNA (RT-PCR) NEGATIVE (Negative) 09/23/23 17:19 - Imaging Radiologist's impression: ITS Impressions Lumbar Spine X-Ray 09/23/23 13:18 IMPRESSION: 1. Superior endplate compression deformity at L1 with 50 percent loss of vertebral body height is new as compared to 2019 and possibly acute. 2. Moderate multilevel degenerative spondylosis. 3. Moderate right convex lumbar scoliosis. 4. Osteopenia. Chest CT 09/23/23 16:03 IMPRESSION: Right posterior 11th and 12th and left posterior 10th rib fractures that appear acute. Old ununited left posterior 10th rib fracture. Stable scarring and bronchiectasis in the right upper lobe. Nondisplaced fracture of the right L1 transverse process and L1 compression fracture, acute, described in abdominal and pelvic CT report. Fleischner guidelines were followed. Soft Tissue Neck CT 09/23/23 16:05 IMPRESSION: Large soft tissue mass as described involving mucosal surfaces throughout the head and neck and multiple extra-mucosal soft tissue compartments with adenopathy and involvement of the overlying skin surface. Spiculated 0.5 cm subpleural nodule in the right upper lobe with adjacent scarring. Emphysematous changes. Thoracic findings further described on the patient's dedicated chest CT exam acquired contemporaneously on the same day. 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 Abdomen/Pelvis CT 09/23/23 16:13 IMPRESSION: Moderate recent appearing L1 vertebral body compression fracture. Mild bilateral hydronephrosis and ureteral dilatation. The bladder is well-distended and this may be secondary to bladder distention. Differential would include reflux. G-tube in the stomach in satisfactory position. Question wall thickening of the distal stomach/antrum. Fleischner guidelines were followed. Assessment and Plan Patient Active problem list reviewed?: Yes (1) Squamous cell carcinoma of mouth Status: Acute Assessment and plan: 1. 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 Review of few records from [place] revealed that she had a biopsy on 02/11/2023 of left mandible bone segment with superior gum tumor biopsy: Squamous cell carcinoma, moderately differentiated invading into the skeletal muscle with the tumor lytic thickness of at least 6 mm, measuring 3 cm in greatest dimension. Bone invasion not identified. She was staged as AJCC pT2 pNX. According to patient and her daughter, she underwent local resection but no radiation or systemic therapy. She had regrowth of the tumor, CT neck performed 06/03/2023 at [facility] revealed postsurgical changes in the left mandible. There was evidence of surgical removal of left side of mandible from left anterior mandible into the mandibular angle which still remains and the coronoid process is still present. Large enhancing multilobulated mass measuring 3.4 x 1.8 x 4.8 cm suspicious for malignancy in the left mandibular area. Contains multiple areas of necrosis involving the left masseter muscle. Mass is abutting left mandibular gland and invading left submandibular gland. Apparently she had a reexcision a few weeks ago in [place]. She has had a feeding tube placed she is having difficulty eating food although she is still able to swallow pills. Imaging with CT neck, chest, abdomen and pelvis at [facility] 09/23/2023 reveals large soft tissue mass with cystic/necrotic components involving multiple facial complaints. Tumor is present throughout the left oropharyngeal wall, left glossotonsillar sulcus, floor of mouth extending across midline, involvement of left lateral tongue. Tumor infiltrates into left lateral aspect of soft palate, left retromolar trigone and pterygomandibular raphe. Multinodular tumor extends into skin surface in the submental space and left anterior cervical space. Tumor infiltrates into and around the left sternocleidomastoid muscle as well. Potential spread of tumor into left prevertebral soft tissue at the level of the Uvula. Partial thrombosis due to compression versus tumoral infiltration of left internal jugular vein. The left styloid process is engulfed by tumor as his left parotid gland. Imaged mediastinum appears normal. CT chest/abdomen and pelvis showed evidence of metastatic disease. Patient is now here, living with her daughter. Patient and daughter are now seeking oncology care here. Typically, for such advanced oropharyngeal cancers, current chemoradiation therapy or induction chemotherapy is administered in-patient setting. This is outside scope of [facility]. Patient will need referral to [facility], she will need Radiation Oncology consultation as well. 2. Hypercalcemia of malignancy. She received pamidronate IV x2 doses. IV fluids and continue to monitor. - Time Spent With Patient Time Spent with Patient (in minutes): 10
[2023-10-03 10:59] LABS: Albumin Level 3.1 g/dL (3.5-5.0)
--- NOTE | 2023-10-03 11:10 | MHC.CLN ---
F/U DIET RX:[facility]REE CONSISTENCY PO INTAKE VARIABLE REVIEWED LABS-NOTED SERUM NA REMAINS 129 TUBE FEEDING RUNNING: GLUCERNA AT MAX GOAL RATE 55 ML PER HOUR PROVIDES 1320 KCALS (32.4 KCALS/KG), 55 G PROTEIN (1.35 G/KG), 1125ML FREE WATER FROM FORMULA FREE WATER FLUSHES ON HOLD CONTINUE TO FOLLOW FOR PO INTAKE, TUBE FEED TOLERANCE, AND LYTES RD CAN BE REACHED VIA TIGER CONNECT DURING OFF HOURS IF NEEDED
[2023-10-03 11:36] LABS: Glucose, Whole Blood 195 mg/dL (60-115)
[2023-10-03 13:45] VITALS: BP 121/70
--- NOTE | 2023-10-03 14:13 | HO.PM.IMPN ---
Subjective Subjective Date of Service: 10/03/23 Interval History: Seen and examined this morning Follow-up for hypercalcemia, head/neck cancer Pain better controlled with increased dose of oxycodone Tolerating tube feeds Review of Systems Review of Systems: Yes all other systems are reviewed and are negative Constitutional Constitutional: Denies fever(s) Cardiovascular Cardiovascular: Denies chest pain and Denies dyspnea Respiratory Respiratory: Denies dyspnea Physical Exam Vital Signs: Vital Signs: Last Vital Signs Temp 97 F 10/03/23 07:45 Pulse 108 H 10/03/23 07:45 Resp 15 10/03/23 07:45 BP 121/70 10/03/23 13:45 Pulse Ox 95 10/03/23 07:45 O2 Del Method Room Air 10/03/23 07:45 O2 Flow Rate 96 09/27/23 07:40 BMI result Body Mass Index 20.2 Const: Other: Constitutional-awake, alert, does not appear to be in any acute distress HEENT- large ulcerated mass involving left jaw/neck Cardiovascular-mild tachycardia GI abdomen soft, nondistended-feeding tube in place with no surrounding cellulitis MS - able to move all 4 extremities spontaneously Objective Data Active Medications Acetaminophen (Acetaminophen 325 Mg Tablet) 650 mg G-TUBE Q6H PRN PRN Reason: Pain, Mild (Pain Scale 1-3) Atorvastatin Calcium (Atorvastatin Calcium 40 Mg Tablet) 40 mg PO DAILY [facility] Last Admin: 10/03/23 07:54 Dose: 40 mg Documented By: HYACINTH Bictegravir/Emtricitabine/Tenofovir (Bictegrav/Emtricit/Tenofov Ala Tablet) 1 tab PO DAILY [facility] Last Admin: 10/03/23 07:52 Dose: 1 tab Documented By: HYACINTH Docusate Sodium (Docusate Sodium 100 Mg/10 Ml Liquid) 100 mg PO DAILY [facility] Last Admin: 10/03/23 07:54 Dose: Not Given Documented By: HYACINTH Non-Admin Reason: Patient Refused Glucose (Glucose Gel 15 Gm Gel..Gram.) 15 gm PO Q15M PRN; Protocol PRN Reason: per Hypoglycemia Standing Ord. Heparin Sodium (Porcine) (Heparin Sodium,Porcine 5,000 Unit/Ml Vial) 5,000 unit SUBCUT Q12H [facility] Last Admin: 10/03/23 07:47 Dose: 5,000 unit Documented By: HYACINTH Dextrose (D10) 250 mls @ 750 mls/hr IV Q15M PRN; Protocol PRN Reason: per Hypoglycemia Standing Ord. Insulin Glargine (Insulin Glargine,Hum.Rec.Anlog 100 Unit/Ml 10 Ml Vial) 10 unit SUBCUT BEDTIME [facility] Last Admin: 10/02/23 21:54 Dose: 10 unit Documented By: ZEYAD Insulin Human Lispro (Insulin Lispro 100 Unit/Ml 3 Ml Vial) 0 unit SUBCUT QIDACHS [facility]; Protocol Last Admin: 10/03/23 11:48 Dose: 2 unit Documented By: HYACINTH Losartan Potassium (Losartan Potassium 50 Mg Tablet) 100 mg PO DAILY [facility]; Protocol Last Admin: 10/03/23 07:53 Dose: 100 mg Documented By: HYACINTH Magnesium Hydroxide (Milk Of Magnesia 30 Ml Oral.Susp) 30 ml G-TUBE DAILY PRN PRN Reason: Constipation Omeprazole (Omeprazole/Na Bicarb Oral Susp 20 Mg/10 Ml Ud Cup) 20 mg PO DAILY@0630 [facility] Last Admin: 10/03/23 06:01 Dose: 20 mg Documented By: ZEYAD Ondansetron HCl (Ondansetron Hcl 4 Mg/2 Ml Vial) 4 mg IVPUSH Q8H PRN PRN Reason: Nausea and Vomiting Oxycodone HCl (Oxycodone Hcl Immed Release 5 Mg Tablet) 10 mg PO Q4H PRN PRN Reason: Pain, Severe (Pain Scale 7-10) Last Admin: 10/03/23 11:48 Dose: 10 mg Documented By: HYACINTH Polyethylene Glycol (Polyethylene Glycol 3350 17 Gm Powd.Pack) 17 gm PO DAILY [facility] Last Admin: 10/03/23 07:54 Dose: Not Given Documented By: HYACINTH Non-Admin Reason: Patient Refused Sodium Chloride (0.9 % Sodium Chloride Flush 3 Ml Syringe) 3 ml IVFLUSH QSHIFT [facility] Last Admin: 10/03/23 07:47 Dose: 3 ml Documented By: HYACINTH Sodium Hypochlorite (Sodium Hypochlorite 0.125% 473 Ml Solution) 1 appl TOPICAL DAILY [facility] Last Admin: 10/03/23 07:54 Dose: 1 appl Documented By: HO.PARROWA Trimethoprim/Sulfamethoxazole (Sulfamethox/Trimeth 400/80 Tablet) 1 tab PO DAILY [facility] Last Admin: 10/03/23 07:52 Dose: 1 tab Documented By: HYACINTH Labs 10/01/23 05:44 10/03/23 06:14 Labs: Laboratory Results - last 24 hr 10/02/23 10/02/23 10/03/23 16:49 20:02 06:14 Hold Purple Top SEE NOTE Anion Gap 11 L Estim Creat Clear Calc 26.9 Estimated GFR 47 POC Glucose 246 H 203 H Random Glucose 289 H Calcium 13.2 H* Albumin 3.1 L 10/03/23 10/03/23 07:17 11:15 Hold Purple Top Anion Gap Estim Creat Clear Calc Estimated GFR POC Glucose 298 H 195 H Random Glucose Calcium Albumin Assessment and Plan (1) AIDS: Status: Acute (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 Hx of surgical removal of Left side mandible CT soft tissue neck shows large soft tissue masses involving mucosal surfaces throughout the head and neck and multiple extra mucosal soft tissue compartments with adenopathy and involvement of the overlying skin surface IV vancomycin and Zosyn stopped per ID, no infection Seen by Oncology, for advanced oropharyngeal cancer, this is outside the scope for [facility], patient will need referral to [facility] and radiation oncology consultation upon discharge not amenable to surgical resection Continue local wound care, seen by wound care nurse Initially thought to have infected G-tube site with cellulitis and sepsis Seen by ID, no infection, white count is leukemoid reaction from cancer. Reevaluated by general surgery 09/30- no infection but leaking glucerna, advanced and balloon reinflated s/p Antibiotics Blood cultures negative to date nutrition consult for tube feeds> glucerna 55ml/hr, free water 120Q8h , now not able to take po pureed --plan to decrease free water sodium is trending down (Bolus feed recommendations documented by nutrition for discharge, see note for details) acute on chronic Hypercalcemia Due to malignancy Received pamidronate 09/30, 10/01 calcium still elevated, no further pamidronate indicated for 7 days. no calcitonin available. checking with pharmacy availability of zometa or prolia. nephrology consult start IVF check PTH will discuss with oncology follow calcium levels PseudoHyponatremia Due to hyperglycemia Decrease free water flushes improving 129 HIV continue Biktarvy - renal function borderline, may need to consider alternative. will discuss with ID. minimal choices on formulary that can also go through feeding tube. CD4 count less than 200, daily Bactrim for prophylaxis (renally dosed) Hypomagnesemia improved with replacement acute/subacute rib fractures/L1 compression fracture s/p mechanical fall pain management p.r.n. DM2 with hyperglycemia Lantus at bedtime, will up titrate to 10U continue SSI glucerna for tube feedings HTN stable BP not on home bp meds HLD statin Moderate malnutrition. BMI 20.2 Gtube feeds and pureed diet DISPO CDEL application pending dvt prophylaxis- heparin Attending Dr. Jama full code per patient dispo - likely home with family as no pcp; CM following , awaiting [employer] approval so glucerna can be covered, otherwise cannot afford and not taking in much po Requires ongoing inpatient stay for invasive tumor of head/neck requiring expert consultation and in patient with HIV who has been noncompliant with anti-retroviral therapy and is immunocompromised, safe disposition and electrolyte monitoring Quality Stroke Does the patient have a stroke diagnosis?: No VTE Prior VTE?: No VTE Risk Level:: Medical - moderate - high VTE Device Contraindication: Treatment Not Indicated VTE Drug Contraindication: N/A - Med Ordered
--- NOTE | 2023-10-03 14:26 | MHC.CM.PN ---
Patient is not ready to discharge today. Barrier is insurance. [facility] Financial hospitalist program director has been consulted. [facility] application has not been processed. CM will follow.
[2023-10-03] MEDS: 0.9 % Sodium Chloride 1,000 ML 80 ML IVCONT (14:54)
[2023-10-03 16:00] VITALS: BP 124/64; PULSE 96; RESP 14; TEMP 36.1; O2SAT 96
[2023-10-03 16:27] LABS: Glucose, Whole Blood 251 mg/dL (60-115)
[2023-10-03 16:57] LABS: Parathyroid Hormone Intact 10.5 pg/mL (8.7-77.1)
--- NOTE | 2023-10-03 19:35 | PM.CNNEP ---
History of Present Illness Reason for Consult Consult date: 10/03/23 Reason for consult: Hypercalcemia Chief Complaint Chief complaint: infected g-tube, extensive throat/neck cancer History of Present Illness Narrative: 68-year-old female with a past medical history of hypercalcemia, throat cancer, HTN, HLD, diabetes, dysphagia, HIV (noncompliant on meds x weeks), presented to the ER due to anorexia, low back/rib pain s/p mechanical fall a few weeks ago, infected G-tube, and worsening jaw cancer from [place]. Patient states she was recently admitted to hospital in [place] due to inability to tolerate p.o., had G-tube placed at that time, and also sustained mechanical fall during visit onto back. patient and her daughter report she underwent resection of the gums and left jaw in November 2022 and was seen by oncology. Reports biopsy in january was negative for malignancy. She then developed lesions on the left cheek and again underwent excision. She was then told she has cancer of the ?jaw and that there was no chemo or radiation treatment available for her. She has developed progressive dysphagia and anorexia and was recently hospitalized in [facility] in the last few weeks and had g tube placed.. She has been tolerating pureed diet and thin liquids but still does not take in much PO. She has also noted some purulent drainage from the site of the g tube insertion. At admission her Creat 1.27 with calcium 12.1 Lumbar spine x-ray shows superior endplate compression deformity at L1 with 50% loss of vertebral body height as well as multilevel degenerative changes and complex lumbar scoliosis as well as osteopenia. Shows right posterior 11th and 12th and left posterior 10th rib fractures, possibly acute versus subacute with stable scarring and bronchiectasis in the right upper lobe. CT abdomen/pelvis shows again the L1 vertebral body compression fracture as well as mild bilateral hydronephrosis and ureteral dilatation possibly related to bladder distention. G-tube in the stomach is in satisfactory position. CT soft tissue neck shows large soft tissue mass involving mucosal surfaces throughout the head and neck and multiple extra mucosal soft tissue compartments with adenopathy and involvement of the overlying skin surface. 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 She was admitted for further management. During the course of hospital stay she received sodium palmidronate 120 mg. Her serum calcium continued to be high. Nephrology has been consulted to assist in her clinical management during her hospital stay Review of Systems Review of Systems Yes all other systems are reviewed and are negative [facility] Past Medical History Medical History (Updated 10/03/23 @ 19:42 by Jaswant Mcfarlane MD) AIDS Leukocytosis Hypercalcemia Dysphagia HLD (hyperlipidemia) HTN (hypertension) HIV (human immunodeficiency virus infection) Type 2 diabetes mellitus Cancer of head and neck Family History Family history: reviewed and not pertinent Social History Social History Household Members: None Housing: Apartment Do you presently have visiting nurse or other home services: No Patient Tobacco Use Status: Former Tobacco user service: No Meds Allergies Allergy/AdvReac Type Severity Reaction Status Date / Time No Known Allergies Allergy Verified 09/23/23 12:09 [No Known Allergies*] Active Medications: Current Medications Acetaminophen (Acetaminophen 325 Mg Tablet) 650 mg G-TUBE Q6H PRN PRN Reason: Pain, Mild (Pain Scale 1-3) Atorvastatin Calcium (Atorvastatin Calcium 40 Mg Tablet) 40 mg PO DAILY [facility] Last Admin: 10/03/23 07:54 Dose: 40 mg Bictegravir/Emtricitabine/Tenofovir (Bictegrav/Emtricit/Tenofov Ala Tablet) 1 tab PO DAILY [facility] Last Admin: 10/03/23 07:52 Dose: 1 tab Docusate Sodium (Docusate Sodium 100 Mg/10 Ml Liquid) 100 mg PO DAILY [facility] Last Admin: 10/03/23 07:54 Dose: Not Given Glucose (Glucose Gel 15 Gm Gel..Gram.) 15 gm PO Q15M PRN; Protocol PRN Reason: per Hypoglycemia Standing Ord. Heparin Sodium (Porcine) (Heparin Sodium,Porcine 5,000 Unit/Ml Vial) 5,000 unit SUBCUT Q12H [facility] Last Admin: 10/03/23 07:47 Dose: 5,000 unit Dextrose (D10) 250 mls @ 750 mls/hr IV Q15M PRN; Protocol PRN Reason: per Hypoglycemia Standing Ord. Sodium Chloride (Ns) 1,000 mls @ 100 mls/hr IVCONT .Q10H [facility] Last Infusion: 10/03/23 14:59 Dose: 100 mls/hr Insulin Glargine (Insulin Glargine,Hum.Rec.Anlog 100 Unit/Ml 10 Ml Vial) 10 unit SUBCUT BEDTIME [facility] Last Admin: 10/02/23 21:54 Dose: 10 unit Insulin Human Lispro (Insulin Lispro 100 Unit/Ml 3 Ml Vial) 0 unit SUBCUT QIDACHS [facility]; Protocol Last Admin: 10/03/23 17:05 Dose: 6 unit Losartan Potassium (Losartan Potassium 50 Mg Tablet) 100 mg PO DAILY [facility]; Protocol Last Admin: 10/03/23 07:53 Dose: 100 mg Magnesium Hydroxide (Milk Of Magnesia 30 Ml Oral.Susp) 30 ml G-TUBE DAILY PRN PRN Reason: Constipation Omeprazole (Omeprazole/Na Bicarb Oral Susp 20 Mg/10 Ml Ud Cup) 20 mg PO DAILY@0630 [facility] Last Admin: 10/03/23 06:01 Dose: 20 mg Ondansetron HCl (Ondansetron Hcl 4 Mg/2 Ml Vial) 4 mg IVPUSH Q8H PRN PRN Reason: Nausea and Vomiting Oxycodone HCl (Oxycodone Hcl Immed Release 5 Mg Tablet) 10 mg PO Q4H PRN PRN Reason: Pain, Severe (Pain Scale 7-10) Last Admin: 10/03/23 11:48 Dose: 10 mg Polyethylene Glycol (Polyethylene Glycol 3350 17 Gm Powd.Pack) 17 gm PO DAILY [facility] Last Admin: 10/03/23 07:54 Dose: Not Given Sodium Chloride (0.9 % Sodium Chloride Flush 3 Ml Syringe) 3 ml IVFLUSH QSHIFT [facility] Last Admin: 10/03/23 15:00 Dose: Not Given Sodium Hypochlorite (Sodium Hypochlorite 0.125% 473 Ml Solution) 1 appl TOPICAL DAILY [facility] Last Admin: 10/03/23 07:54 Dose: 1 appl Trimethoprim/Sulfamethoxazole (Sulfamethox/Trimeth 400/80 Tablet) 1 tab PO DAILY [facility] Last Admin: 10/03/23 07:52 Dose: 1 tab Home Medications ?Medication ?Instructions ?Recorded ?Confirmed ?Last Taken ?Type atorvastatin 40 mg tablet 40 mg PO DAILY 09/23/23 09/23/23 Unknown History empagliflozin 25 mg-linagliptin 5 1 tab PO QAM 09/23/23 09/23/23 Unknown History mg tablet (Glyxambi) fenofibrate 160 mg tablet 160 mg PO DAILY 09/23/23 09/23/23 Unknown History losartan 100 mg tablet 100 mg PO DAILY 09/23/23 09/23/23 Unknown History omeprazole 40 mg capsule,delayed 40 mg PO DAILY 09/23/23 09/23/23 Unknown History release Physical Exam Vital Signs: Last Vital Signs Temp 96.9 F 10/03/23 16:00 Pulse 96 10/03/23 16:00 Resp 14 10/03/23 16:00 BP 124/64 10/03/23 16:00 Pulse Ox 96 10/03/23 16:00 O2 Del Method Room Air 10/03/23 16:00 O2 Flow Rate 96 09/27/23 07:40 BMI result Body Mass Index 20.2 Const General: no acute distress HEENT Other: large ulcerated mass involving left jaw/neck Resp Auscultation: diminished lung sounds Cardio Rate: regular rate GI Palpation (GI): Soft to palpation Neuro General: moves all extremities Results Lab Results 10/01/23 05:44 10/03/23 06:14 Lab results: Chemistry 10/01/23 10/02/23 10/03/23 05:44 08:39 06:14 Sodium 128 L 127 L 129 L Potassium 4.4 4.5 4.4 Carbon Dioxide 25 21 L 22 BUN 15 14 13 Creatinine 1.27 1.24 1.16 Calcium 13.4 H* D 12.5 H* D 13.2 H* Hematology 10/01/23 05:44 WBC 29.5 H Hgb 11.3 L Plt Count 390 Assessment and Plan (1) Hypercalcemia of malignancy: Status: Acute Plan Hypercalcemia likely from malignancy Has been getting normal saline Was given sodium palmidronate 120 mg Continue current supportive care for now May need monoclonal antibody No indication for renal replacement with a low calcium in the dialysate( yet) Shall follow along during her hospital stay Procedures Date of Service Date of Service: 10/03/23
[2023-10-03 19:43] VITALS: BP 144/63; PULSE 96; RESP 18; TEMP 36.6; O2SAT 96
[2023-10-03 20:26] LABS: Glucose, Whole Blood 160 mg/dL (60-115)
[2023-10-03] MEDS: Insulin Glargine,Hum.rec.anlog 100 UNIT/ML 10 ML VIAL 10 UNIT SUBCUT (21:24)
[2023-10-03] MEDS: 0.9 % Sodium Chloride 1,000 ML 100 ML IVCONT (23:22)
[2023-10-04 04:00] VITALS: BP 129/64; PULSE 85; RESP 16; TEMP 35.9; O2SAT 96
[2023-10-04] MEDS: Omeprazole/Na Bicarb Oral Susp 20 MG/10 ML UD Cup PO (05:40)
[2023-10-04] MEDS: oxyCODONE HCl Immed Release 5 MG TABLET 10 MG PO ×2 (05:48→17:14)
--- NOTE | 2023-10-04 06:42 | PC.NURSE ---
Still with Gtube feed residual 60- 70mls, c/o abd and back pain prn Oxycodone 10 mg per GT given and slept all night.
[2023-10-04 06:47] LABS: Anion Gap 9 (12-20); Blood Urea Nitrogen 12 mg/dL (9-16); Calcium 11.9 mg/dL (8.4-10.2); Carbon Dioxide 23 mmol/L (22-29); Chloride 107 mmol/L (96-108); Creatinine Clr Calc Pharmacy 32.6; Estimated Glomerular Filt Rate 58; Glucose Random 307 mg/dL (60-115); Potassium 4.1 mmol/L (3.3-5.1); Sodium 135 mmol/L (135-145)
[2023-10-04 08:00] VITALS: BP 136/71; PULSE 108; RESP 12; TEMP 36.3; O2SAT 96
[2023-10-04 08:18] LABS: Glucose, Whole Blood 308 mg/dL (60-115)
[2023-10-04] MEDS: Insulin Lispro 100 UNIT/ML 3 ML VIAL SUBCUT ×2 (08:53→17:13)
[2023-10-04] MEDS: Heparin Sodium,Porcine 5,000 UNIT/ML VIAL 5000 UNIT SUBCUT (08:54)
[2023-10-04] MEDS: Acetaminophen 325 MG TABLET 650 MG G-TUBE (08:55)
[2023-10-04] MEDS: Atorvastatin Calcium 40 MG TABLET PO (08:55)
[2023-10-04] MEDS: Bictegrav/Emtricit/Tenofov Ala TABLET 1 TAB PO (08:55)
[2023-10-04] MEDS: polyethylene glycoL 3350 17 GM POWD.PACK PO (08:55)
[2023-10-04 08:56] VITALS: BP 136/71
[2023-10-04] MEDS: Docusate Sodium 100 MG/10 ML LIQUID PO (08:56)
[2023-10-04] MEDS: Losartan Potassium 50 MG TABLET 100 MG PO (08:56)
[2023-10-04] MEDS: Sulfamethox/Trimeth 400/80 TABLET 1 TAB PO (08:56)
[2023-10-04] MEDS: Sodium Hypochlorite 0.125% 473 ML SOLUTION 1 APPL TOPICAL (09:12)
[2023-10-04] MEDS: 0.9 % Sodium Chloride 1,000 ML 100 ML IVCONT (09:13)
[2023-10-04 11:51] LABS: Glucose, Whole Blood 147 mg/dL (60-115)
--- NOTE | 2023-10-04 12:12 | P.PNIM_ITS ---
Subjective Subjective Date of Service: 10/04/23 Interval History: seen and examined this morning follow up for head/neck cancer, hypercalcemia no overnight events Still unable to take food by mouth, able to tolerate liquids. Tolerating tube feeds Review of Systems Review of Systems: Yes all other systems are reviewed and are negative Constitutional Constitutional: Denies chills and Denies fever(s) Physical Exam 2 Vital Signs: Vital Signs: Last Vital Signs Temp 97.4 F 10/04/23 08:00 Pulse 108 H 10/04/23 08:00 Resp 12 10/04/23 08:00 BP 136/71 10/04/23 08:56 Pulse Ox 96 10/04/23 08:00 O2 Del Method Room Air 10/04/23 08:00 O2 Flow Rate 96 09/27/23 07:40 BMI result Body Mass Index 20.2 Const: Other: Constitutional-awake, alert, does not appear to be in any acute distress HEENT- large ulcerated mass involving left jaw/neck Cardiovascular-RR GI abdomen soft, nondistended-feeding tube in place with no surrounding cellulitis MS - able to move all 4 extremities spontaneously Objective Data Active Medications Acetaminophen (Acetaminophen 325 Mg Tablet) 650 mg G-TUBE Q6H PRN PRN Reason: Pain, Mild (Pain Scale 1-3) Last Admin: 10/04/23 08:55 Dose: 650 mg Documented By: MARLENA Atorvastatin Calcium (Atorvastatin Calcium 40 Mg Tablet) 40 mg PO DAILY [facility] Last Admin: 10/04/23 08:55 Dose: 40 mg Documented By: MARLENA Bictegravir/Emtricitabine/Tenofovir (Bictegrav/Emtricit/Tenofov Ala Tablet) 1 tab PO DAILY [facility] Last Admin: 10/04/23 08:55 Dose: 1 tab Documented By: MARLENA Docusate Sodium (Docusate Sodium 100 Mg/10 Ml Liquid) 100 mg PO DAILY [facility] Last Admin: 10/04/23 08:56 Dose: 100 mg Documented By: MARLENA Glucose (Glucose Gel 15 Gm Gel..Gram.) 15 gm PO Q15M PRN; Protocol PRN Reason: per Hypoglycemia Standing Ord. Heparin Sodium (Porcine) (Heparin Sodium,Porcine 5,000 Unit/Ml Vial) 5,000 unit SUBCUT Q12H [facility] Last Admin: 10/04/23 08:54 Dose: 5,000 unit Documented By: MARLENA Dextrose (D10) 250 mls @ 750 mls/hr IV Q15M PRN; Protocol PRN Reason: per Hypoglycemia Standing Ord. Sodium Chloride (Ns) 1,000 mls @ 100 mls/hr IVCONT .Q10H [facility] Last Admin: 10/04/23 09:13 Dose: 100 mls/hr Documented By: MARLENA Insulin Glargine (Insulin Glargine,Hum.Rec.Anlog 100 Unit/Ml 10 Ml Vial) 10 unit SUBCUT BEDTIME [facility] Last Admin: 10/03/23 21:24 Dose: 10 unit Documented By: BARRY Insulin Human Lispro (Insulin Lispro 100 Unit/Ml 3 Ml Vial) 0 unit SUBCUT QIDACHS [facility]; Protocol Last Admin: 10/04/23 08:53 Dose: 8 unit Documented By: MARLENA Losartan Potassium (Losartan Potassium 50 Mg Tablet) 100 mg PO DAILY [facility]; Protocol Last Admin: 10/04/23 08:56 Dose: 100 mg Documented By: MARLENA Magnesium Hydroxide (Milk Of Magnesia 30 Ml Oral.Susp) 30 ml G-TUBE DAILY PRN PRN Reason: Constipation Omeprazole (Omeprazole/Na Bicarb Oral Susp 20 Mg/10 Ml Ud Cup) 20 mg PO DAILY@0630 [facility] Last Admin: 10/04/23 05:40 Dose: 20 mg Documented By: BARRY Ondansetron HCl (Ondansetron Hcl 4 Mg/2 Ml Vial) 4 mg IVPUSH Q8H PRN PRN Reason: Nausea and Vomiting Oxycodone HCl (Oxycodone Hcl Immed Release 5 Mg Tablet) 10 mg PO Q4H PRN PRN Reason: Pain, Severe (Pain Scale 7-10) Last Admin: 10/04/23 05:48 Dose: 10 mg Documented By: BARRY Polyethylene Glycol (Polyethylene Glycol 3350 17 Gm Powd.Pack) 17 gm PO DAILY [facility] Last Admin: 10/04/23 08:55 Dose: 17 gm Documented By: MARLENA Sodium Chloride (0.9 % Sodium Chloride Flush 3 Ml Syringe) 3 ml IVFLUSH QSHIFT [facility] Last Admin: 10/04/23 07:43 Dose: Not Given Documented By: MARLENA Non-Admin Reason: IV Running Sodium Hypochlorite (Sodium Hypochlorite 0.125% 473 Ml Solution) 1 appl TOPICAL DAILY [facility] Last Admin: 10/04/23 09:12 Dose: 1 appl Documented By: MARLENA Trimethoprim/Sulfamethoxazole (Sulfamethox/Trimeth 800/160 Tablet) 1 tab PO DAILY [facility] Labs 10/01/23 05:44 10/04/23 05:30 Labs: Laboratory Results - last 24 hr 10/03/23 10/03/23 10/03/23 15:52 16:22 20:21 Hold Purple Top Anion Gap Estim Creat Clear Calc Estimated GFR POC Glucose 251 H 160 H Random Glucose Calcium PTH Intact 10.5 10/04/23 10/04/23 10/04/23 05:30 08:15 11:37 Hold Purple Top SEE NOTE Anion Gap 9 L Estim Creat Clear Calc 32.6 Estimated GFR 58 POC Glucose 308 H 147 H Random Glucose 307 H Calcium 11.9 H D PTH Intact Assessment and Plan (1) Hypercalcemia of malignancy: Status: Acute (2) AIDS: Status: Acute Plan 68-year-old female with a past medical history of hypercalcemia, throat cancer, HTN, HLD, diabetes, dysphagia, HIV (noncompliant on meds x weeks) admitted for futher management of extensive invasive facial/neck tumor with infection and infected g tube site with cellulitis and sepsis. 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 Hx of surgical removal of Left side mandible CT soft tissue neck shows large soft tissue masses involving mucosal surfaces throughout the head and neck and multiple extra mucosal soft tissue compartments with adenopathy and involvement of the overlying skin surface IV vancomycin and Zosyn stopped per ID, no infection Seen by Oncology, for advanced oropharyngeal cancer, this is outside the scope for [facility], patient will need [facility] and radiation oncology consultation upon discharge not amenable to surgical resection Continue local wound care, seen by wound care nurse Initially thought to have infected G-tube site with cellulitis and sepsis Seen by ID, no infection, white count is leukemoid reaction from cancer. Reevaluated by general surgery 09/30- no infection but leaking glucerna, advanced and balloon reinflated s/p Antibiotics Blood cultures negative to date nutrition consult for tube feeds> glucerna 55ml/hr, free water 120Q8h , now not able to take po pureed --plan to decrease free water sodium is trending down (Bolus feed recommendations documented by nutrition for discharge, see note for details) acute on chronic Hypercalcemia Due to malignancy Received pamidronate 09/30, 10/01 calcium still elevated, no further pamidronate indicated for 7 days. no calcitonin available. checking with pharmacy availability of zometa or prolia. nephrology following continue IVF PTH 10.5 Calcium trending down, 11.9 PseudoHyponatremia resolved HIV continue Biktarvy CD4 count less than 200, daily Bactrim for prophylaxis Hypomagnesemia improved with replacement acute/subacute rib fractures/L1 compression fracture s/p mechanical fall pain management p.r.n. DM2 with hyperglycemia Lantus at bedtime, will up titrate to 10U continue SSI glucerna for tube feedings HTN continue losartan HLD statin Moderate malnutrition. BMI 20.2 Gtube feeds, liquids by mouth dvt prophylaxis- heparin Attending Dr. Jama full code per patient dispo - likely home with family as no pcp; CM following , awaiting [employer] approval so glucerna can be covered, otherwise cannot afford and not taking in much po Requires ongoing inpatient stay for invasive tumor of head/neck requiring expert consultation and in patient with HIV who has been noncompliant with anti- retroviral therapy and is immunocompromised, safe disposition and electrolyte monitoring Quality Stroke Does the patient have a stroke diagnosis?: No VTE Prior VTE?: No VTE Risk Level:: Medical - moderate - high VTE Device Contraindication: Treatment Not Indicated VTE Drug Contraindication: N/A - Med Ordered
--- NOTE | 2023-10-04 14:43 | P.DS_ITS ---
DS: Providers Provider Date of Service: 10/04/23 Date of admission: 09/23/23 20:33 Date of discharge: 10/04/23 Primary care physician: None Physician Consults: 09/23/23 20:06 Consult to General Surgery Routine Consulting Provider: [facility] Reason for consultation: infected g tube site Consult to Hematology / Oncology Routine Consulting Provider: Adriana Alejandro Reason for consultation: extensive invasive tumor neck/jaw Consult to Infectious Diseases Routine Consulting Provider: [facility] Reason for consultation: HIV- noncompliant with meds for days vs weeks 09/24/23 09:32 Consult to Wound Care Routine Reason for consultation: neck cancer , G tube infection 10/03/23 14:45 Consult to Nephrology Routine Consulting Provider: [facility] Reason for consultation: hypercalcemia Has provider been notified: No Attending physician on discharge: Noman Gresham Discharging clinician: Jackeline Coyne DS: Diagnosis Discharge Diagnosis (1) Hypercalcemia of malignancy: Status: Acute (2) AIDS: Status: Acute DS: Summary Hospital Course Hospital Course: From H&P on the day of admission 68-year-old female with a past medical history of hypercalcemia, throat cancer, HTN, HLD, diabetes, dysphagia, HIV (noncompliant on meds x weeks), presenting to the ED due to anorexia, low back/rib pain s/p mechanical fall a few weeks ago, infected G-tube, and worsening jaw cancer from [place]. Patient states she was recently admitted to hospital in [place] due to inability to tolerate p.o., had G-tube placed at that time, and also sustained mechanical fall during visit onto back. Reports since fall has been having worsening low back pain with movement and urinary incontinence. Daughter states she brought patient from [place] care. THe patient and her daughter report she underwent resection of the gums and left jaw in November 2022 and was seen by oncology. Reports biopsy in january was negative for malignancy. She then developed lesions on the left cheek and again underwent excision. She was then told she has cancer of the ?jaw and that there was no chemo or radiation treatment available for her. She has developed progressive dysphagia and anorexia and was recently hospitalized in [facility] in the last few weeks and had g tube placed. Daughter states she was on glucerna but does not have any additional information about her tube feeds. She has been tolerating pureed diet and thin liquids but still does not take in much PO. She has also noted some purulent drainage from the site of the g tube insertion. She denies fevers, chills, abd pain, nausea, vomiting, ongoing dysphagia, cough, dizziness, sob, chest pain. She is complaining of back pain. Of note, while in the hospital it is reported the patient was put in charge of managing her home meds and due to the size of her HIV meds has not taken these in days vs weeks but is unsure. She did live in [place] 3 years ago and had been following with [facility] for infectious disease. On arrival, tachycardic to 114, vitals otherwise stable. She has a significant leukocytosis of 34.4 with left shift. She has a mild normocytic anemia with h/h 11.1/32.2%, plt 559. Creat 1.27, bun 21, sodium 128, chloride 94, calcium 12.1. Initial glucose 515, improved to 332 on admission. CRP 7.64, ESR 92. VBG ph 7.44, pco2 38, bicarb 26. Lumbar spine x-ray shows superior endplate compression deformity at L1 with 50% loss of vertebral body height as well as multilevel degenerative changes and complex lumbar scoliosis as well as osteopenia. Shows right posterior 11th and 12th and left posterior 10th rib fractures, possibly acute versus subacute with stable scarring and bronchiectasis in the right upper lobe. CT abdomen/pelvis shows again the L1 vertebral body compression fracture as well as mild bilateral hydronephrosis and ureteral dilatation possibly related to bladder distention. G-tube in the stomach is in satisfactory position. CT soft tissue neck shows large soft tissue mass involving mucosal surfaces throughout the head and neck and multiple extra mucosal soft tissue compartments with adenopathy and involvement of the overlying skin surface. 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 In the ED, treated with IV LR, 4 mg morphine, IV NS, Zosyn, ondansetron, and vancomycin. 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 Bone invasion not identified. She was staged as AJCC pT2 pNX. According to patient and her daughter, she underwent local resection but no radiation or systemic therapy. She had regrowth of the tumor, CT neck performed 06/03/2023 at [facility] revealed postsurgical changes in the left mandible. There was evidence of surgical removal of left side of mandible from left anterior mandible into the mandibular angle which still remains and the coronoid process is still present. Large enhancing multilobulated mass measuring 3.4 x 1.8 x 4.8 cm suspicious for malignancy in the left mandibular area. Contains multiple areas of necrosis involving the left masseter muscle. Mass is abutting left mandibular gland and invading left submandibular gland. Apparently she had a reexcision a few weeks ago in [place]. Imaging with CT neck, chest, abdomen and pelvis at [facility] 09/23/2023 reveals large soft tissue mass with cystic/necrotic components involving multiple facial complaints. Tumor is present throughout the left oropharyngeal wall, left glossotonsillar sulcus, floor of mouth extending across midline, involvement of left lateral tongue. Tumor infiltrates into left lateral aspect of soft palate, left retromolar trigone and pterygomandibular raphe. Multinodular tumor extends into skin surface in the submental space and left anterior cervical space. Tumor infiltrates into and around the left sternocleidomastoid muscle as well. Potential spread of tumor into left prevertebral soft tissue at the level of the Uvula. Partial thrombosis due to compression versus tumoral infiltration of left internal jugular vein. The left styloid process is engulfed by tumor as his left parotid gland. Imaged mediastinum appears normal. CT chest/abdomen and pelvis showed evidence of metastatic disease. Initially she was treated with IV vancomycin and Zosyn due to concern over superimpsed infection. she was seen by ID and antibiotics were discontinued. She was seen by Oncology and due to advanced oropharyngeal cancer, deemed to be outside the scope for [facility], the plan was for outpatient referral to [facility] and radiation oncology consultation upon discharge Unfortunately She began having bleeding from her tumor. She would likley benefit from radiation therapy. Initially thought to have infected G-tube site with cellulitis Seen by ID, no infection, white count is leukemoid reaction from cancer. Reevaluated by general surgery 09/30- no infection but leaking glucerna, tube was advanced and balloon reinflated Blood cultures negative to date nutrition consult for tube feeds> glucerna 55ml/hr, free water 120Q8h; able to drink liquids by mouth but unable to tolerate any solids. Hypercalcemia Due to malignancy Received pamidronate and was started on IVF and calcium trending down to 11.9 from 13.4 on 09/30 PTH 10.5 HIV continued on Biktarvy. CD4 count 125, viral load undetectable on 09/23. started on daily Bactrim for prophylaxis leukocytosis likely leukemoid reaction due to cancer No active infection identified Blood cultures have remained negative WBC count 34 on 09/22, most recently 29.5 on 09/30 acute/subacute rib fractures/L1 compression fracture s/p mechanical fall pain management p.r.n. DM2 with hyperglycemia Lantus at bedtime, will up titrate to 10U continue SSI glucerna for tube feedings HTN continue losartan HLD statin Moderate malnutrition. BMI 20.2 Gtube feeds, liquids by mouth Imaging including abdomen/pelvis CT, chest CT, soft tissue neck CT from September 22 uploaded to [facility] in the General folder Covid swab 09/23/23 and 10/04/23 were negative and results included with discharge paperwoek Status at Discharge Functional status at discharge: independent ambulation Time Attestation Discharge Coordination Time (in mins): 40 Quality: Safe Use of Opioids Does Pt have an Active Cancer Diagnosis on the Problem List?: Yes Opioid Measure Date for [facility] Report: 09/04/23 Opioid Measure Time for [facility] Report: 15:11 Quality: Stroke Does the patient have a stroke diagnosis?: No Physical Exam Vital Signs: Vital Signs: Last Vital Signs Temp 97.4 F 10/04/23 08:00 Pulse 108 H 10/04/23 08:00 Resp 12 10/04/23 08:00 BP 136/71 10/04/23 08:56 Pulse Ox 96 10/04/23 08:00 O2 Del Method Room Air 10/04/23 08:00 O2 Flow Rate 96 09/27/23 07:40 BMI result Body Mass Index 20.2 Const: General: cooperative, no acute distress, alert and awake Nutritional Appearance: thin Orientation/consciousness: patient oriented x3 Resp: Effort & Inspection: normal respiratory effort, able to speak in complete sentences, no respiratory distress and no use of accessory muscles Cardio: Rate: regular rate GI: Other: feeding tube present with no surrounding cellulitis Inspection: No distended Palpation (GI): Soft to palpation and nontender Skin: Other: large ulcerated mass involving left jaw/neck Neuro: General: patient oriented x3, moves all extremities and CN's II-XI intact bilaterally DS: Data Data Completed and Pending Labs on day of discharge: Laboratory Results - last 24 hr 10/03/23 10/03/23 10/03/23 15:52 16:22 20:21 Hold Purple Top Sodium Potassium Chloride Carbon Dioxide Anion Gap BUN Creatinine Estim Creat Clear Calc Estimated GFR POC Glucose 251 H 160 H Random Glucose Calcium PTH Intact 10.5 10/04/23 10/04/23 10/04/23 05:30 08:15 11:37 Hold Purple Top SEE NOTE Sodium 135 Potassium 4.1 Chloride 107 Carbon Dioxide 23 Anion Gap 9 L BUN 12 Creatinine 0.96 Estim Creat Clear Calc 32.6 Estimated GFR 58 POC Glucose 308 H 147 H Random Glucose 307 H Calcium 11.9 H D PTH Intact Imaging CT scan - chest: Radiologist's impression: ITS Impressions Lumbar Spine X-Ray 09/23/23 13:18 IMPRESSION: 1. Superior endplate compression deformity at L1 with 50 percent loss of vertebral body height is new as compared to 2019 and possibly acute. 2. Moderate multilevel degenerative spondylosis. 3. Moderate right convex lumbar scoliosis. 4. Osteopenia. Chest CT 09/23/23 16:03 IMPRESSION: Right posterior 11th and 12th and left posterior 10th rib fractures that appear acute. Old ununited left posterior 10th rib fracture. Stable scarring and bronchiectasis in the right upper lobe. Nondisplaced fracture of the right L1 transverse process and L1 compression fracture, acute, described in abdominal and pelvic CT report. Fleischner guidelines were followed. Soft Tissue Neck CT 09/23/23 16:05 IMPRESSION: Large soft tissue mass as described involving mucosal surfaces throughout the head and neck and multiple extra-mucosal soft tissue compartments with adenopathy and involvement of the overlying skin surface. Spiculated 0.5 cm subpleural nodule in the right upper lobe with adjacent scarring. Emphysematous changes. Thoracic findings further described on the patient's dedicated chest CT exam acquired contemporaneously on the same day. 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 Abdomen/Pelvis CT 09/23/23 16:13 IMPRESSION: Moderate recent appearing L1 vertebral body compression fracture. Mild bilateral hydronephrosis and ureteral dilatation. The bladder is well-distended and this may be secondary to bladder distention. Differential would include reflux. G-tube in the stomach in satisfactory position. Question wall thickening of the distal stomach/antrum. Fleischner guidelines were followed. 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 (DME) blood-glucose meter [FreeStyle Lite Meter] Kit Qty: 1 0RF Rx Instructions: As Directed alcohol swabs Pads, Medicated 1 pad TOPICAL QIDACHS Qty: 100 0RF Rx Instructions: Use four times a day or as directed. (DME) pen needle, diabetic 32 gauge x 1/4 needle Qty: 100 0RF Rx Instructions: Use four times a day or as directed. (DME) lancets [FreeStyle Lancets] 28 gauge misc Qty: 100 0RF Rx Instructions: Test four times a day or as directed. sulfamethoxazole-trimethoprim 800-160 mg Tablet 1 tab PO DAILY Qty: 1 0RF polyethylene glycol 3350 17 gram Powder In Packet 17 g PO DAILY Qty: 14 0RF oxycodone 5 mg Tablet 10 mg PO Q4H PRN (Reason: Pain, Severe (Pain Scale 7-10)) Qty: 1 0RF Rx Instructions: Partial Fill upon patient request. Konvomep 2-84 mg/mL Suspension For Reconstitution 10 ml PO DAILY@0630 Qty: 90 0RF insulin glargine [Lantus U-100 Insulin] 100 unit/mL Solution 10 unit subcut BEDTIME Qty: 10 0RF insulin lispro [Admelog U-100 Insulin lispro] 100 unit/mL Solution See Protocol subcut QIDACHS Qty: 10 0RF Protocol: Insulin Correction Scale Less than or equal to 110 ---- Give (units): 0 111 to 150 Give (units): 0 151 to 200 Give (units): 2 201 to 250 Give (units): 4 251 to 300 Give (units): 6 301 to 350 Give (units): 8 Greater than 350 Give (units): 10 Call MD if Blood Glucose > : 350 Continued atorvastatin 40 mg tablet 40 mg PO DAILY omeprazole 40 mg capsule,delayed release(DR/EC) 40 mg PO DAILY losartan 100 mg tablet 100 mg PO DAILY fenofibrate 160 mg tablet 160 mg PO DAILY Glyxambi 25-5 mg tablet 1 tab PO QAM Discontinued insulin glargine [Lantus U-100 Insulin] 100 unit/mL Solution 8 unit SUBCUT BEDTIME Discharge Orders: Discharge Order (Routine); Ordered 10/04/23 Ordered By: Jackeline Coyne Diet: g-tube feedings Activity on Discharge: As tolerated Stand Alone Forms: Patient Portal Discharge page Print Language: Moroccan Care Plan Goals: see below Health Concerns: locally advanced SCC originating from mandibular gum/mucosa with invasion into skeletal muscle with active bleeding of facial/jaw tumor Hypercalcemia of malignancy Dysphagia requiring tube feeding HIV on Biktarvy Type 2 diabetes Moderate malnutrition Plan of Treatment: Transfer to tertiary care facility for evaluation of squamous cell carcinoma of the neck/jaw requiring possible inpatient radiation Assessment: See discharge summary
[2023-10-04 15:03] LABS: COVID-19 Test Negative (Negative); IDNOW Serial# 58CA691E
--- NOTE | 2023-10-04 15:20 | MHC.CM.PN ---
pt transferrwd to [facility]
--- NOTE | 2023-10-04 15:31 | PM.PNGS ---
Subjective Subjective Date of Service: 10/09/23 Interval history: Asked by hospitalist to follow-up due to bleeding from the tumor on the left side of the neck Brisk bleeding noted despite dressings placed Patient known to have squamous cell carcinoma, with metastasis Physical Exam Vital Signs: Vital Signs: Last Vital Signs Temp 97.4 F 10/04/23 08:00 Pulse 108 H 10/04/23 08:00 Resp 12 10/04/23 08:00 BP 136/71 10/04/23 08:56 Pulse Ox 96 10/04/23 08:00 O2 Del Method Room Air 10/04/23 08:00 O2 Flow Rate 96 09/27/23 07:40 BMI result Body Mass Index 20.2 Const: General: comfortable and no acute distress Neck: Other: Bulky tumor occupying the left jaw all the way to the left neck, with extending fungating mass, with a deep raw area with 2 areas with brisk bleeding Objective Data Active Medications Acetaminophen (Acetaminophen 325 Mg Tablet) 650 mg G-TUBE Q6H PRN PRN Reason: Pain, Mild (Pain Scale 1-3) Last Admin: 10/04/23 08:55 Dose: 650 mg Documented By: MARLENA Atorvastatin Calcium (Atorvastatin Calcium 40 Mg Tablet) 40 mg PO DAILY [facility] Last Admin: 10/04/23 08:55 Dose: 40 mg Documented By: MARLENA Bictegravir/Emtricitabine/Tenofovir (Bictegrav/Emtricit/Tenofov Ala Tablet) 1 tab PO DAILY [facility] Last Admin: 10/04/23 08:55 Dose: 1 tab Documented By: MARELNA Docusate Sodium (Docusate Sodium 100 Mg/10 Ml Liquid) 100 mg PO DAILY [facility] Last Admin: 10/04/23 08:56 Dose: 100 mg Documented By: MARLENA Glucose (Glucose Gel 15 Gm Gel..Gram.) 15 gm PO Q15M PRN; Protocol PRN Reason: per Hypoglycemia Standing Ord. Heparin Sodium (Porcine) (Heparin Sodium,Porcine 5,000 Unit/Ml Vial) 5,000 unit SUBCUT Q12H [facility] Last Admin: 10/04/23 08:54 Dose: 5,000 unit Documented By: MARLENA Dextrose (D10) 250 mls @ 750 mls/hr IV Q15M PRN; Protocol PRN Reason: per Hypoglycemia Standing Ord. Sodium Chloride (Ns) 1,000 mls @ 100 mls/hr IVCONT .Q10H [facility] Last Admin: 10/04/23 09:13 Dose: 100 mls/hr Documented By: MARLENA Insulin Glargine (Insulin Glargine,Hum.Rec.Anlog 100 Unit/Ml 10 Ml Vial) 10 unit SUBCUT BEDTIME [facility] Last Admin: 10/03/23 21:24 Dose: 10 unit Documented By: BARRY Insulin Human Lispro (Insulin Lispro 100 Unit/Ml 3 Ml Vial) 0 unit SUBCUT QIDACHS [facility]; Protocol Last Admin: 10/04/23 12:20 Dose: Not Given Documented By: MARLENA Non-Admin Reason: No Insulin Coverage Losartan Potassium (Losartan Potassium 50 Mg Tablet) 100 mg PO DAILY [facility]; Protocol Last Admin: 10/04/23 08:56 Dose: 100 mg Documented By: MARLENA Magnesium Hydroxide (Milk Of Magnesia 30 Ml Oral.Susp) 30 ml G-TUBE DAILY PRN PRN Reason: Constipation Omeprazole (Omeprazole/Na Bicarb Oral Susp 20 Mg/10 Ml Ud Cup) 20 mg PO DAILY@0630 [facility] Last Admin: 10/04/23 05:40 Dose: 20 mg Documented By: BARRY Ondansetron HCl (Ondansetron Hcl 4 Mg/2 Ml Vial) 4 mg IVPUSH Q8H PRN PRN Reason: Nausea and Vomiting Oxycodone HCl (Oxycodone Hcl Immed Release 5 Mg Tablet) 10 mg PO Q4H PRN PRN Reason: Pain, Severe (Pain Scale 7-10) Last Admin: 10/04/23 05:48 Dose: 10 mg Documented By: BARYR Polyethylene Glycol (Polyethylene Glycol 3350 17 Gm Powd.Pack) 17 gm PO DAILY [facility] Last Admin: 10/04/23 08:55 Dose: 17 gm Documented By: AMRLENA Sodium Chloride (0.9 % Sodium Chloride Flush 3 Ml Syringe) 3 ml IVFLUSH QSHIFT [facility] Last Admin: 10/04/23 07:43 Dose: Not Given Documented By: MARLENA Non-Admin Reason: IV Running Sodium Hypochlorite (Sodium Hypochlorite 0.125% 473 Ml Solution) 1 appl TOPICAL DAILY [facility] Last Admin: 10/04/23 09:12 Dose: 1 appl Documented By: MARLENA Trimethoprim/Sulfamethoxazole (Sulfamethox/Trimeth 800/160 Tablet) 1 tab PO DAILY [facility] 10/01/23 05:44 10/04/23 05:30 Labs: Laboratory Results - last 24 hr 10/03/23 10/03/23 10/03/23 15:52 16:22 20:21 Hold Purple Top Anion Gap Estim Creat Clear Calc Estimated GFR POC Glucose 251 H 160 H Random Glucose Calcium PTH Intact 10.5 COVID-19 (JUWAN) COVID-19 [employer] 10/04/23 10/04/23 10/04/23 05:30 08:15 11:37 Hold Purple Top SEE NOTE Anion Gap 9 L Estim Creat Clear Calc 32.6 Estimated GFR 58 POC Glucose 308 H 147 H Random Glucose 307 H Calcium 11.9 H D PTH Intact COVID-19 (JUWAN) COVID-19 [employer] 10/04/23 14:30 Hold Purple Top Anion Gap Estim Creat Clear Calc Estimated GFR POC Glucose Random Glucose Calcium PTH Intact COVID-19 (JUWAN) Negative COVID-19 [facility] See Note Procedures Date of Service Date of Service: 10/09/23 Progress Note: A&P Assessment and plan (1) Squamous cell carcinoma of mouth: Status: Acute Assessment and Plan: Has squamous cell carcinoma, extensive, neglected Two areas with brisk bleeding I applied Gelfoam with pinpoint pressure to these 2 areas Thick dressings placed Anticipate recurrent bleeding in view of the neglected tumor Patient she would benefit from radiation for this squamous cell carcinoma In view of he had recurrent bleeding, may be best to be transferred to tertiary care hospital for better control Time Spent With Patient Time: Total time managing care of this patient today ____ minutes. Quality Stroke Does the patient have a stroke diagnosis?: No VTE Prior VTE?: No VTE Risk Level:: Medical - moderate - high VTE Device Contraindication: Treatment Not Indicated VTE Drug Contraindication: N/A - Med Ordered
[2023-10-04 15:49] VITALS: BP 130/59; PULSE 118; RESP 18; TEMP 36.1; O2SAT 96
[2023-10-04 16:28] LABS: Glucose, Whole Blood 245 mg/dL (60-115)
--- NOTE | 2023-10-04 17:04 | PC.NURSE ---
Blood gushing from the left side tumor site during dressing change. Provider notified and at bedside along with Surgical provider. Pressure applied, multiple dsg changes. Plan to discharge pt. to [facility] for cancer treatment.
--- NOTE | 2023-10-04 17:07 | PC.NURSE ---
Report called to [facility] spoke with receiving Nurse, pending transportation.
== END 2023-10-04 18:40 | disposition short-term general hospital (02) | DRG 147 ==
LOC: HO.ED 19:03 → HO.EDOVER 20:35 → HO.S3 20:56
PROVIDERS: Family Medicine; Internal Medicine; Nurse Practitioner Acute Care; Physician Assistant; Physician Assistant Medical; Student in an Organized Health Care Education/Training Program; Admitting Provider Physician Assistant; Emergency Provider Emergency Medicine; Visit Provider Physician Assistant Medical
DX: C76.0 Malignant neoplasm of head, face and neck (principal); B20 Human immunodeficiency virus [HIV] disease; E44.0 Moderate protein-calorie malnutrition; S22.41XA Multiple fractures of ribs, right side, initial encounter for closed fracture; K94.23 Gastrostomy malfunction; S32.018A Other fracture of first lumbar vertebra, initial encounter for closed fracture; I96 Gangrene, not elsewhere classified; N13.30 Unspecified hydronephrosis; G89.3 Neoplasm related pain (acute) (chronic); W19.XXXA Unspecified fall, initial encounter; E78.5 Hyperlipidemia, unspecified; D63.0 Anemia in neoplastic disease; E11.65 Type 2 diabetes mellitus with hyperglycemia; D72.823 Leukemoid reaction; J47.9 Bronchiectasis, uncomplicated; I10 Essential (primary) hypertension; E86.0 Dehydration; E83.42 Hypomagnesemia; E83.52 Hypercalcemia; R13.10 Dysphagia, unspecified; Z20.822 Contact with and (suspected) exposure to COVID-19; Z91.148 Patient's other noncompliance with medication regimen for other reason; Z68.20 Body mass index [BMI] 20.0-20.9, adult; Z87.891 Personal history of nicotine dependence; Z79.4 Long term (current) use of insulin; Z79.899 Other long term (current) drug therapy
CPT/HCPCS: 0241U; 36415; 70491; 71250; 72100; 74177; 80048; 80053; 82010; 82040; 82565; 82570; 82803; 82947; 83605; 83690; 83735; 83935; 83970; 84132; 84300; 85025; 85027; 85652; 86140; 86359; 86360; 87040; 87536; 87635; 93005; 97116; 97162; 97530; 99213; 99285; J1170; J1644; J2270; J2405; J2430; J2543; J3370; J3475; J3480; J7120; Q9967

== ENCOUNTER → 2023-09-23 14:54 | Outpatient (BNV) | payer OTHER, SELFPAY | PROVIDERS: Emergency Provider Emergency Medicine; Visit Provider Internal Medicine Cardiovascular Disease | DX: R94.31 Abnormal electrocardiogram [ECG] [EKG] (principal) | CPT/HCPCS: 93010 ==

== ENCOUNTER → 2023-09-23 20:33 | Outpatient (BNV) | payer MEDICARE, SELFPAY | PROVIDERS: Admitting Provider Physician Assistant; Emergency Provider Emergency Medicine; Visit Provider Internal Medicine | DX: B20 Human immunodeficiency virus [HIV] disease (principal) | CPT/HCPCS: 99222; 99232 ==

== ENCOUNTER → 2023-09-23 20:33 | Outpatient (BNV) | payer MEDICARE, SELFPAY | PROVIDERS: Admitting Provider Physician Assistant; Emergency Provider Emergency Medicine; Visit Provider Internal Medicine | DX: M27.8 Other specified diseases of jaws (principal) | CPT/HCPCS: 99223 ==

== ENCOUNTER → 2023-09-23 20:33 | Outpatient (BNV) | payer OTHER, MEDICAID, SELFPAY | PROVIDERS: Admitting Provider Physician Assistant; Emergency Provider Emergency Medicine; Visit Provider Surgery | DX: C06.9 Malignant neoplasm of mouth, unspecified (principal) | CPT/HCPCS: 99222; 99231; 99232 ==

== ENCOUNTER → 2023-09-23 20:33 | Outpatient (BNV) | payer MEDICARE, MEDICAID, SELFPAY | PROVIDERS: Admitting Provider Physician Assistant; Emergency Provider Emergency Medicine; Visit Provider Physician Assistant | DX: E83.52 Hypercalcemia (principal); B20 Human immunodeficiency virus [HIV] disease | CPT/HCPCS: 99223; 99232; 99233; 99239 ==

== ENCOUNTER → 2023-09-23 20:33 | Outpatient (BNV) | payer MEDICARE, SELFPAY | PROVIDERS: Admitting Provider Physician Assistant; Emergency Provider Emergency Medicine; Visit Provider Internal Medicine Nephrology | DX: E83.52 Hypercalcemia (principal) | CPT/HCPCS: 99223 ==